=== PATIENT | female | born 1950 | race Caucasian/White ===

== ENCOUNTER 2020-07-27 07:59 | Outpatient (REF) | payer MEDICARE, SELFPAY ==
[2020-07-27 09:11] LABS: MANUAL DIFF FLAG NO
[2020-07-27 09:15] LABS: Basophils Absolute Auto 0.1 X10*3/uL (0.0-0.2); Basophils Percent Auto 0.9 % (0-2); Eosinophils Absolute Auto 0.6 X10*3/uL (0.0-0.4); Eosinophils Percent Auto 6.8 % (0-4); Hematocrit 38.4 % (37-47); Hemoglobin 12.1 g/dl (12.0-16.0); Imm Gran Abs Auto 0.04 X10*3/uL (0.00-0.03); Imm Gran Pct Auto 0.5 % (0.0-0.4); Lymphocytes Absolute Auto 1.8 X10*3/uL (1.2-4.9); Lymphocytes Percent Auto 21.2 % (20-40); Mean Corpuscular HGB Conc 31.5 g/dl (31.0-35.0); Mean Corpuscular Hemoglobin 28.6 pg (27.0-33.0); Mean Corpuscular Volume 90.8 fL (80-98); Mean Platelet Volume 11.5 fL (9.4-12.3); Monocytes Absolute Auto 0.9 X10*3/uL (0.1-1.2); Monocytes Percent Auto 10.5 % (2-11); Neutrophils Absolute Auto 5.1 X10*3/uL (2.0-8.3); Neutrophils Percent Auto 60.1 % (45-73); Platelet Count 264 X10*3/uL (160-400); Red Blood Count 4.23 X10*6/uL (4.20-5.50); White Blood Count 8.5 X10*3/uL (4.8-10.8)
[2020-07-27 09:52] LABS: Alanine Aminotransferase 78 U/L (0-31); Albumin Level 3.4 g/dL (3.5-5.0); Alkaline Phosphatase 128 U/L (39-117); Anion Gap 13 (12-20); Aspartate Amino Transferase 68 U/L (5-31); Bilirubin Total 0.5 mg/dL (0.0-1.0); Blood Urea Nitrogen 17 mg/dL (9-16); Calcium 8.4 mg/dL (8.4-10.2); Carbon Dioxide 23 mmol/L (22-29); Chloride 108 mmol/L (96-108); Cholesterol 89 mg/dL; Estimated Glomerular Filt Rate > 60; Glucose Fasting 87 mg/dL (60-99); HDL Cholesterol 35 mg/dL; LDL Cholesterol Calculated 40 mg/dl; Potassium 4.4 mmol/L (3.3-5.1); Sodium 140 mmol/L (135-145); Total Protein 6.4 g/dL (6.5-8.0); Triglycerides 74 mg/dL
== END 2020-07-27 08:00 | disposition home or self-care (01) ==
LOC: HO.LAB 07:59
PROVIDERS: PCP Internal Medicine; Visit Provider Internal Medicine
DX: Z00.00 Encounter for general adult medical examination without abnormal findings (principal); E03.9 Hypothyroidism, unspecified; E11.9 Type 2 diabetes mellitus without complications
CPT/HCPCS: 36415; 80053; 80061; 84443; 85025

== ENCOUNTER 2021-07-15 07:43 | Outpatient (REF) | payer MEDICARE, SELFPAY ==
[2021-07-15 08:53] LABS: Alanine Aminotransferase 22 U/L (0-31); Aspartate Amino Transferase 25 U/L (5-31); Cholesterol 96 mg/dL; HDL Cholesterol 34 mg/dL; LDL Cholesterol Calculated 45 mg/dl; Triglycerides 88 mg/dL
== END 2021-07-15 07:44 | disposition home or self-care (01) ==
LOC: HO.LAB 07:43
PROVIDERS: PCP Internal Medicine; Visit Provider Internal Medicine Cardiovascular Disease
DX: I21.3 ST elevation (STEMI) myocardial infarction of unspecified site (principal)
CPT/HCPCS: 36415; 80061; 84450; 84460

== ENCOUNTER 2021-11-30 09:39 | Emergency (ER) | payer OTHER, MEDICARE, SELFPAY ==
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
[2021-11-30 09:49] VITALS: BP 174/80; BP 183/95; PULSE 110; PULSE 82; RESP 16; TEMP 36.8; O2SAT 98; BMI 27.4
[2021-11-30 11:34] VITALS: BP 142/78; PULSE 94; RESP 20; O2SAT 100
[2021-11-30 11:38] LABS: MANUAL DIFF FLAG NO
[2021-11-30 11:39] LABS: Basophils Absolute Auto 0.1 X10*3/uL (0.0-0.2); Basophils Percent Auto 0.9 % (0-2); Eosinophils Absolute Auto 0.2 X10*3/uL (0.0-0.4); Eosinophils Percent Auto 2.1 % (0-4); Hematocrit 44.9 % (37.0-47.0); Hemoglobin 14.1 g/dl (12.0-16.0); Imm Gran Abs Auto 0.01 X10*3/uL (0.00-0.03); Imm Gran Pct Auto 0.1 % (0.0-0.4); Lymphocytes Absolute Auto 1.5 X10*3/uL (1.2-4.9); Mean Corpuscular HGB Conc 31.4 g/dl (31.0-35.0); Mean Corpuscular Hemoglobin 27.4 pg (27.0-33.0); Mean Corpuscular Volume 87.2 fL (80.0-98.0); Mean Platelet Volume 10.7 fL (9.4-12.3); Monocytes Absolute Auto 0.6 X10*3/uL (0.1-1.2); Monocytes Percent Auto 7.9 % (2-11); Neutrophils Absolute Auto 4.8 x10*3/uL (2.0-8.3); Platelet Count 202 X10*3/uL (160-400); Red Blood Count 5.15 X10*6/uL (4.20-5.50); Red Cell Distribution Width 15.4 % (11.0-16.0)
[2021-11-30 12:00] LABS: Troponin-I High Sensitivity 23.3 ng/L (<3.5-17.0)
[2021-11-30 12:31] LABS: Alanine Aminotransferase 17 U/L (0-31); Albumin Level 3.4 g/dL (3.5-5.0); Alkaline Phosphatase 73 U/L (39-117); Anion Gap 15 (12-20); Aspartate Amino Transferase 27 U/L (5-31); Bilirubin Total 0.4 mg/dL (0.0-1.0); Blood Urea Nitrogen 12 mg/dL (9-16); C Reactive Protein 0.16 mg/dL (< or = 0.50); Calcium 8.6 mg/dL (8.4-10.2); Carbon Dioxide 23 mmol/L (22-29); Chloride 109 mmol/L (96-108); Creatinine Clr Calc Pharmacy 65.8; Estimated Glomerular Filt Rate > 60; Glucose Random 100 mg/dL (60-115); Sodium 142 mmol/L (135-145); Total Protein 6.7 g/dL (6.5-8.0)
[2021-11-30 12:35] LABS: Erythrocyte Sedimentation Rate 22 MM/HR (0-20)
[2021-11-30 12:36] LABS: Prothrombin Time 11.4 SEC (10.0-13.1)
[2021-11-30 12:39] LABS: Partial Thromboplastin Time 31.2 SEC (26.0-36.4)
[2021-11-30 12:59] LABS: Troponin-I High Sensitivity 40.5 ng/L (<3.5-17.0)
[2021-11-30 14:18] VITALS: BP 130/79; PULSE 85; RESP 14; O2SAT 98
[2021-11-30 14:20] LABS: Troponin-I High Sensitivity 55.8 ng/L (<3.5-17.0)
--- NOTE | 2021-11-30 15:15 | PC.NURSE ---
call out to [facility] transfer line @[phone] regarding transfer
--- NOTE | 2021-11-30 16:31 | PC.NURSE ---
report given to Alexandre bowen at [facility]
== END 2021-11-30 16:42 | disposition short-term general hospital (02) ==
PROVIDERS: Physician Assistant Medical; Emergency Provider Emergency Medicine; PCP Internal Medicine
DX: S26.91XA Contusion of heart, unspecified with or without hemopericardium, initial encounter (principal); V43.02XA Car driver injured in collision with other type car in nontraffic accident, initial encounter; I30.9 Acute pericarditis, unspecified; R77.8 Other specified abnormalities of plasma proteins; M54.2 Cervicalgia; M25.511 Pain in right shoulder; M54.9 Dorsalgia, unspecified; Z87.891 Personal history of nicotine dependence; Z95.0 Presence of cardiac pacemaker; Z79.82 Long term (current) use of aspirin; Z79.02 Long term (current) use of antithrombotics/antiplatelets; Y93.89 Activity, other specified; Y92.481 Parking lot as the place of occurrence of the external cause; Y99.9 Unspecified external cause status
CPT/HCPCS: 36415; 70450; 71250; 72125; 74176; 80053; 82550; 84484; 85025; 85610; 85652; 85730; 86140; 93005; 99285

== ENCOUNTER 2022-09-11 18:22 | Inpatient (IN) | payer MEDICARE, SELFPAY ==
--- NOTE | ~2022-09-11 | XR_ITS ---
EXAMINATION: XR CHEST CLINICAL INFORMATION: Chest pain. COMPARISON: CT chest 11/30/2021. TECHNIQUE: Frontal view of the chest was obtained. FINDINGS: Left-sided pacer with leads projecting over the right atrium and right ventricle. Stable prominence of the cardiomediastinal silhouette. Atherosclerotic disease of the aortic arch. Asymmetric focal haziness in the left lower lobe. No pleural effusion or pneumothorax. No acute osseous findings. The visualized upper abdomen is within normal limits. XR/XR chest 1V IMPRESSION: Asymmetric focal haziness in the left lower lung that could be related with pneumonia in the appropriate clinical context. Recommend a follow-up imaging after treatment.
--- NOTE | 2022-09-11 18:24 | ECG_ITS ---
Test Reason : CP Blood Pressure : / mmHG Vent. Rate : 085 BPM Atrial Rate : 085 BPM P-R Int : 184 ms QRS Dur : 124 ms QT Int : 398 ms P-R-T Axes : 050 -19 113 degrees QTc Int : 473 ms Atrial-sensed ventricular-paced rhythm with occasional Premature ventricular complexes Abnormal ECG When compared with ECG of 30-NOV-2021 11:54, Premature ventricular complexes are now Present Vent. rate has decreased BY 13 BPM Referred By: Apryl Leonard Electronically Signed By:Barry Gilliam
[2022-09-11 18:27] VITALS: BP 194/86; PULSE 90; RESP 16; TEMP 36.9; O2SAT 98; BMI 29.8
[2022-09-11] MEDS: Aspirin 81 MG TAB.CHEW 243 MG PO (19:03)
[2022-09-11] MEDS: Nitroglycerin 0.4 MG TAB.SUBL SUBLINGUAL (19:05)
--- NOTE | 2022-09-11 19:27 | PC.NURSE ---
Pt labs drawn and sent, medicated with SL nitro and asa, reports no pain but still some chest tightness. mild shortness of breath, O2 sat 96%, pt placed on 1L oxygen via nasal cannula. notified.
[2022-09-11 19:45] LABS: Alanine Aminotransferase 15 U/L (0-31); Albumin Level 3.3 g/dL (3.5-5.0); Alkaline Phosphatase 78 U/L (39-117); Anion Gap 10 (12-20); Aspartate Amino Transferase 27 U/L (5-31); Bilirubin Direct 0.1 mg/dL (0.0-0.5); Bilirubin Total 0.4 mg/dL (0.0-1.0); Blood Urea Nitrogen 12 mg/dL (9-16); Calcium 8.6 mg/dL (8.4-10.2); Carbon Dioxide 24 mmol/L (22-29); Chloride 110 mmol/L (96-108); Creatinine Clr Calc Pharmacy 60.4; Estimated Glomerular Filt Rate > 60; Glucose Random 121 mg/dL (60-115); Magnesium 2.2 mg/dL (1.6-2.6); Potassium 5.1 mmol/L (3.3-5.1); Sodium 139 mmol/L (135-145); Total Protein 6.7 g/dL (6.5-8.0)
[2022-09-11 19:56] LABS: Troponin-I High Sensitivity < 2.7 ng/L (<3.5-17.0)
[2022-09-11 20:09] LABS: Basophils Absolute Auto 0.1 X10*3/uL (0.0-0.2); Basophils Percent Auto 1.3 % (0-2); Eosinophils Absolute Auto 0.2 X10*3/uL (0.0-0.4); Eosinophils Percent Auto 2.7 % (0-4); Hematocrit 41.1 % (37.0-47.0); Hemoglobin 13.1 g/dl (12.0-16.0); Imm Gran Abs Auto 0.04 X10*3/uL (0.00-0.03); Imm Gran Pct Auto 0.6 % (0.0-0.4); Lymphocytes Absolute Auto 1.5 X10*3/uL (1.2-4.9); Lymphocytes Percent Auto 22.1 % (20-40); MANUAL DIFF FLAG SCAN; Mean Corpuscular HGB Conc 31.9 g/dl (31.0-35.0); Mean Corpuscular Hemoglobin 27.5 pg (27.0-33.0); Mean Corpuscular Volume 86.2 fL (80.0-98.0); Monocytes Absolute Auto 0.6 X10*3/uL (0.1-1.2); Monocytes Percent Auto 9.1 % (2-11); Neutrophils Absolute Auto 4.4 x10*3/uL (2.0-8.3); Neutrophils Percent Auto 64.2 % (45-73); PLT CLUMP 1; Red Blood Count 4.77 X10*6/uL (4.20-5.50); Red Cell Distribution Width 14.4 % (11.0-16.0); SCAN SMEAR FLAG 1
[2022-09-11 20:11] LABS: White Blood Count 6.9 X10*3/uL (4.8-10.8)
[2022-09-11 20:13] LABS: Platelet Count 184 X10*3/uL (160-400)
[2022-09-11 20:14] LABS: SLIDE REVIEW VERIFIED
--- NOTE | 2022-09-11 20:51 | ED.CHESTPAIN ---
HPI - Chest Pain General Chief Complaint: Chest Pain Stated Complaint: Possible Heart Attack/Tightness in chest Time Seen by Provider: 09/11/22 18:30 Source: patient Mode of arrival: ambulatory Limitations: no limitations History of Present Illness HPI narrative: 72-year-old female with history of coronary artery disease with a pacemaker, stent placed in 2020 presents with chest pain. The chest pain is substernal. Described as a heaviness and tightness. Symptoms occurred at rest. There is no radiation of pain. There is associated nausea but no vomiting and there is also some associated shortness of breath. Patient has never had symptoms like this before. When she started having the pain, the symptoms are severe and clutching her chest. At this time, the symptoms are quite mild. She does have some mild shortness of breath complaints. She has no cough, mucus production. She denies any swelling in her legs. She has no history of PE or DVT. She did take a low-dose aspirin earlier today. Related Data Home Medications Medication Instructions Recorded Confirmed aspirin 81 mg tablet,delayed 81 mg PO DAILY 05/30/20 12/27/21 release (Adult Low Dose Aspirin) atorvastatin 80 mg tablet 80 mg PO BEDTIME 05/30/20 12/27/21 carvedilol 3.125 mg tablet 3.125 mg PO BID 12/27/21 12/27/21 Allergies Allergy/AdvReac Type Severity Reaction Status Date / Time No Known Allergies Allergy Mild N/A Verified 09/11/22 18:26 Review of Systems Review of Systems: CONSTITUTIONAL: Denies weight loss, fever and chills. HEENT: Denies changes in vision and hearing. RESPIRATORY: + SOB - cough. CV: Denies palpitations + CP. GI: Denies abdominal pain, nausea, vomiting and diarrhea. : Denies dysuria and urinary frequency. MSK: Denies myalgia and joint pain. SKIN: Denies rash and pruritus. NEUROLOGICAL: Denies headache and syncope. PSYCHIATRIC: Denies recent changes in mood. Denies anxiety and depression. All other ROS are negative unless in HPI PMFSH Past Medical History Medical History Coronary artery disease History of pacemaker Surgical History History of coronary artery stent placement Family History Family History Mother No problems noted. Father No problems noted. Social History Social History Alcohol intake: never Patient Tobacco Use Status: Former Tobacco user Quit Date: 05/17/20 Tobacco use type: Cigarette Cigarette Packs Per Day: 0.25 Advance Directives: No Advance Directives Information Provided: Yes Physical Exam Vital Signs: Vital Signs: Last Vital Signs Temp 98.5 F 09/11/22 18:27 Pulse 90 09/11/22 18:27 Resp 16 09/11/22 18:27 BP 194/86 H 09/11/22 18:27 Pulse Ox 98 09/11/22 18:27 O2 Del Method Room Air 09/11/22 18:27 BMI result Body Mass Index 29.8 GEN: Well developed, no acute distress, alert, oriented HEENT: Normocephalic, atraumatic, normal external ears, nose appears normal, no oropharyngeal edema or exudates Eyes: Normal to appearance Neck: Supple, no lymphadenopathy Respiratory: Talks in complete sentences, no respiratory distress, clear to auscultation bilaterally Cardiovascular: Regular rate and rhythm, no murmurs rubs or gallops Abdomen: Soft, nontender, nondistended, no guarding, no rebound Back: No CVA tenderness Extremities: No clubbing cyanosis or edema Neurologic: No focal neurologic deficits, cranial nerves 2-12 intact, strength is 5/5 bilaterally Skin: No rash Course Course Course Narrative: 72-year-old female with history of coronary artery disease with a very good story for acute cardiac pain. She was having significant substernal chest pain that was described as tightening heavy. Did not radiate to her back or to her extremities or jaw. Symptoms did occur at rest which is somewhat atypical however she does have a coronary stent in place and a pacemaker. She is currently chest pain-free denies any shortness of breath. She has received a total of 324 mg of aspirin. I am starting her on heparin drip for unstable angina. Chest x-ray did not reveal any acute cardiopulmonary disease, wide mediastinum, apical cap. She has equal pulses bilaterally. Doubt aortic dissection. I discussed all results with the patient. She understands the reasoning for admission at this time. There is no definite indication to transfer to a higher level of care at this time. There is no definite indication for emergent cardiac catheterization. Reevaluation(s) Reevaluation #1: HEART Pathway for Early Discharge in Acute Chest Pain from [employer] on 09/11/2022 All calculations should be rechecked by clinician prior to use RESULT SUMMARY: 7 points HEART Pathway Score High risk 12-65% 30-day MACE Admit to hospital or observation. Further testing indicated. INPUTS: History ?> 2 = Highly suspicious EKG ?> 1 = Non-specific repolarization disturbance Age ?> 2 = >=5 Risk factors ?> 2 = >= risk factors or history of atherosclerotic disease Initial troponin ?> 0 = <=ormal limit Time: 20:51 Medications Administered Discontinued Medications Generic Name Dose Route Start Last Admin Trade Name Freq PRN Reason Stop Dose Admin Aspirin 243 mg 09/11/22 18:57 09/11/22 19:03 Aspirin 81 Mg Tab.Chew PO 09/11/22 18:58 243 mg ONCE ONE Administration Nitroglycerin 0.4 mg 09/11/22 18:57 09/11/22 19:05 Nitroglycerin 0.4 Mg Tab.Subl SUBLINGUAL 09/11/22 18:58 0.4 mg ONCE ONE Administration Medical Decision Making Medical Decision Making [facility] Narrative: 72-year-old female with history of coronary artery disease presents with chest pain. Story is good for cardiac pain. Initial EKG shows a paced rhythm. Will obtain a chest x-ray, placed on a construction carpenters helper, obtain at least 1 set of cardiac enzymes. Patient will get aspirin. Will try sublingual nitroglycerin. Differential diagnosis includes acute coronary syndrome, NSTEMI, unstable angina, atypical chest pain, musculoskeletal chest pain, anxiety, panic, less likely PE, dissection. Regardless of our findings tonight, patient will warrant hospitalization given the suspected elevated heart score. Differential Diagnosis Differential Diagnoses: The differential diagnosis associated with the presentation includes (See above) Admission/Observation Consideration of admission/observation: Escalation of care including admission/observation considered Consult Healthcare Provider Management of the patient was discussed with: Hospitalist Lab Data [facility] Lab Attestation statement: I reviewed the patient's lab results. 09/11/22 19:23 09/11/22 19:23 Labs: Lab Results 09/11/22 09/11/22 09/11/22 Range/Units 19:23 19:23 19:23 WBC 6.9 (4.8-10.8) X10*3/uL RBC 4.77 (4.20-5.50) X10*6/uL Hgb 13.1 (12.0-16.0) g/dl Hct 41.1 (37.0-47.0) % MCV 86.2 (80.0-98.0) fL MCH 27.5 (27.0-33.0) pg MCHC 31.9 (31.0-35.0) g/dl RDW 14.4 (11.0-16.0) % Plt Count 184 (160-400) X10*3/uL MPV 11.0 (9.4-12.3) fL Immature Gran % (Auto) 0.6 H (0.0-0.4) % Neut % (Auto) 64.2 (45-73) % Lymph % (Auto) 22.1 (20-40) % [place] % (Auto) 9.1 (2-11) % Eos % (Auto) 2.7 (0-4) % Baso % (Auto) 1.3 (0-2) % Lymph # (Auto) 1.5 (1.2-4.9) X10*3/uL [place] # (Auto) 0.6 (0.1-1.2) X10*3/uL Eos # (Auto) 0.2 (0.0-0.4) X10*3/uL Baso # (Auto) 0.1 (0.0-0.2) X10*3/uL Abs Immat Gran (auto) 0.04 H (0.00-0.03) X10*3/uL Absolute Neuts (auto) 4.4 (2.0-8.3) x10*3/uL Absolute Nucleated RBC 0.000 (0.0-0.012) X10*3/uL Nucleated RBC % (auto) 0.0 (0.0-0.2) /100WBC Smear Tech's Comments VERIFIED Sodium 139 (135-145) mmol/L Potassium 5.1 (3.3-5.1) mmol/L Chloride 110 H (96-108) mmol/L Carbon Dioxide 24 (22-29) mmol/L Anion Gap 10 L (12-20) BUN 12 (9-16) mg/dL Creatinine 0.83 (0.5-1.4) mg/dL Estim Creat Clear Calc 60.4 Estimated GFR > 60 Random Glucose 121 H (60-115) mg/dL Calcium 8.6 (8.4-10.2) mg/dL Magnesium 2.2 (1.6-2.6) mg/dL Total Bilirubin 0.4 (0.0-1.0) mg/dL Direct Bilirubin 0.1 (0.0-0.5) mg/dL AST 27 (5-31) U/L ALT 15 (0-31) U/L Alkaline Phosphatase 78 (39-117) U/L Troponin I High Sens < 2.7 (<3.5-17.0) ng/L Total Protein 6.7 (6.5-8.0) g/dL Albumin 3.3 L (3.5-5.0) g/dL Independent Interpretation I performed an independent interpretation of an: EKG (Ventricularly paced rhythm, heart rate 85, PVC similarly findings on 11/30/2021) and Plain X-Ray (No acute cardiopulmonary disease) Radiology Impression Discussion of test interpretation with radiology: I have reviewed the radiologist's reading. Radiologist Impression: XR/XR chest 1V IMPRESSION: Asymmetric focal haziness in the left lower lung that could be related with pneumonia in the appropriate clinical context. Recommend a follow-up imaging after treatment. ? Dictated By: Jany De Luna Signed By: <Electronically signed by Deysi De Luna in OV> 09/11/22 1900 External Record Review External record reviewed: Other ([facility] cardiology records) Tests considered The following testing was considered but not selected: CT chest: No definite indication at this time Prescription Management I considered prescription management with: Pain Medication Chronic Conditions Patient?s care impacted by: Hypertension and Other (CAD) Discharge Plan Discharge Clinical Impression: Unstable angina Patient Disposition: Admitted As Inpatient Prescriptions: No Action atorvastatin 80 mg tablet 80 mg PO BEDTIME aspirin [Adult Low Dose Aspirin] 81 mg tablet,delayed release (DR/EC) 81 mg PO DAILY carvedilol 3.125 mg tablet 3.125 mg PO BID
[2022-09-11 21:18] VITALS: BMI 30.3
[2022-09-11 21:20] LABS: Hemoglobin 13.1 g/dl (12.0-16.0); Mean Corpuscular Hemoglobin 27.8 pg (27.0-33.0); Mean Platelet Volume 10.3 fL (9.4-12.3); Platelet Count 210 X10*3/uL (160-400); Red Blood Count 4.71 X10*6/uL (4.20-5.50); Red Cell Distribution Width 14.4 % (11.0-16.0); White Blood Count 9.3 X10*3/uL (4.8-10.8)
[2022-09-11 21:26] LABS: Prothrombin Time 11.9 SEC (10.0-13.1)
[2022-09-11 21:29] LABS: PTT Heparin Drip 30.9 SEC (53-77.9)
[2022-09-11 21:55] LABS: Troponin-I High Sensitivity 9.1 ng/L (<3.5-17.0)
--- NOTE | 2022-09-11 22:00 | P.CONHOSP_ITS ---
History of Present Illness Data of Consult Primary Care Provider: Nathan Orr MD [facility] Medical History Coronary artery disease History of pacemaker Family History Mother No problems noted. Father No problems noted. Surgical History History of coronary artery stent placement Social History Alcohol intake: never Patient Tobacco Use Status: Former Tobacco user Quit Date: 05/17/20 Tobacco use type: Cigarette Cigarette Packs Per Day: 0.25 Advance Directives: No Advance Directives Information Provided: Yes Meds Allergies Allergy/AdvReac Type Severity Reaction Status Date / Time No Known Allergies Allergy Mild N/A Verified 09/11/22 18:26 Active Medications: Current Medications Acetaminophen (Acetaminophen 325 Mg Tablet) 650 mg PO Q6H PRN PRN Reason: Pain, Mild (Pain Scale 1-3) Docusate Sodium (Docusate Sodium 100 Mg Capsule) 100 mg PO DAILY PRN PRN Reason: Constipation Heparin Sodium (Porcine) (Heparin Sodium,Porcine 5,000 Unit/Ml Vial) 3,200 unit 40 unit/kg (3200 unit) IVPUSH PROTOCOL BOLUS PRN; Protocol PRN Reason: 40 unit/kg - Heparin Protocol Heparin Sodium (Porcine) (Heparin Sodium,Porcine 5,000 Unit/Ml Vial) 6,400 unit 80 unit/kg (6400 unit) IVPUSH PROTOCOL BOLUS PRN; Protocol PRN Reason: 80 unit/kg - Heparin Protocol Heparin Sodium/Sodium Chloride (Heparin Sodium,Porcine/1/2ns) 25,000 unit in 250 mls @ 0 mls/hr IVCONT .Q0M JOSEPHINE; Protocol Ondansetron HCl (Ondansetron Hcl 4 Mg/2 Ml Vial) 4 mg IVPUSH Q8H PRN PRN Reason: Nausea and Vomiting Pharmacy Consult (Consult Rx Perform Med Rec) 1 each MISCELLANE ONCE PRN PRN Reason: Consult order Sodium Chloride (0.9 % Sodium Chloride Flush 3 Ml Syringe) [facility] Home Medications Medication Instructions Recorded Confirmed Last Taken Type aspirin 81 mg tablet,delayed 81 mg PO DAILY 05/30/20 12/27/21 Unknown History release (Adult Low Dose Aspirin) atorvastatin 80 mg tablet 80 mg PO BEDTIME 05/30/20 12/27/21 Unknown History carvedilol 3.125 mg tablet 3.125 mg PO BID 12/27/21 12/27/21 Unknown History Physical Exam Vital Signs and Narrative: Vital Signs: Last Vital Signs Temp 98.5 F 09/11/22 18:27 Pulse 90 09/11/22 18:27 Resp 16 09/11/22 18:27 BP 194/86 H 09/11/22 18:27 Pulse Ox 98 09/11/22 18:27 O2 Del Method Room Air 09/11/22 18:27 BMI result Body Mass Index 30.3 Results Labs 09/11/22 21:14 09/11/22 19:23 Labs: Laboratory Results - last 24 hr 09/11/22 09/11/22 09/11/22 19:23 19:23 19:23 MCV 86.2 MCH 27.5 MCHC 31.9 RDW 14.4 Plt Count 184 MPV 11.0 Immature Gran % (Auto) 0.6 H Neut % (Auto) 64.2 Lymph % (Auto) 22.1 [place] % (Auto) 9.1 Eos % (Auto) 2.7 Baso % (Auto) 1.3 Lymph # (Auto) 1.5 [place] # (Auto) 0.6 Eos # (Auto) 0.2 Baso # (Auto) 0.1 Abs Immat Gran (auto) 0.04 H Absolute Neuts (auto) 4.4 Absolute Nucleated RBC 0.000 Nucleated RBC % (auto) 0.0 Smear Tech's Comments VERIFIED PT INR aPTT Heparin Protocol Anion Gap 10 L Estim Creat Clear Calc 60.4 Estimated GFR > 60 Random Glucose 121 H Calcium 8.6 Magnesium 2.2 Total Bilirubin 0.4 Direct Bilirubin 0.1 AST 27 ALT 15 Alkaline Phosphatase 78 Troponin I High Sens < 2.7 Total Protein 6.7 Albumin 3.3 L 09/11/22 09/11/22 09/11/22 21:14 21:14 21:14 MCV 87.0 MCH 27.8 MCHC 32.0 RDW 14.4 Plt Count 210 MPV 10.3 Immature Gran % (Auto) Neut % (Auto) Lymph % (Auto) [place] % (Auto) Eos % (Auto) Baso % (Auto) Lymph # (Auto) [place] # (Auto) Eos # (Auto) Baso # (Auto) Abs Immat Gran (auto) Absolute Neuts (auto) Absolute Nucleated RBC 0.000 Nucleated RBC % (auto) 0.0 Smear Tech's Comments PT 11.9 INR 1.0 aPTT Heparin Protocol 30.9 L Anion Gap Estim Creat Clear Calc Estimated GFR Random Glucose Calcium Magnesium Total Bilirubin Direct Bilirubin AST ALT Alkaline Phosphatase Troponin I High Sens 9.1 D Total Protein Albumin Imaging Radiologist's Impressions: Impressions Chest X-Ray 09/11/22 18:48 IMPRESSION: Asymmetric focal haziness in the left lower lung that could be related with pneumonia in the appropriate clinical context. Recommend a follow-up imaging after treatment. Assessment and Plan Time Spent With Patient Time: Total time managing care of this patient today ____ minutes.
--- NOTE | 2022-09-11 22:06 | P.HPHOSP_ITS ---
History of Present Illness Date of Service: 09/11/22 Attending physician on admission: German Maza Chief Complaint: chest pain 72-year-old female with history of coronary artery disease with h/o posterior STEMI s/p POBA and IDALIA to LCx, h/o complete heart block s/p pacemaker, ischemic cardiomyopathy, htn, and former smoker with 40+ pack year history who quit 2 years ago presents to the ED earlier to day for evaluation of chest pain which started about 1 hour prior to arrival. Pain was retrosternal in nature rated 9/10 described as burning and squeezing without any radiation. Pain at rest and with exertion. Associated symptoms included some nausea and lightheadedness. No diaphoresis, sob, syncope, vomiting, cough, fever, chills. On arrival, pt hypertensive to 194/86, vitals otherwise stable. No leukocytosis or anemia. Renal function normal, electrolytes normal. Initial troponin undetectable, repeat 9.1. CXR shows asymmetric focal haziness in the left lower lung, otherwi se negative for any acute abnormality. EKG shows atrial sensed ventricular paced rhythm with occasional PVCs, rate 85. In the ED, given the 243 mg aspirin and nitro tab with full resolution of chest pain and improvement in blood pressure to 146/83. Patient started on heparin drip per protocol for management unstable angina to be admitted for further management. Review of Systems Review of Systems: General: No fevers, malaise, unintentional weight loss HEENT: No blurred vision, diplopia. No sore throat, nasal congestion, rhinorrhea, sinus pain, ear pain Cardiovascular: +chest pain. No palpitations, or leg edema Respiratory: No shortness of breath, wheezing, cough GI: +nausea. No abdominal pain, vomiting, diarrhea, constipation, melena, hematochezia : No dysuria, hematuria, increased urinary frequency, decreased urinary output MSK: No myalgia, back pain Neuro: No headaches, weakness, paresthesias Skin: No rashes or lesions [facility] Medical History Adrenal nodule Coronary artery disease History of complete heart block History of pacemaker History of ST elevation myocardial infarction (STEMI) Hypertension Ischemic cardiomyopathy Family History Mother No problems noted. Father No problems noted. Surgical History History of coronary artery stent placement Social History Alcohol intake: never Patient Tobacco Use Status: Former Tobacco user Quit Date: 05/17/20 Tobacco use type: Cigarette Cigarette Packs Per Day: 0.25 Advance Directives: No Advance Directives Information Provided: Yes Meds Allergies Allergy/AdvReac Type Severity Reaction Status Date / Time No Known Allergies Allergy Mild N/A Verified 09/11/22 18:26 Active Medications: Current Medications Acetaminophen (Acetaminophen 325 Mg Tablet) 650 mg PO Q6H PRN PRN Reason: Pain, Mild (Pain Scale 1-3) Docusate Sodium (Docusate Sodium 100 Mg Capsule) 100 mg PO DAILY PRN PRN Reason: Constipation Heparin Sodium (Porcine) (Heparin Sodium,Porcine 5,000 Unit/Ml Vial) 3,200 unit 40 unit/kg (3200 unit) IVPUSH PROTOCOL BOLUS PRN; Protocol PRN Reason: 40 unit/kg - Heparin Protocol Heparin Sodium (Porcine) (Heparin Sodium,Porcine 5,000 Unit/Ml Vial) 6,400 unit 80 unit/kg (6400 unit) IVPUSH PROTOCOL BOLUS PRN; Protocol PRN Reason: 80 unit/kg - Heparin Protocol Heparin Sodium/Sodium Chloride (Heparin Sodium,Porcine/1/2ns) 25,000 unit in 250 mls @ 0 mls/hr IVCONT .Q0M JOSEPHINE; Protocol Ondansetron HCl (Ondansetron Hcl 4 Mg/2 Ml Vial) 4 mg IVPUSH Q8H PRN PRN Reason: Nausea and Vomiting Pharmacy Consult (Consult Rx Perform Med Rec) 1 each MISCELLANE ONCE PRN PRN Reason: Consult order Sodium Chloride (0.9 % Sodium Chloride Flush 3 Ml Syringe) 3 ml [facility] Home Medications Medication Instructions Recorded Confirmed Last Taken Type aspirin 81 mg tablet,delayed 81 mg PO DAILY 05/30/20 12/27/21 Unknown History release (Adult Low Dose Aspirin) atorvastatin 80 mg tablet 80 mg PO BEDTIME 05/30/20 12/27/21 Unknown History carvedilol 3.125 mg tablet 3.125 mg PO BID 12/27/21 12/27/21 Unknown History Physical Exam Vital Signs and Narrative: Vital Signs: Last Vital Signs Temp 98.5 F 09/11/22 18:27 Pulse 90 09/11/22 18:27 Resp 16 09/11/22 18:27 BP 194/86 H 09/11/22 18:27 Pulse Ox 98 09/11/22 18:27 O2 Del Method Room Air 09/11/22 18:27 BMI result Body Mass Index 30.3 Constitutional - Awake and Alert, No apparent distress Eyes - PERRLA, EOMI Cardiovascular - S1S2, RRR, No edema Respiratory - Normal lung expansion, Normal respiratory effort, No respiratory distress, CTA bilaterally Gastrointestinal - NT / ND; +BS; No rebound or guarding Extremities - no calf tenderness bilaterally, no swelling Skin - Warm/Dry Neurological - Alert & oriented x3 Psychological - Appropriate affect Results Labs 09/11/22 21:14 09/11/22 19:23 Labs: Laboratory Results - last 24 hr 09/11/22 09/11/22 09/11/22 19:23 19:23 19:23 MCV 86.2 MCH 27.5 MCHC 31.9 RDW 14.4 Plt Count 184 MPV 11.0 Immature Gran % (Auto) 0.6 H Neut % (Auto) 64.2 Lymph % (Auto) 22.1 [place] % (Auto) 9.1 Eos % (Auto) 2.7 Baso % (Auto) 1.3 Lymph # (Auto) 1.5 [place] # (Auto) 0.6 Eos # (Auto) 0.2 Baso # (Auto) 0.1 Abs Immat Gran (auto) 0.04 H Absolute Neuts (auto) 4.4 Absolute Nucleated RBC 0.000 Nucleated RBC % (auto) 0.0 Smear Tech's Comments VERIFIED PT INR aPTT Heparin Protocol Anion Gap 10 L Estim Creat Clear Calc 60.4 Estimated GFR > 60 Random Glucose 121 H Calcium 8.6 Magnesium 2.2 Total Bilirubin 0.4 Direct Bilirubin 0.1 AST 27 ALT 15 Alkaline Phosphatase 78 Troponin I High Sens < 2.7 Total Protein 6.7 Albumin 3.3 L 09/11/22 09/11/22 09/11/22 21:14 21:14 21:14 MCV 87.0 MCH 27.8 MCHC 32.0 RDW 14.4 Plt Count 210 MPV 10.3 Immature Gran % (Auto) Neut % (Auto) Lymph % (Auto) [place] % (Auto) Eos % (Auto) Baso % (Auto) Lymph # (Auto) [place] # (Auto) Eos # (Auto) Baso # (Auto) Abs Immat Gran (auto) Absolute Neuts (auto) Absolute Nucleated RBC 0.000 Nucleated RBC % (auto) 0.0 Smear Tech's Comments PT 11.9 INR 1.0 aPTT Heparin Protocol 30.9 L Anion Gap Estim Creat Clear Calc Estimated GFR Random Glucose Calcium Magnesium Total Bilirubin Direct Bilirubin AST ALT Alkaline Phosphatase Troponin I High Sens 9.1 D Total Protein Albumin Imaging Radiologist's Impressions: Impressions Chest X-Ray 09/11/22 18:48 IMPRESSION: Asymmetric focal haziness in the left lower lung that could be related with pneumonia in the appropriate clinical context. Recommend a follow-up imaging after treatment. Assessment and Plan (1) Unstable angina: Status: Acute Plan 72-year-old female with history of coronary artery disease with h/o posterior STEMI s/p POBA and IDALIA to LCx 04/2020, h/o complete heart block s/p pacemaker, ischemic cardiomyopathy, htn, and former smoker with 40+ pack year history who quit 2 years ago admitted for further management of unstable angina. #Unstable angina -Initial trop <2.7, repeat 9.0 -Repeat trop am -EKG without any acute ischemic changes -IV heparin per protocol -Echocardiogram am -Cardiology consult -Cardiac diet -continue carvedilol, asa, statin -Monitor on telemetry #CAD/Ischemic cardiomyopathy -as above -follows outpatient with Dr. Mayes in cardiology DVt prophylaxis- heparin drip full code Pt requires inpt stay at least 2 midnights for management of unstable angina on heparin drip per protocol Time Spent With Patient Time: Total time managing care of this patient today ____ minutes. Quality Stroke Does the patient have a stroke diagnosis?: No VTE Prior VTE?: No VTE Risk Level:: Medical - moderate - high VTE Device Contraindication: Treatment Not Indicated VTE Drug Contraindication: N/A - Med Ordered
[2022-09-11] MEDS: Heparin Sodium,Porcine 5,000 UNIT/ML VIAL 6300 UNIT IVPUSH (22:09)
[2022-09-11] MEDS: Heparin Sodium,Porcine/1/2NS 25,000 UNIT/250 ML IV.SOLN 11.23 UNIT IVCONT (22:13)
[2022-09-11] MEDS: carvediloL 3.125 MG TABLET PO (22:20)
[2022-09-11 23:01] VITALS: BP 113/73; PULSE 84; RESP 22; O2SAT 97
--- NOTE | 2022-09-12 03:38 | PC.NURSE ---
Pt given room 483-1, report given to SHANTEL Palma
[2022-09-12 03:58] VITALS: BP 141/77; PULSE 78; RESP 18; TEMP 36.5; O2SAT 96
[2022-09-12 06:36] LABS: MANUAL DIFF FLAG NO
[2022-09-12 06:44] LABS: Basophils Absolute Auto 0.1 X10*3/uL (0.0-0.2); Basophils Percent Auto 0.6 % (0-2); Eosinophils Absolute Auto 0.2 X10*3/uL (0.0-0.4); Eosinophils Percent Auto 1.7 % (0-4); Hemoglobin 12.6 g/dl (12.0-16.0); Imm Gran Abs Auto 0.04 X10*3/uL (0.00-0.03); Imm Gran Pct Auto 0.4 % (0.0-0.4); Lymphocytes Absolute Auto 1.6 X10*3/uL (1.2-4.9); Lymphocytes Percent Auto 17.7 % (20-40); Mean Corpuscular HGB Conc 31.5 g/dl (31.0-35.0); Mean Corpuscular Hemoglobin 27.4 pg (27.0-33.0); Mean Platelet Volume 11.5 fL (9.4-12.3); Monocytes Absolute Auto 0.8 X10*3/uL (0.1-1.2); Monocytes Percent Auto 8.3 % (2-11); Neutrophils Absolute Auto 6.5 x10*3/uL (2.0-8.3); Neutrophils Percent Auto 71.3 % (45-73); Platelet Count 210 X10*3/uL (160-400); Red Cell Distribution Width 14.6 % (11.0-16.0); White Blood Count 9.1 X10*3/uL (4.8-10.8)
[2022-09-12 06:55] LABS: Anion Gap 9 (12-20); Blood Urea Nitrogen 12 mg/dL (9-16); Calcium 8.7 mg/dL (8.4-10.2); Carbon Dioxide 25 mmol/L (22-29); Chloride 108 mmol/L (96-108); Estimated Glomerular Filt Rate > 60; Glucose Random 101 mg/dL (60-115); Potassium 4.4 mmol/L (3.3-5.1); Sodium 138 mmol/L (135-145)
[2022-09-12 06:58] LABS: INTERNATIONAL NORM RATIO 1.1 (0.9-1.1); Prothrombin Time 12.6 SEC (10.0-13.1)
--- NOTE | 2022-09-12 07:00 | CA_ITS ---
Transthoracic Echocardiogram Patient (Last, First, Middle): Lisa Trinidad, Gender: Female Date of : 1950 Age: 72 Procedure Date: 09/12/2022 Procedure Type: Transthoracic Echocardiogram Location: [facility] [place] Height: 162.56 cm Weight: 79.83 kg BSA: 1.85 m2 Heart Rate: 72 bpm BP: 116 / 66 mmHg Coil Winding Supervisor: CORY Referring MD: Chelsea GLYNN Symptoms: unstable angina Study Quality: Adequate ECG Rhythm: Arrhythmia Conclusions: - Normal left ventricular size and systolic function. There is mildly increased left ventricular wall thickness. The visually estimated ejection fraction is between 60-65%. There is evidence of regional wall motion abnormalities. Diastolic function is indeterminate on the basis of available data. - The basal inferior and basal inferoseptal segments are akinetic. - Normal right ventricular cavity size and systolic function. There is a pacemaker wire seen in the right ventricle. Findings Left Ventricle Normal left ventricular size and systolic function. There is mildly increased left ventricular wall thickness. The visually estimated ejection fraction is between 60-65%. There is evidence of regional wall motion abnormalities. Diastolic function is indeterminate on the basis of available data. Wall Motion Rest Echo Findings The basal inferior and basal inferoseptal segments are akinetic. Right Ventricle Normal right ventricular cavity size and systolic function. There is a pacemaker wire seen in the right ventricle. Atria The left atrium is normal in size. The right atrium is normal in size. Aortic Valve Normal aortic valve structure and function. There is no aortic valve stenosis. There is trace (trivial) aortic valve regurgitation. Mitral Valve The mitral valve appears normal. There is no mitral valve regurgitation. There is no mitral valve stenosis. Pulmonic Valve The pulmonic valve is likely normal. Tricuspid Valve Normal tricuspid valve structure and function. Normal right atrial pressure. Mild pulmonary hypertension is present. Great Vessels There is mild dilatation of the ascending aorta measuring 4.00 cm. Venous The inferior vena cava is normal in size and collapses greater than 50% with inspiration. Pericardium/Pleural There is no evidence of pericardial effusion. Prior Study Comparison No prior study available for comparison. Measurements 2D Linear Measurements IVSd: 1.23 0.6-0.9/0.6-1.0 cm LVIDd: 4.43 3.9-5.3/4.2-5.9 cm LVIDd Index: 2.39 2.4-3.2/2.2-3.1 cm/m2 LVIDs: 3.53 2.0-3.6 cm LVPWd: 1.18 0.7-1.1 cm LA Diam: 3.00 2.7-3.8/3.0-4.0 cm LAIDs Index: 1.62 1.5-2.3 cm/m2 LV Mass: 242.40 67-162/88-224 g LV Mass Index: 131.03 43-95/49-115 g/m2 LVOT Diam: 2.20 3.0+(-)1.3 cm 2D Systolic Function EF 4C: 46.90 >55% EF 2C: 58.80 >55% EF BiP: 50.20 >55% Mitral Valve MV Pk E: 0.70 MV PK A: 0.88 MV Decel Time: 182.00 E/A: 0.80 E'Lateral: 4.46 E'Medial: 3.48 E/E' Med: 20.10 E/E' Lat: 15.70 PHT: 53.00 MVA PHT: 4.15 Decel Bartholomew: 3.84 Aortic Valve AoV Pk Terrance: 1.21 AoV Mn Terrance: 0.90 AoV VTI: 0.23 AoV Pk Grad: 6.00 Aov Mn Grad: 4.00 RUBEN Cont.VTI: 3.41 AI Pk Terrance: 3.60 AI Bartholomew: 1.06 LVOT LVOT Pk Terrance: 1.13 LVOT Mn Terrance: 0.83 LVOT VTI: 0.21 LVOT Pk Grad: 5.00 LVOT Mn Grad: 3.00 LVOT Diam: 2.20 LVOT Area: 3.80 Diastolic Function MV Pk E: 0.70 MV Pk A: 0.88 E/A: 0.80 E'Medial: 3.48 E/E' Med: 20.10 E' Laterial: 4.46 E/E' Lat: 15.70 Right Ventricle TAPSE (mm): 23.50 TVS' Terrance: 12.10 Tricuspid Valve TR Pk Terrance: 1.75 TR Pk Grad: 12.00 RA Press: 3.00 RVSP: 15.00 Great Vessels Aorta Sinus of Valsalva: 3.70 2.0-3.5 cm Ao Asc: 4.00 2.1-3.4 cm Pulmonary Valve PV Pk Terrance: 0.92 Peak PV Grad: 3.00 Updated in Other Vendor System with Status of Final Barry Gilliam MD electronically signed on 09/12/2022 4:00:55 PM with status of Final
[2022-09-12 07:05] LABS: Troponin-I High Sensitivity 5.6 ng/L (<3.5-17.0)
[2022-09-12 07:08] VITALS: BP 116/66; PULSE 63; RESP 20; TEMP 36.8; O2SAT 96
--- NOTE | 2022-09-12 07:11 | PHA.MEDREC ---
Pharmacy Consult ? Medication Reconciliation Pharmacy has completed the medication reconciliation. Reviewed med rec done by nursing (Sara).
[2022-09-12 07:28] LABS: PTT Heparin Drip 194.7 SEC (53-77.9)
--- NOTE | 2022-09-12 09:14 | MHC.CM.PN ---
CM ATTEMPTED TO MEET W/PT HOWEVER PT HAVING ECCHO, CM WILL REVISIT.
[2022-09-12 09:18] LABS: PTT Heparin Drip 80.6 SEC (53-77.9)
[2022-09-12 11:09] VITALS: BP 124/70; PULSE 74; RESP 20; TEMP 36.2; O2SAT 96
--- NOTE | 2022-09-12 12:23 | P.CONCA_ITS ---
History of Present Illness History of Present Illness Date of Service: 09/12/22 Requesting physician: Cari Phillips Chief complaint: unstable angina Narrative: 72 female with known CAD and history of ST-elevation SC when she had occluded circumflex which was treated with drug-eluting stent. She had complete heart block at that time and had permanent pacemaker placement later on. She had [id number] LV dysfunction after that with EF 30-40%. She is saying that her heart function recovered after that. She also had 65% LAD stenosis at that time and plan was to treat her in case she develops any symptoms. She is presenting to [facility] with sudden onset chest tightness. This happened yesterday while she was sitting down watching television. She is saying she has not had any symptoms in the preceding days. With these symptoms she presented to [facility] and was felt to have unstable angina and was started on heparin drip. She is saying since then she has not had any further symptoms. Her troponins are negative. EKG is paced. Clinically not in heart failure. [facility] Past Medical History Medical History Adrenal nodule Coronary artery disease History of complete heart block History of pacemaker History of ST elevation myocardial infarction (STEMI) Hypertension Ischemic cardiomyopathy Family History Family History Mother No problems noted. Father No problems noted. Surgical History Surgical History History of coronary artery stent placement Social History Social History Household Members: Spouse Housing: House Do you presently have visiting nurse or other home services: No Alcohol intake: former Patient Tobacco Use Status: Former Tobacco user Quit Date: 05/17/20 Tobacco use type: Cigarette Cigarette Packs Per Day: 0.25 Second Hand Smoke Exposure: No Meds Allergies Allergy/AdvReac Type Severity Reaction Status Date / Time No Known Allergies Allergy Mild N/A Verified 09/11/22 18:26 Active Medications: Current Medications Acetaminophen (Acetaminophen 325 Mg Tablet) 650 mg PO Q6H PRN PRN Reason: Pain, Mild (Pain Scale 1-3) Aspirin (Aspirin Enteric Coated 81 Mg Tablet.Dr) 81 mg PO DAILY [facility] Atorvastatin Calcium (Atorvastatin Calcium 80 Mg Tablet) 80 mg PO BEDTIME [facility] Carvedilol (Carvedilol 3.125 Mg Tablet) 3.125 mg PO BID [facility]; Protocol Docusate Sodium (Docusate Sodium 100 Mg Capsule) 100 mg PO DAILY PRN PRN Reason: Constipation Heparin Sodium (Porcine) (Heparin Sodium,Porcine 5,000 Unit/Ml Vial) 3,200 unit 40 unit/kg (3200 unit) IVPUSH PROTOCOL BOLUS PRN; Protocol PRN Reason: 40 unit/kg - Heparin Protocol Heparin Sodium (Porcine) (Heparin Sodium,Porcine 5,000 Unit/Ml Vial) 6,400 unit 80 unit/kg (6400 unit) IVPUSH PROTOCOL BOLUS PRN; Protocol PRN Reason: 80 unit/kg - Heparin Protocol Heparin Sodium/Sodium Chloride (Heparin Sodium,Porcine/1/2ns) 25,000 unit in 250 mls @ 0 mls/hr IVCONT .Q0M [facility]; Protocol Last Titration: 09/12/22 09:34 Dose: 10 units/kg/hr, 8.02 mls/hr Ondansetron HCl (Ondansetron Hcl 4 Mg/2 Ml Vial) 4 mg IVPUSH Q8H PRN PRN Reason: Nausea and Vomiting Pharmacy Consult (Consult Rx Perform Med Rec) 1 each MISCELLANE ONCE PRN PRN Reason: Consult order Sodium Chloride (0.9 % Sodium Chloride Flush 3 Ml Syringe) [facility] Last Admin: 09/12/22 09:13 Dose: Not Given Home Medications Medication Instructions Recorded Confirmed Last Taken Type aspirin 81 mg tablet,delayed 81 mg PO DAILY 05/30/20 09/11/22 09/11/22 08:00 History release (Adult Low Dose Aspirin) atorvastatin 80 mg tablet 80 mg PO BEDTIME 05/30/20 09/11/22 09/10/22 20:00 History carvedilol 3.125 mg tablet 3.125 mg PO BID 12/27/21 09/11/22 09/11/22 08:00 History Physical Exam Vital Signs: Vital Signs: Last Vital Signs Temp 97.1 F 09/12/22 11:09 Pulse 74 09/12/22 11:09 Resp 20 09/12/22 11:09 BP 124/70 09/12/22 11:09 Pulse Ox 96 09/12/22 11:09 O2 Del Method Room Air 09/12/22 11:09 BMI result Body Mass Index 30.3 GENERAL APPEARANCE: in no acute distress, pleasant. NECK: no carotid bruit, no jugular venous distention. SKIN: no suspicious lesions, warm and dry. HEART: no murmurs, regular rate and rhythm. LUNGS: clear to auscultation bilaterally. ABDOMEN: soft, nontender. EXTREMITIES: no edema. PERIPHERAL PULSES: equal. NEUROLOGIC: No gross deficits, AAO X 3 Objective Labs and Meds 09/12/22 05:57 09/12/22 05:57 Lab results: Laboratory Results - last 24 hr 09/11/22 09/11/22 09/11/22 19:23 19:23 19:23 WBC 6.9 RBC 4.77 Hgb 13.1 Hct 41.1 MCV 86.2 MCH 27.5 MCHC 31.9 RDW 14.4 Plt Count 184 MPV 11.0 Immature Gran % (Auto) 0.6 H Neut % (Auto) 64.2 Lymph % (Auto) 22.1 [place] % (Auto) 9.1 Eos % (Auto) 2.7 Baso % (Auto) 1.3 Lymph # (Auto) 1.5 [place] # (Auto) 0.6 Eos # (Auto) 0.2 Baso # (Auto) 0.1 Abs Immat Gran (auto) 0.04 H Absolute Neuts (auto) 4.4 Absolute Nucleated RBC 0.000 Nucleated RBC % (auto) 0.0 Smear Tech's Comments VERIFIED PT INR APTT aPTT Heparin Protocol Sodium 139 Potassium 5.1 Chloride 110 H Carbon Dioxide 24 Anion Gap 10 L BUN 12 Creatinine 0.83 Estim Creat Clear Calc 60.4 Estimated GFR > 60 Random Glucose 121 H Calcium 8.6 Magnesium 2.2 Total Bilirubin 0.4 Direct Bilirubin 0.1 AST 27 ALT 15 Alkaline Phosphatase 78 Troponin I High Sens < 2.7 Total Protein 6.7 Albumin 3.3 L 09/11/22 09/11/22 09/11/22 21:14 21:14 21:14 WBC 9.3 RBC 4.71 Hgb 13.1 Hct 41.0 MCV 87.0 MCH 27.8 MCHC 32.0 RDW 14.4 Plt Count 210 MPV 10.3 Immature Gran % (Auto) Neut % (Auto) Lymph % (Auto) [place] % (Auto) Eos % (Auto) Baso % (Auto) Lymph # (Auto) [place] # (Auto) Eos # (Auto) Baso # (Auto) Abs Immat Gran (auto) Absolute Neuts (auto) Absolute Nucleated RBC 0.000 Nucleated RBC % (auto) 0.0 Smear Tech's Comments PT 11.9 INR 1.0 APTT aPTT Heparin Protocol 30.9 L Sodium Potassium Chloride Carbon Dioxide Anion Gap BUN Creatinine Estim Creat Clear Calc Estimated GFR Random Glucose Calcium Magnesium Total Bilirubin Direct Bilirubin AST ALT Alkaline Phosphatase Troponin I High Sens 9.1 D Total Protein Albumin 09/11/22 09/12/22 09/12/22 Unknown 05:57 05:57 WBC 9.1 RBC 4.60 Hgb 12.6 Hct 40.0 MCV 87.0 MCH 27.4 MCHC 31.5 RDW 14.6 Plt Count 210 MPV 11.5 Immature Gran % (Auto) 0.4 Neut % (Auto) 71.3 Lymph % (Auto) 17.7 L [place] % (Auto) 8.3 Eos % (Auto) 1.7 Baso % (Auto) 0.6 Lymph # (Auto) 1.6 [place] # (Auto) 0.8 Eos # (Auto) 0.2 Baso # (Auto) 0.1 Abs Immat Gran (auto) 0.04 H Absolute Neuts (auto) 6.5 Absolute Nucleated RBC 0.000 Nucleated RBC % (auto) 0.0 Smear Tech's Comments PT Cancelled INR Cancelled APTT Cancelled aPTT Heparin Protocol Sodium 138 Potassium 4.4 Chloride 108 Carbon Dioxide 25 Anion Gap 9 L BUN 12 Creatinine 0.79 Estim Creat Clear Calc 64.0 Estimated GFR > 60 Random Glucose 101 Calcium 8.7 Magnesium Total Bilirubin Direct Bilirubin AST ALT Alkaline Phosphatase Troponin I High Sens Total Protein Albumin 09/12/22 09/12/22 09/12/22 05:57 05:57 05:57 WBC RBC Hgb Hct MCV MCH MCHC RDW Plt Count MPV Immature Gran % (Auto) Neut % (Auto) Lymph % (Auto) [place] % (Auto) Eos % (Auto) Baso % (Auto) Lymph # (Auto) [place] # (Auto) Eos # (Auto) Baso # (Auto) Abs Immat Gran (auto) Absolute Neuts (auto) Absolute Nucleated RBC Nucleated RBC % (auto) Smear Tech's Comments PT 12.6 INR 1.1 APTT aPTT Heparin Protocol 194.7 H* D Sodium Potassium Chloride Carbon Dioxide Anion Gap BUN Creatinine Estim Creat Clear Calc Estimated GFR Random Glucose Calcium Magnesium Total Bilirubin Direct Bilirubin AST ALT Alkaline Phosphatase Troponin I High Sens 5.6 Total Protein Albumin 09/12/22 09:01 WBC RBC Hgb Hct MCV MCH MCHC RDW Plt Count MPV Immature Gran % (Auto) Neut % (Auto) Lymph % (Auto) [place] % (Auto) Eos % (Auto) Baso % (Auto) Lymph # (Auto) [place] # (Auto) Eos # (Auto) Baso # (Auto) Abs Immat Gran (auto) Absolute Neuts (auto) Absolute Nucleated RBC Nucleated RBC % (auto) Smear Tech's Comments PT INR APTT aPTT Heparin Protocol 80.6 H D Sodium Potassium Chloride Carbon Dioxide Anion Gap BUN Creatinine Estim Creat Clear Calc Estimated GFR Random Glucose Calcium Magnesium Total Bilirubin Direct Bilirubin AST ALT Alkaline Phosphatase Troponin I High Sens Total Protein Albumin Imaging Radiologist's impression: Impressions Chest X-Ray 09/11/22 18:48 IMPRESSION: Asymmetric focal haziness in the left lower lung that could be related with pneumonia in the appropriate clinical context. Recommend a follow-up imaging after treatment. Assessment and Plan (1) Unstable angina: Status: Acute Plan Pleasant 72-year-old female with known history of coronary disease with previous circumflex PCI for ST elevation SC and complete heart block requiring permanent pacemaker placement presenting for chest discomfort and unstable angina. She had residual disease in the LAD and it is possible that has progressed. Blood pressure control is good. Continue aspirin and heparin drip. Will not load her with Plavix or ticagrelor currently in case there is surgical intervention required. I have discussed the case at [facility] and she has accepted by Hospital [facility] and will be transferred today. Potential catheterization on Thursday. Thank you for allowing me to participate in the care of your patient. Please feel free to contact me if you have any questions. Time Spent With Patient Time: Total time managing care of this patient today ____ minutes. Procedures Date of Service Date of Service: 09/12/22
--- NOTE | 2022-09-12 12:43 | PM.DS ---
DS: Providers Provider Date of Service: 09/12/22 Date of admission: 09/11/22 21:56 Primary care physician: Nathan Orr MD Consults: 09/11/22 21:56 Consult to Cardiology Routine Consulting Provider: [facility] Cardiovascular Services Reason for consultation: unstable angina DS: Diagnosis Discharge Diagnosis (1) Unstable angina: Status: Acute DS: Summary Hospital Course Hospital Course: History of presenting illness Date of Service: 09/11/22 Attending physician on admission: German Maza Chief Complaint: chest pain 72-year-old female with history of coronary artery disease with h/o posterior STEMI s/p POBA and IDALIA to LCx, h/o complete heart block s/p pacemaker, ischemic cardiomyopathy, htn, and former smoker with 40+ pack year history who quit 2 years ago presents to the ED earlier to day for evaluation of chest pain which started about 1 hour prior to arrival. Pain was retrosternal in nature rated 9/10 described as burning and squeezing without any radiation. Pain at rest and with exertion. Associated symptoms included some nausea and lightheadedness. No diaphoresis, sob, syncope, vomiting, cough, fever, chills. On arrival, pt hypertensive to 194/86, vitals otherwise stable. No leukocytosis or anemia. Renal function normal, electrolytes normal. Initial troponin undetectable, repeat 9.1.? CXR shows asymmetric focal haziness in the left lower lung, otherwise negative for any acute abnormality.? EKG shows atrial sensed ventricular paced rhythm with occasional PVCs, rate 85.? In the ED, given the 243 mg aspirin and nitro tab with full resolution of chest pain and improvement in blood pressure to 146/83.? Patient started on heparin drip per protocol for management unstable angina to be admitted for further management. Hospital course: 72-year-old female with known history of coronary artery disease with previous circumflex PCI for ST-elevation [place] and complete heart block requiring permanent pacemaker, presented to [facility] for symptoms of chest discomfort, nausea,LH, while watching TV, relieved with sublingual nitro and aspirin, EKG showed paced rhythm and no acute ischemic changes, normal troponin, due to prior residual disease in the LAD with concern of progression, therefore cigarette filter inspector recommend transfer to [facility] for cardiac catheterization, will continue aspirin, statin, beta-blockers, and heparin drip, currently has stable blood pressure, no evidence of CHF, no arrhythmia, patient did not receive Plavix or ticagrelor for concern for surgical intervention. Time Spent with Patient Time attestation: Total time managing care of this patient today ____ minutes. Discharge coordination time: Greater than 30 minutes Quality: Safe Use of Opioids Does Pt have an Active Cancer Diagnosis on the Problem List?: No Quality: Stroke Does the patient have a stroke diagnosis?: No Physical Exam Vital Signs: Vital Signs: Last Vital Signs Temp 97.1 F 09/12/22 11:09 Pulse 74 09/12/22 11:09 Resp 20 09/12/22 11:09 BP 124/70 09/12/22 11:09 Pulse Ox 96 09/12/22 11:09 O2 Del Method Room Air 09/12/22 11:09 BMI result Body Mass Index 30.3 Const: Other: GENERAL APPEARANCE: in no acute distress, pleasant. NECK: no carotid bruit, no jugular venous distention. SKIN: no suspicious lesions, warm and dry. HEART: no murmurs, regular rate and rhythm. LUNGS: clear to auscultation bilaterally. ABDOMEN: soft, nontender. EXTREMITIES: no edema. PERIPHERAL PULSES: equal. NEUROLOGIC: No gross deficits, AAO X 3 DS: Data Data Completed and Pending Labs on day of discharge: Laboratory Results - last 24 hr 09/11/22 09/11/22 09/11/22 19:23 19:23 19:23 WBC 6.9 RBC 4.77 Hgb 13.1 Hct 41.1 MCV 86.2 MCH 27.5 MCHC 31.9 RDW 14.4 Plt Count 184 MPV 11.0 Immature Gran % (Auto) 0.6 H Neut % (Auto) 64.2 Lymph % (Auto) 22.1 [place] % (Auto) 9.1 Eos % (Auto) 2.7 Baso % (Auto) 1.3 Lymph # (Auto) 1.5 [place] # (Auto) 0.6 Eos # (Auto) 0.2 Baso # (Auto) 0.1 Abs Immat Gran (auto) 0.04 H Absolute Neuts (auto) 4.4 Absolute Nucleated RBC 0.000 Nucleated RBC % (auto) 0.0 Smear Tech's Comments VERIFIED PT INR APTT aPTT Heparin Protocol Sodium 139 Potassium 5.1 Chloride 110 H Carbon Dioxide 24 Anion Gap 10 L BUN 12 Creatinine 0.83 Estim Creat Clear Calc 60.4 Estimated GFR > 60 Random Glucose 121 H Calcium 8.6 Magnesium 2.2 Total Bilirubin 0.4 Direct Bilirubin 0.1 AST 27 ALT 15 Alkaline Phosphatase 78 Troponin I High Sens < 2.7 Total Protein 6.7 Albumin 3.3 L 09/11/22 09/11/22 09/11/22 21:14 21:14 21:14 WBC 9.3 RBC 4.71 Hgb 13.1 Hct 41.0 MCV 87.0 MCH 27.8 MCHC 32.0 RDW 14.4 Plt Count 210 MPV 10.3 Immature Gran % (Auto) Neut % (Auto) Lymph % (Auto) [place] % (Auto) Eos % (Auto) Baso % (Auto) Lymph # (Auto) [place] # (Auto) Eos # (Auto) Baso # (Auto) Abs Immat Gran (auto) Absolute Neuts (auto) Absolute Nucleated RBC 0.000 Nucleated RBC % (auto) 0.0 Smear Tech's Comments PT 11.9 INR 1.0 APTT aPTT Heparin Protocol 30.9 L Sodium Potassium Chloride Carbon Dioxide Anion Gap BUN Creatinine Estim Creat Clear Calc Estimated GFR Random Glucose Calcium Magnesium Total Bilirubin Direct Bilirubin AST ALT Alkaline Phosphatase Troponin I High Sens 9.1 D Total Protein Albumin 09/11/22 09/12/22 09/12/22 Unknown 05:57 05:57 WBC 9.1 RBC 4.60 Hgb 12.6 Hct 40.0 MCV 87.0 MCH 27.4 MCHC 31.5 RDW 14.6 Plt Count 210 MPV 11.5 Immature Gran % (Auto) 0.4 Neut % (Auto) 71.3 Lymph % (Auto) 17.7 L [place] % (Auto) 8.3 Eos % (Auto) 1.7 Baso % (Auto) 0.6 Lymph # (Auto) 1.6 [place] # (Auto) 0.8 Eos # (Auto) 0.2 Baso # (Auto) 0.1 Abs Immat Gran (auto) 0.04 H Absolute Neuts (auto) 6.5 Absolute Nucleated RBC 0.000 Nucleated RBC % (auto) 0.0 Smear Tech's Comments PT Cancelled INR Cancelled APTT Cancelled aPTT Heparin Protocol Sodium 138 Potassium 4.4 Chloride 108 Carbon Dioxide 25 Anion Gap 9 L BUN 12 Creatinine 0.79 Estim Creat Clear Calc 64.0 Estimated GFR > 60 Random Glucose 101 Calcium 8.7 Magnesium Total Bilirubin Direct Bilirubin AST ALT Alkaline Phosphatase Troponin I High Sens Total Protein Albumin 09/12/22 09/12/22 09/12/22 05:57 05:57 05:57 WBC RBC Hgb Hct MCV MCH MCHC RDW Plt Count MPV Immature Gran % (Auto) Neut % (Auto) Lymph % (Auto) [place] % (Auto) Eos % (Auto) Baso % (Auto) Lymph # (Auto) [place] # (Auto) Eos # (Auto) Baso # (Auto) Abs Immat Gran (auto) Absolute Neuts (auto) Absolute Nucleated RBC Nucleated RBC % (auto) Smear Tech's Comments PT 12.6 INR 1.1 APTT aPTT Heparin Protocol 194.7 H* D Sodium Potassium Chloride Carbon Dioxide Anion Gap BUN Creatinine Estim Creat Clear Calc Estimated GFR Random Glucose Calcium Magnesium Total Bilirubin Direct Bilirubin AST ALT Alkaline Phosphatase Troponin I High Sens 5.6 Total Protein Albumin 09/12/22 09:01 WBC RBC Hgb Hct MCV MCH MCHC RDW Plt Count MPV Immature Gran % (Auto) Neut % (Auto) Lymph % (Auto) [place] % (Auto) Eos % (Auto) Baso % (Auto) Lymph # (Auto) [place] # (Auto) Eos # (Auto) Baso # (Auto) Abs Immat Gran (auto) Absolute Neuts (auto) Absolute Nucleated RBC Nucleated RBC % (auto) Smear Tech's Comments PT INR APTT aPTT Heparin Protocol 80.6 H D Sodium Potassium Chloride Carbon Dioxide Anion Gap BUN Creatinine Estim Creat Clear Calc Estimated GFR Random Glucose Calcium Magnesium Total Bilirubin Direct Bilirubin AST ALT Alkaline Phosphatase Troponin I High Sens Total Protein Albumin Discharge Plan Discharge Anticipated Discharge Date/Time: 09/12/22 12:38 Patient Disposition: Xfer Acute Care Hospital Discharge Diagnosis: Unstable angina Referrals: Nathan Orr MD [Primary Care Provider] - 1 Week Discharge Medications: New heparin(porcine) in 0.45% NaCl 25,000 unit/250 mL Parenteral Solution 25,000 unit continuous IV infusion .Q0M Qty: 1 0RF Continued atorvastatin 80 mg tablet 80 mg PO BEDTIME aspirin [Adult Low Dose Aspirin] 81 mg tablet,delayed release (DR/EC) 81 mg PO DAILY carvedilol 3.125 mg tablet 3.125 mg PO BID Discharge Orders: Discharge Order (Routine); Ordered 09/12/22 Ordered By: Cari Phillips Diet: Low fat, low cholesterol Activity on Discharge: As tolerated Stand Alone Forms: Patient Portal Discharge page Care Plan Goals: Unstable angina continue IV heparin aspirin statins and beta blockers possible cardiac catheterization on Thursday Monitor PTT Health Concerns: Coronary artery disease Plan of Treatment: Follow-up with primary care physician and cigarette filter inspector Assessment: As above
[2022-09-12 14:20] LABS: COVID-19 Test Negative (Negative); IDNOW Serial# 55D5AD1C
--- NOTE | 2022-09-12 14:49 | MHC.CM.PN ---
IMM 09/12/22, CM MET W/PT WHO REPORTS SHE LIVES W/HER [place] AND SON HAS BEEN STAYING W/PT, PT REPORTS SHE IS INDEP W/ALL CARE, DENIES USE OF DME /SERVICES AND DECLINES NEED FOR HOME SERVICES. PT VERIFIES LORENE LEMUS IS HER PCP, NILE ADDISON AND PT EDUCATED ON AND DECLINES TO COMPLETE A HCP. DCP: ACUTE CARE TXFR TO [facility]
[2022-09-12 15:50] LABS: PTT Heparin Drip 60.7 SEC (53-77.9)
--- NOTE | 2022-09-12 16:22 | PC.NURSE ---
results ptt-hd 60.7 called to RN at [facility]
== END 2022-09-12 15:35 | disposition short-term general hospital (02) | DRG 303 ==
LOC: HO.ED 21:13 → HO.EDOVER 22:03 → HO.IMC 09-12 03:14
PROVIDERS: Physician Assistant Medical; Admitting Provider Physician Assistant; Emergency Provider Emergency Medicine; PCP Internal Medicine; Visit Provider Hospitalist
DX: I25.110 Atherosclerotic heart disease of native coronary artery with unstable angina pectoris (principal); I44.2 Atrioventricular block, complete; I25.5 Ischemic cardiomyopathy; I10 Essential (primary) hypertension; Z20.822 Contact with and (suspected) exposure to COVID-19; Z95.0 Presence of cardiac pacemaker; Z95.5 Presence of coronary angioplasty implant and graft; I25.2 Old myocardial infarction; Z87.891 Personal history of nicotine dependence
CPT/HCPCS: 36415; 71045; 80048; 80076; 83735; 84484; 85025; 85027; 85610; 85730; 87635; 93005; 93306; 99285; J1643

== ENCOUNTER 2022-09-11 21:56 | Outpatient (BNV) | payer MEDICARE, SELFPAY ==
[2020-08-03 13:18] VITALS: BP 102/64; BP 110/62
[2020-11-01 09:03] VITALS: BP 108/50
== END 2022-09-12 07:00 ==
PROVIDERS: Admitting Provider Physician Assistant; Emergency Provider Emergency Medicine; PCP Internal Medicine; Visit Provider Internal Medicine Cardiovascular Disease
DX: I20.0 Unstable angina (principal)
CPT/HCPCS: 93306

== ENCOUNTER → 2022-09-11 21:56 | Outpatient (BNV) | payer MEDICARE, SELFPAY ==
[2020-08-03 13:18] VITALS: BP 102/64; BP 110/62
[2020-11-01 09:03] VITALS: BP 108/50
== END ==
PROVIDERS: Admitting Provider Physician Assistant; Emergency Provider Emergency Medicine; PCP Internal Medicine; Visit Provider Physician Assistant
DX: I20.0 Unstable angina (principal)
CPT/HCPCS: 99223; 99239

== ENCOUNTER → 2022-09-11 21:56 | Outpatient (BNV) | payer MEDICARE, SELFPAY | PROVIDERS: Admitting Provider Physician Assistant; Emergency Provider Emergency Medicine; PCP Internal Medicine; Visit Provider Internal Medicine Cardiovascular Disease | DX: I49.3 Ventricular premature depolarization (principal); R94.31 Abnormal electrocardiogram [ECG] [EKG] | CPT/HCPCS: 93010; 99223 ==

== ENCOUNTER 2022-12-15 07:39 | Outpatient (REF) | payer MEDICARE, SELFPAY ==
[2022-12-15 09:00] LABS: Alanine Aminotransferase 15 U/L (0-31); Aspartate Amino Transferase 20 U/L (5-31); Cholesterol 97 mg/dL (<200); HDL Cholesterol 44 mg/dL (>40); LDL Cholesterol Calculated 40 mg/dL (<100); Triglycerides 69 mg/dL (<150)
== END 2022-12-15 07:40 | disposition home or self-care (01) ==
LOC: HO.LAB 07:39
PROVIDERS: PCP Internal Medicine; Visit Provider Internal Medicine Cardiovascular Disease
DX: I21.9 Acute myocardial infarction, unspecified (principal)
CPT/HCPCS: 36415; 80061; 84450; 84460

== ENCOUNTER → 2023-03-10 10:20 | Outpatient (REF) | payer MEDICARE, SELFPAY ==
--- NOTE | 2023-03-10 10:24 | CA_ITS ---
Transthoracic Echocardiogram Patient (Last, First, Middle): Lisa Trinidad, Gender: Female Date of : 1950 Age: 72 Procedure Date: 03/10/2023 Procedure Type: Transthoracic Echocardiogram Location: OP Height: 162.56 cm Weight: 75.75 kg BSA: 1.81 m2 Heart Rate: bpm BP: 110 / 74 mmHg Drawing In Machine Tender: CHERYLE Referring MD: Edson Mayes MD Symptoms: I21.9 ACUTE MYOCARDIAL INFARCTION Study Quality: Adequate Conclusions: - The left ventricular systolic function is mildly decreased. The calculated ejection fraction is 46% by biplane method. - The basal inferior and basal inferoseptal segments are akinetic. - The inferolateral wall is hypokinetic. - No obvious valvular pathology seen on this study. - There is mild dilatation of the ascending aorta measuring 3.90 cm. Findings Left Ventricle Normal left ventricular cavity size. There is mildly increased left ventricular wall thickness. The left ventricular systolic function is mildly decreased. The calculated ejection fraction is 46% by biplane method. Evidence suggests grade I (mild) diastolic dysfunction. LV peak GLS -13.5%. Wall Motion Rest Echo Findings The inferolateral wall is hypokinetic. The basal inferior and basal inferoseptal segments are akinetic. Right Ventricle Normal right ventricular cavity size and systolic function. There is a pacemaker wire seen in the right ventricle. Atria Both atria are normal in size. Aortic Valve There is a normal trileaflet aortic valve. There is no aortic valve stenosis. There is trace (trivial) aortic valve regurgitation. Mitral Valve The mitral valve appears normal. There is mild mitral valve regurgitation. There is no mitral valve stenosis. Pulmonic Valve The pulmonic valve is likely normal. Tricuspid Valve Normal tricuspid valve structure. There is mild tricuspid valve regurgitation. There is no evidence of pulmonary hypertension. Great Vessels There is mild dilatation of the ascending aorta measuring 3.90 cm. Small plaque is seen in the sino tubular ridge. Venous The inferior vena cava is normal in size and collapses greater than 50% with inspiration. Pericardium/Pleural There is no evidence of pericardial effusion. Prior Study Comparison No significant change compared to prior study dated: 09/12/2022. (images reviewed). Recommendations, Care & Conclusions No obvious valvular pathology seen on this study. Measurements 2D Linear Measurements IVSd: 1.37 0.6-0.9/0.6-1.0 cm LVIDd: 4.40 3.9-5.3/4.2-5.9 cm LVIDd Index: 2.43 2.4-3.2/2.2-3.1 cm/m2 LVIDs: 3.62 2.0-3.6 cm LVPWd: 1.17 0.7-1.1 cm LA Diam: 3.70 2.7-3.8/3.0-4.0 cm LAIDs Index: 2.04 1.5-2.3 cm/m2 LV Mass: 259.03 67-162/88-224 g LV Mass Index: 143.11 43-95/49-115 g/m2 LVOT Diam: 2.20 3.0+(-)1.3 cm 2D Systolic Function EF 4C: 41.00 >55% EF 2C: 55.50 >55% EF BiP: 46.40 >55% Mitral Valve MV Pk E: 0.45 MV PK A: 0.99 MV Decel Time: 362.00 E/A: 0.50 E'Lateral: 3.48 E'Medial: 2.83 E/E' Med: 15.90 E/E' Lat: 12.90 PHT: 106.00 MVA PHT: 2.08 Decel [place]: 1.24 Aortic Valve AoV Pk Terrance: 1.26 AoV Mn Terrance: 0.84 AoV VTI: 0.24 AoV Pk Grad: 6.00 Aov Mn Grad: 3.00 RUBEN Cont.VTI: 3.08 LVOT LVOT Pk Terrance: 1.02 LVOT Mn Terrance: 0.58 LVOT VTI: 0.20 LVOT Pk Grad: 4.00 LVOT Mn Grad: 2.00 LVOT Diam: 2.20 LVOT Area: 3.80 Diastolic Function MV Pk E: 0.45 MV Pk A: 0.99 E/A: 0.50 E'Medial: 2.83 E/E' Med: 15.90 E' Laterial: 3.48 E/E' Lat: 12.90 Right Ventricle TAPSE (mm): 21.20 TVS' Terrance: 13.30 Tricuspid Valve TR Pk Terrance: 2.34 TR Pk Grad: 22.00 RA Press: 3.00 RVSP: 25.00 Great Vessels Aorta Sinus of Valsalva: 3.34 2.0-3.[address] [place]: 2.71 1.7-3.4 cm Ao Asc: 3.90 2.1-3.4 cm Updated in Other Vendor System with Status of Final Isaac Regan MD electronically signed on 03/12/2023 12:58:06 PM with status of Final
== END ==
LOC: HO.CARD 10:20
PROVIDERS: PCP Internal Medicine; Visit Provider Internal Medicine Cardiovascular Disease
DX: I21.9 Acute myocardial infarction, unspecified (principal)
CPT/HCPCS: 93306; 93356

== ENCOUNTER → 2023-03-10 10:24 | Outpatient (BNV) | payer MEDICARE, SELFPAY | PROVIDERS: PCP Internal Medicine; Visit Provider Internal Medicine | DX: I21.9 Acute myocardial infarction, unspecified (principal); I34.0 Nonrheumatic mitral (valve) insufficiency; I36.1 Nonrheumatic tricuspid (valve) insufficiency | CPT/HCPCS: 93306 ==

== ENCOUNTER 2023-12-04 10:12 | Outpatient (REF) | payer MEDICARE, SELFPAY ==
[2023-12-04 11:43] LABS: Cholesterol 133 mg/dL (<200); HDL Cholesterol 46 mg/dL (>40); LDL Cholesterol Calculated 66 mg/dL (<100); Triglycerides 109 mg/dL (<150)
== END 2023-12-04 10:13 | disposition home or self-care (01) ==
LOC: HO.LAB 10:12
PROVIDERS: PCP Internal Medicine; Visit Provider Internal Medicine Cardiovascular Disease
DX: I21.3 ST elevation (STEMI) myocardial infarction of unspecified site (principal)
CPT/HCPCS: 36415; 80061

== ENCOUNTER 2024-03-17 10:14 | Emergency (ER) | payer MEDICARE, SELFPAY ==
--- NOTE | ~2024-03-17 | CT_ITS ---
EXAMINATION: CT LUMBAR SPINE WITHOUT CONTRAST CLINICAL INFORMATION: Fall, 10 days prior, lumbar pain. COMPARISON: None. Correlation made with CT abdomen and pelvis 11/30/2021. TECHNIQUE: Spiral CT examination of the lumbar spine was performed in axial plane without contrast. Sagittal, coronal, and thin section axial reformatted images were constructed from the axial data set. This CT examination was performed using dose optimization techniques as appropriate, variously including the following: *Automated exposure control *Adjustment of mA and/or kV according to patient size (this includes techniques or standardized protocols for targeted exams where dose is matched to indication/reason for exam; i.e. extremities or head) *Use of iterative reconstruction technique FINDINGS: There is osteopenia diffusely. No significant scoliosis. Normal lordosis. There is an acute superior endplate compression fracture of L1, with approximately 20% loss of height superiorly, and no retropulsion of bone. There is no extension into the pedicles or posterior elements. This is a stable fracture. There are no additional acute fractures identified. There are no old compression deformities. There is a grade 2, 1.4 cm spondylolisthesis L5-S1. Mild disc degeneration present T11-12 and T12-L1. Severe disc degeneration L5-S1. Facets are normally aligned. Mild degenerative facet arthrosis present L4-5 with more significant arthrosis L5-S1 with full-thickness pars defects. 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 There is no evidence of central canal stenosis or large disc herniation. No evidence of epidural hematoma. Severe bilateral neural foraminal encroachment L5-S1. Sacrum appears intact. SI joints appear intact with mild degenerative changes. Soft tissue evaluation is somewhat limited from respiratory motion degradation. Severe atheromatous calcification of the abdominal aorta and iliac vessels, and its branches, with associated aortic ectasia measuring up to 2.7 cm diameter infrarenally. No definite aneurysm seen. Calcifications in both renal collecting systems are felt to be vascular in origin. No hydronephrosis. There is a moderate-sized type I hiatus hernia. There are coronary calcifications. Lung bases demonstrate mild dependent changes but are otherwise clear. There is underlying emphysema suspected. There is bilateral adrenal hyperplasia. CT/CT lumbar spine wo IV con IMPRESSION: 1. Acute superior endplate L1 compression fracture with approximate 20% loss of height. No retropulsion of bone. No extension into the posterior elements. This is a stable fracture. No hematoma. 2. No additional acute fractures or compression deformities. 3. Grade 2 spondylolisthesis L5-S1. 4. Osteopenia diffusely. Degenerative spondylosis as described. 5. Severe atheromatous disease of the aorta, and its branches. 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 Electronically signed by: Horace Elise MD 03/17/2024 11:57 AM [facility]
--- NOTE | ~2024-03-17 | CT_ITS ---
EXAMINATION: CT HEAD WITHOUT CONTRAST CLINICAL INFORMATION: Fall 2009 days ago. Pain. COMPARISON: CT brain 11/30/2021 TECHNIQUE: Contiguous axial imaging was performed from the skull base to vertex without intravenous administration of contrast. This CT examination was performed using dose optimization techniques as appropriate, variously including the following: *Automated exposure control *Adjustment of mA and/or kV according to patient size (this includes techniques or standardized protocols for targeted exams where dose is matched to indication/reason for exam; i.e. extremities or head) *Use of iterative reconstruction technique DLP: 1619 mGy/cm. FINDINGS: There is no acute intra-axial, extra-axial bleed, masses or midline shift. There is no acute infarction evolution. There is no edema. The centeno to white matter differentiation is maintained normal. The lateral ventricles are symmetrical in size and configuration without enlargement. Bone windows reveal no calvarial abnormality. No scalp soft tissue abnormality. Bilateral paranasal sinuses and mastoid air cells are well-aerated. CT/CT head/brain wo IV con IMPRESSION: No acute intracranial process seen. No major change since 11/30/2021 Electronically signed by: Barrington Sorensen MD 03/17/2024 11:37 AM EST
--- NOTE | ~2024-03-17 | CT_ITS ---
EXAMINATION: CT CERVICAL SPINE WITHOUT CONTRAST CLINICAL INFORMATION: Fall 10 days ago, pain COMPARISON: None available. TECHNIQUE: 3 minutes thin axial and reformatted 2 mm thin sagittal and coronal images of cervical spine were obtained without contrast. This CT examination was performed using dose optimization techniques as appropriate, variously including the following: *Automated exposure control *Adjustment of mA and/or kV according to patient size (this includes techniques or standardized protocols for targeted exams where dose is matched to indication/reason for exam; i.e. extremities or head) *Use of iterative reconstruction technique DLP: 1619 mGy/cm. FINDINGS: There is normal cervical lordosis. The vertebral heights and alignment are normal. There is mild posterior spondylosis C3-4 and C6-C7 levels. Mild loss of C6-C7 disc height is noted. Rest of the disc heights are normal. The craniovertebral junction and the C1-C2 alignment is normal. There is mild loss of C3-4 C4-5 bilateral C5-6 and left 6-7 neural foraminal narrowing from uncovertebral hypertrophic changes. No visible acute fracture, dislocation or lytic process seen. The the prevertebral and paravertebral soft tissues are normal. The tracheal airway appears widely patent. Visualized bilateral mastoid sinuses are clear. No abnormal sized neck mass or lymphadenopathy. There is mild asymmetry of thyroid lobes but not enlarged. The lung apices are clear Normal CT/CT cervical spine wo IV con IMPRESSION: Mild degenerative disc changes C6-C7 disc levels with posterior spondylosis C3-4 and C6-C7 disc levels Fleischner guidelines were followed. Electronically signed by: Barrington Sorensen MD 03/17/2024 11:54 AM [facility]
[2024-03-17 10:21] VITALS: BP 160/90; PULSE 88; O2SAT 97
[2024-03-17 10:25] VITALS: BP 137/81; PULSE 98; RESP 14; TEMP 36.7; O2SAT 97; BMI 27.6
--- NOTE | 2024-03-17 10:28 | ECG_ITS ---
Test Reason : FALL Blood Pressure : */* mmHG Vent. Rate : 89 BPM Atrial Rate : 89 BPM P-R Int : 188 ms QRS Dur : 126 ms QT Int : 400 ms P-R-T Axes : 19 -20 129 degrees QTcB Int : 486 ms Atrial-sensed ventricular-paced rhythm with occasional sinus complexes and with occasional Premature ventricular complexes Abnormal ECG When compared with ECG of 11-Sep-2022 18:23, Vent. rate has increased by 4 bpm Referred By: Generic ED Physician Electronically Signed By: KORY NELSON MD
--- NOTE | 2024-03-17 10:37 | ED_ITS ---
HPI - General Adult General Chief complaint: Fall Stated complaint: FALL T-10,?LOC,+HS,-THIN,CANNOT AMBULATE Time Seen by Provider: 03/17/24 10:31 Source: patient and EMS Mode of arrival: EMS Limitations: no limitations History of Present Illness ED Provider: Damari Ocampo PA-C HPI narrative: Patient is a 73 year old assigned female at with a history of CAD presenting to the emergency department today with low back pain after a fall. Patient states that 10 days ago, she fell backwards, landing on her back and buttock. Patient states that she is not sure why she fell backwards but she did. Patient denies any loss of consciousness but states that she did hit her head. Patient denies any anti coagulation use. Patient denies any dizziness, lightheadedness, abdominal pain, nausea, vomiting, fever, chills, blurry vision, double vision, loss of vision, chest pain, difficulty breathing, shortness of breath, night sweats, pain with urination, increased urinary frequency, increased urinary urgency, blood in her urine or stool, syncope or a near syncopal episode, bowel incontinence, bladder incontinence, or any other complaints at this time. Onset (ago): day(s) () Location: head, back and buttocks Relieving factors: none Exacerbating factors: movement Associated symptoms: denies other symptoms Treatments prior to arrival: none Related Data Home Medications ?Medication ?Instructions ?Recorded ?Confirmed aspirin 81 mg tablet,delayed 81 mg PO DAILY 05/30/20 09/11/22 release (Adult Low Dose Aspirin) atorvastatin 80 mg tablet 80 mg PO BEDTIME 05/30/20 09/11/22 carvedilol 3.125 mg tablet 3.125 mg PO BID 12/27/21 09/11/22 Previous Rx's ?Medication ?Instructions ?Recorded heparin (porcine) 25,000 unit/250 25,000 unit (250 mL) continuous IV 09/12/22 mL in 0.45 % sodium chloride IV infusion .Q0M #1 mL soln Allergies Allergy/AdvReac Type Severity Reaction Status Date / Time No Known Allergies Allergy Mild N/A Verified 03/17/24 10:27 Review of Systems 2 Constitutional: Constitutional: Reports no additional constitutional complaints, Denies chills, Denies fever(s) and Denies night sweats Eyes: Eyes: Reports no additional eye complaints, Denies blurry vision, Denies change in vision, Denies diplopia, Denies eye discharge, Denies loss of vision and Denies eye pain ENT: Denies dizziness Cardiovascular: Cardiovascular: Reports no additional cardiovascular complaints, Denies chest pain, Denies lightheadedness, Denies Loss of Consciousness and Denies dyspnea Respiratory: Respiratory: Reports no additional respiratory complaints and Denies dyspnea Gastrointestinal: Gastrointestinal: Reports no additional gastrointestinal complaints, Denies abdominal pain, Denies melena, Denies hematochezia, Denies change in bowel habits and Denies change in stool character Genitourinary: Genitourinary: Denies hematuria, Denies urinary frequency, Denies dysuria, Denies urinary incontinence, Denies urinary hesitancy and Denies urinary urgency Musculoskeletal: Musculoskeletal: Reports no additional musculoskeletal complaints, Reports back pain, Denies numbness and Denies tingling Comments: buttock pain Neurologic: Denies dizziness, Denies loss of vision, Denies numbness and Denies tingling Psychiatric: Psychiatric: Reports no additional psychiatric complaints Endocrine: Endocrine: Reports no additional endocrine complaints Hematologic/Lymphatic: Hematologic/Lymphatic: Reports no additional hematologic/lymphatic complaints Allergic/Immunologic: Allergic/Immunologic: Reports no additional allergic/immunologic complaints [facility] Past Medical History Attestation statement: The following information was validated with the patient. Source: old records reviewed and nursing notes reviewed Medical History Adrenal nodule History of ST elevation myocardial infarction (STEMI) Ischemic cardiomyopathy History of complete heart block Hypertension Coronary artery disease History of pacemaker Surgical History History of coronary artery stent placement Family History Family History Mother No problems noted. Father No problems noted. Social History Social History Household Members: Spouse Housing: House Do you presently have visiting nurse or other home services: No Alcohol intake: former Patient Tobacco Use Status: Former Tobacco user Tobacco use type: Cigarette Cigarette Packs Per Day: 0.25 Second Hand Smoke Exposure: No Advance Directives: No Advance Directives Information Provided: Yes service: No Physical Exam ED Vital Signs: Vital Signs - 24 hr 03/17/24 10:25 Temperature 98.1 F Pulse Rate 98 Respiratory Rate 14 Blood Pressure 137/81 Pulse Oximetry 97 Oxygen Delivery Method Room Air BMI result Body Mass Index 27.6 Const General: cooperative, no acute distress, alert and awake Nutritional Appearance: well nourished Orientation/consciousness: patient oriented x3 Limitations: no limitations HENMT Head: Yes normal to inspection and Yes atraumatic Ears: hearing grossly normal bilaterally and external ears normal General nose exam: Normal external nose present, no nasal discharge noted and no epistaxis Face and sinus: Yes normal facial exam, No abrasion and No laceration Mouth: Normal oral and palatal mucosa present, no drooling and no muffled voice Eyes General: appearance normal, both eyes and all related structures Periorbital: periorbital findings normal Eyelids: Yes eyelids normal Conjunctivae: conjunctivae normal Pupils: Equal, round and reactive pupils present EOM: EOMs intact bilaterally Neck Neck: Yes normal visual inspection, Yes full ROM and Yes no lymphadenopathy Chest Chest palpation & inspection: normal inspection of the chest Resp Effort & Inspection: normal respiratory effort and able to speak in complete sentences GI Inspection: Yes normal to inspection Neuro General: patient oriented x3 and moves all extremities Cranial nerves: Yes Equal, round and reactive pupils present Cognition (Neuro): normal cognition Extrem General: Yes normal to inspection, Yes full ROM and Yes capillary refill normal Psych Appearance: grossly normal Mental Status: mental status grossly normal Affect: normal affect Attitude: cooperative Thought process: Normal thought process present Thought content: Normal thought content present Insight: Good insight present (Psych) Medications Administered Discontinued Medications Generic Name Dose Route Start Last Admin Trade Name Megaq PRN Reason Stop Dose Admin Oxycodone HCl 5 mg 03/17/24 12:22 03/17/24 12:53 Oxycodone Hcl Immed Release 5 Mg Tablet PO 03/17/24 12:23 5 mg ONCE ONE Administration Medical Decision Making Medical Decision Making [facility] Narrative: Patient is a 73 year old assigned female at with a history of CAD presenting to the emergency department today with low back pain after a fall. Patient's physical exam was unremarkable. Patient's blood work was unremarkable. Patient's EKG was unremarkable. Patient's chest x-ray, head CT, and c-spine CT showed no acute process. Patient's CT lumbar spine showed acute superior endplate L1 compression fracture. I explained my physical exam findings as well as all test results to the patient. I answered all questions asked by the patient. I stressed the importance of the patient taking her medication as directed (either prescribed or as the over the counter packaging recommends). I stressed the importance of the patient following up with her primary care provider. I stressed the importance of the patient returning to the emergency department immediately if her symptoms were to worsen or if she were to develop any dizziness, shortness of breath, difficulty breathing, chest pain, blurry vision, loss of vision, nausea, vomiting, abdominal pain, fever, chills, back pain, or any other complaints. Patient verbalized agreement and understanding with this treatment plan and discharge. Differential Diagnosis Differential Diagnoses: The differential diagnosis associated with the presentation includes Lumbar compression fracture Fall Lumbar spasm Lumbar strain Lumbar sprain Admission/Observation Consideration of admission/observation: Escalation of care including admission/observation considered Patient would have been admitted to the hospital had her work up had any findings where hospital admission was appropriate and her clinical presentation warranted hospital admission. Lab Data [facility] Lab Attestation statement: I reviewed the patient's lab results. My interpretation of these results are in the MDM Rationale portion of this note. 03/17/24 11:19 03/17/24 11:19 Labs: Lab Results 03/17/24 Range/Units 11:19 WBC 7.3 (4.8-10.8) X10*3/uL RBC 5.86 H D (4.20-5.50) X10*6/uL Hgb 15.9 D (12.0-16.0) g/dl Hct 49.1 H D (37.0-47.0) % MCV 83.8 (80.0-98.0) fL MCH 27.1 (27.0-33.0) pg MCHC 32.4 (31.0-35.0) g/dl RDW 14.7 (11.0-16.0) % Plt Count 222 (160-400) X10*3/uL MPV 10.3 (9.4-12.3) fL Immature Gran % (Auto) 0.7 H (0.0-0.4) % Neut % (Auto) 74.8 H (45-73) % Lymph % (Auto) 13.2 L (20-40) % Sandoval % (Auto) 8.7 (2-11) % Eos % (Auto) 1.6 (0-4) % Baso % (Auto) 1.0 (0-2) % Lymph # (Auto) 1.0 L (1.2-4.9) X10*3/uL [place]oval # (Auto) 0.6 (0.1-1.2) X10*3/uL Eos # (Auto) 0.1 (0.0-0.4) X10*3/uL Baso # (Auto) 0.1 (0.0-0.2) X10*3/uL Abs Immat Gran (auto) 0.05 H (0.00-0.03) X10*3/uL Absolute Neuts (auto) 5.5 (2.0-8.3) x10*3/uL Absolute Nucleated RBC 0.000 (0.0-0.012) X10*3/uL Nucleated RBC % (auto) 0.0 (0.0-0.2) /100WBC Sodium 140 (135-145) mmol/L Potassium 5.2 H (3.3-5.1) mmol/L Chloride 109 H (96-108) mmol/L Carbon Dioxide 23 (22-29) mmol/L Anion Gap 13 (12-20) BUN 24 H (9-16) mg/dL Creatinine 0.86 (0.5-1.4) mg/dL Estim Creat Clear Calc 55.3 Estimated GFR > 60 Random Glucose 104 (60-115) mg/dL Calcium 9.4 D (8.4-10.2) mg/dL Total Bilirubin 0.6 (0.0-1.0) mg/dL AST 22 (5-31) U/L ALT < 6 (0-31) U/L Alkaline Phosphatase 65 (39-117) U/L Total Protein 7.6 (6.5-8.0) g/dL Albumin 3.7 (3.5-5.0) g/dL Independent Interpretation I performed an independent interpretation of an: EKG, Plain X-Ray and CT Scan Interpretation: My interpretation is in agreement with the radiologist's impression of these imaging studies. L Report Number: [id number]: Total DLP = 545.00 mGy-cm EXAMINATION: CT LUMBAR SPINE WITHOUT CONTRAST CLINICAL INFORMATION: Fall, 10 days prior, lumbar pain. COMPARISON: None. Correlation made with CT abdomen and pelvis 11/30/2021. TECHNIQUE: Spiral CT examination of the lumbar spine was performed in axial plane without contrast. Sagittal, coronal, and thin section axial reformatted images were constructed from the axial data set. This CT examination was performed using dose optimization techniques as appropriate, variously including the following: *Automated exposure control *Adjustment of mA and/or kV according to patient size (this includes techniques or standardized protocols for targeted exams where dose is matched to indication/reason for exam; i.e. extremities or head) *Use of iterative reconstruction technique FINDINGS: There is osteopenia diffusely. No significant scoliosis. Normal lordosis. There is an acute superior endplate compression fracture of L1, with approximately 20% loss of height superiorly, and no retropulsion of bone. There is no extension into the pedicles or posterior elements. This is a stable fracture. There are no additional acute fractures identified. There are no old compression deformities. There is a grade 2, 1.4 cm spondylolisthesis L5-S1. Mild disc degeneration present T11-12 and T12-L1. Severe disc degeneration L5- S1. Facets are normally aligned. Mild degenerative facet arthrosis present L4-5 with more significant arthrosis L5-S1 with full-thickness pars defects. 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 There is no evidence of central canal stenosis or large disc herniation. No evidence of epidural hematoma. Severe bilateral neural foraminal encroachment L5-S1. Sacrum appears intact. SI joints appear intact with mild degenerative changes. Soft tissue evaluation is somewhat limited from respiratory motion degradation. Severe atheromatous calcification of the abdominal aorta and iliac vessels, and its branches, with associated aortic ectasia measuring up to 2.7 cm diameter infrarenally. No definite aneurysm seen. Calcifications in both renal collecting systems are felt to be vascular in origin. No hydronephrosis. There is a moderate-sized type I hiatus hernia. There are coronary calcifications. Lung bases demonstrate mild dependent changes but are otherwise clear. There is underlying emphysema suspected. There is bilateral adrenal hyperplasia. CT/CT lumbar spine wo IV con IMPRESSION: 1. Acute superior endplate L1 compression fracture with approximate 20% loss of height. No retropulsion of bone. No extension into the posterior elements. This is a stable fracture. No hematoma. 2. No additional acute fractures or compression deformities. 3. Grade 2 spondylolisthesis L5-S1. 4. Osteopenia diffusely. Degenerative spondylosis as described. 5. Severe atheromatous disease of the aorta, and its branches. 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 Electronically signed by: Horace Elise MD 03/17/2024 11:57 AM EST RP Dictated By: Horace Elise MD Signed By: Electronically signed by Horace Elise MD 03/17/24 1157 Report Number: [id number]: Total DLP = 706.00 mGy-cm EXAMINATION: CT HEAD WITHOUT CONTRAST CLINICAL INFORMATION: Fall 2010 days ago. Pain. COMPARISON: CT brain 11/30/2021 TECHNIQUE: Contiguous axial imaging was performed from the skull base to vertex without intravenous administration of contrast. This CT examination was performed using dose optimization techniques as appropriate, variously including the following: *Automated exposure control *Adjustment of mA and/or kV according to patient size (this includes techniques or standardized protocols for targeted exams where dose is matched to indication/reason for exam; i.e. extremities or head) *Use of iterative reconstruction technique DLP: 1619 mGy/cm. FINDINGS: There is no acute intra-axial, extra-axial bleed, masses or midline shift. There is no acute infarction evolution. There is no edema. The centeno to white matter differentiation is maintained normal. The lateral ventricles are symmetrical in size and configuration without enlargement. Bone windows reveal no calvarial abnormality. No scalp soft tissue abnormality. Bilateral paranasal sinuses and mastoid air cells are well-aerated. CT/CT head/brain wo IV con IMPRESSION: No acute intracranial process seen. No major change since 11/30/2021 Electronically signed by: Barrington Sorensen MD 03/17/2024 11:37 AM EST RP Dictated By: Barrington Sorensen MD Signed By: Electronically signed by Barrington Sorensen MD 03/17/24 1137 Report Number: [id number]: Total DLP = 370.00 mGy-cm EXAMINATION: CT CERVICAL SPINE WITHOUT CONTRAST CLINICAL INFORMATION: Fall 10 days ago, pain COMPARISON: None available. TECHNIQUE: 3 minutes thin axial and reformatted 2 mm thin sagittal and coronal images of cervical spine were obtained without contrast. This CT examination was performed using dose optimization techniques as appropriate, variously including the following: *Automated exposure control *Adjustment of mA and/or kV according to patient size (this includes techniques or standardized protocols for targeted exams where dose is matched to indication/reason for exam; i.e. extremities or head) *Use of iterative reconstruction technique DLP: 1619 mGy/cm. FINDINGS: There is normal cervical lordosis. The vertebral heights and alignment are normal. There is mild posterior spondylosis C3-4 and C6-C7 levels. Mild loss of C6-C7 disc height is noted. Rest of the disc heights are normal. The craniovertebral junction and the C1-C2 alignment is normal. There is mild loss of C3-4 C4-5 bilateral C5-6 and left 6-7 neural foraminal narrowing from uncovertebral hypertrophic changes. No visible acute fracture, dislocation or lytic process seen. The the prevertebral and paravertebral soft tissues are normal. The tracheal airway appears widely patent. Visualized bilateral mastoid sinuses are clear. No abnormal sized neck mass or lymphadenopathy. There is mild asymmetry of thyroid lobes but not enlarged. The lung apices are clear Normal CT/CT cervical spine wo IV con IMPRESSION: Mild degenerative disc changes C6-C7 disc levels with posterior spondylosis C3-4 and C6-C7 disc levels Fleischner guidelines were followed. Electronically signed by: Barrington Sorensen MD 03/17/2024 11:54 AM EST RP Dictated By: Barrington Sorensen MD Signed By: Electronically signed by Barrington Sorensen MD 03/17/24 1154 Vent. Rate: 89 BPM Atrial Rate: 89 BPM P-R Int: 188 ms QRS Dur: 126 ms QT Int: 400 ms P-R-T Axes: 19 -20 129 degrees QTcB Int: 486 ms Atrial-sensed ventricular-paced rhythm with occasional sinus complexes andwith occasional Premature ventricular complexes When compared with ECG of 11-Sep-2022 18:23, Vent. rate has increased by 4 bpm Referred By: Generic ED Physician Electronically Signed By: BEN NELSON MD Dictated By: Ben Nelson MD Signed By: Electronically signed by Ben Nelson MD 03/17/24 1059 Radiology Impression Discussion of test interpretation with radiology: I have reviewed the radiologist's reading. Independent Historian Clinical information obtained from an independent historian. History obtained from or confirmed by: EMS (EMS provided additional history and confirmed the history provided by the patient.) Discharge Plan Discharge Clinical Impression: Compression fx, lumbar spine Patient Disposition: Home, Self-Care Instructions: Vertebral Compression Fracture (ED) Additional Instructions: Follow up with your primary care provider. Return to the emergency department immediately if your symptoms worsen or if you develop any dizziness, shortness of breath, difficulty breathing, chest pain, blurry vision, loss of vision, nausea, vomiting, abdominal pain, fever, chills, back pain, or any other complaints. Prescriptions: No Action atorvastatin 80 mg tablet 80 mg PO BEDTIME aspirin [Adult Low Dose Aspirin] 81 mg tablet,delayed release (DR/EC) 81 mg PO DAILY heparin(porcine) in 0.45% NaCl 25,000 unit/250 mL Parenteral Solution 25,000 unit continuous IV infusion .Q0M Qty: 1 0RF carvedilol 3.125 mg tablet 3.125 mg PO BID Referrals: Nathan Orr MD [Primary Care Provider] - Discharge Date/Time: 03/17/24 13:17 Print Language: Hebrew
[2024-03-17 11:22] LABS: MANUAL DIFF FLAG NO
[2024-03-17 11:27] LABS: Basophils Absolute Auto 0.1 X10*3/uL (0.0-0.2); Eosinophils Absolute Auto 0.1 X10*3/uL (0.0-0.4); Eosinophils Percent Auto 1.6 % (0-4); Hematocrit 49.1 % (37.0-47.0); Hemoglobin 15.9 g/dl (12.0-16.0); Imm Gran Abs Auto 0.05 X10*3/uL (0.00-0.03); Imm Gran Pct Auto 0.7 % (0.0-0.4); Lymphocytes Percent Auto 13.2 % (20-40); Mean Corpuscular HGB Conc 32.4 g/dl (31.0-35.0); Mean Corpuscular Hemoglobin 27.1 pg (27.0-33.0); Mean Corpuscular Volume 83.8 fL (80.0-98.0); Mean Platelet Volume 10.3 fL (9.4-12.3); Monocytes Absolute Auto 0.6 X10*3/uL (0.1-1.2); Monocytes Percent Auto 8.7 % (2-11); Neutrophils Absolute Auto 5.5 x10*3/uL (2.0-8.3); Neutrophils Percent Auto 74.8 % (45-73); Platelet Count 222 X10*3/uL (160-400); Red Blood Count 5.86 X10*6/uL (4.20-5.50); Red Cell Distribution Width 14.7 % (11.0-16.0); White Blood Count 7.3 X10*3/uL (4.8-10.8)
[2024-03-17 11:39] LABS: Alanine Aminotransferase < 6 U/L (0-31); Albumin Level 3.7 g/dL (3.5-5.0); Alkaline Phosphatase 65 U/L (39-117); Anion Gap 13 (12-20); Aspartate Amino Transferase 22 U/L (5-31); Bilirubin Total 0.6 mg/dL (0.0-1.0); Blood Urea Nitrogen 24 mg/dL (9-16); Calcium 9.4 mg/dL (8.4-10.2); Carbon Dioxide 23 mmol/L (22-29); Chloride 109 mmol/L (96-108); Creatinine Clr Calc Pharmacy 55.3; Estimated Glomerular Filt Rate > 60; Glucose Random 104 mg/dL (60-115); Potassium 5.2 mmol/L (3.3-5.1); Sodium 140 mmol/L (135-145); Total Protein 7.6 g/dL (6.5-8.0)
[2024-03-17] MEDS: oxyCODONE HCl Immed Release 5 MG TABLET PO (12:53)
== END 2024-03-17 13:17 | disposition home or self-care (01) ==
PROVIDERS: Emergency Provider Emergency Medicine; PCP Internal Medicine
DX: S32.019A Unspecified fracture of first lumbar vertebra, initial encounter for closed fracture (principal); W19.XXXA Unspecified fall, initial encounter; Y93.9 Activity, unspecified; Y92.9 Unspecified place or not applicable; Y99.9 Unspecified external cause status; M54.2 Cervicalgia; M54.50 Low back pain, unspecified; R51.9 Headache, unspecified
CPT/HCPCS: 36415; 70450; 72125; 72131; 80053; 85025; 93005; 99283; 99284

== ENCOUNTER → 2024-03-17 10:28 | Outpatient (BNV) | payer MEDICARE, SELFPAY | PROVIDERS: Emergency Provider Emergency Medicine; Visit Provider Internal Medicine Cardiovascular Disease | DX: R94.31 Abnormal electrocardiogram [ECG] [EKG] (principal) | CPT/HCPCS: 93010 ==

== ENCOUNTER → 2024-03-17 10:41 | Outpatient (BNV) | payer MEDICARE, SELFPAY | PROVIDERS: Emergency Provider Emergency Medicine; PCP Internal Medicine; Visit Provider Radiology Diagnostic Radiology | DX: M54.50 Low back pain, unspecified (principal); M54.2 Cervicalgia; R51.9 Headache, unspecified | CPT/HCPCS: 70450; 72125; 72131 ==

== ENCOUNTER 2024-05-20 10:33 | Inpatient (IN) | payer MEDICARE, SELFPAY ==
[2024-05-20] VITALS (10 sets, daily range): BP systolic 92–166; BP diastolic 51–77; PULSE 60–79; RESP 14–20; TEMP 36.2–36.7; O2SAT 94–98
--- NOTE | ~2024-05-20 | NM_ITS ---
EXAMINATION: NM LUNG PERFUSION HISTORY: elevated d-dimer, intermittent hypoxia, near syncope. TECHNIQUE: A pulmonary perfusion scan was performed following the intravenous administration of 3.0 mCi technetium 99m-MAA. Images were obtained in multiple projections. COMPARISON: Correlation is made with an AP portable view of the chest performed earlier in the day. FINDINGS: There are small nonsegmental perfusion defects on the left, corresponding to a pacemaker battery pack and in the left upper lung zone. No segmental or subsegmental perfusion defects are identified. Findings are consistent with a very low probability for pulmonary emboli. NM/NM pul perfusion IMPRESSION: Very low probability for pulmonary embolic. Electronically signed by: Edy Telles MD 05/20/2024 03:34 PM EDT
--- NOTE | ~2024-05-20 | CT_ITS ---
EXAMINATION: CT ABDOMEN AND PELVIS WITH CONTRAST CLINICAL INFORMATION: Lower abdominal pain, diarrhea, near syncope. COMPARISON: 11/30/2021. TECHNIQUE: Multidetector volumetric images were obtained from the superior aspect of the liver through the pubic symphysis following administration 85 mL of Omnipaque 350 intravenous contrast. Sagittal and coronal reformatted images were obtained on the technologist's workstation. Oral contrast: No This CT examination was performed using dose optimization techniques as appropriate, variously including the following: *Automated exposure control *Adjustment of mA and/or kV according to patient size (this includes techniques or standardized protocols for targeted exams where dose is matched to indication/reason for exam; i.e. extremities or head) *Use of iterative reconstruction technique FINDINGS: LUNG BASES: Mild cardiomegaly with atrioventricular pacer leads. No effusions. Mild emphysema in the lung bases. There is a small to moderate-sized paraesophageal hiatus hernia. The distal esophagus appears patulous. LIVER, GALLBLADDER, AND BILIARY TREE: The liver is normal in size, shape, and attenuation. No focal hepatic lesion or biliary ductal dilatation is present. The gallbladder demonstrates mild wall thickening diffusely, without definite pericholecystic inflammatory changes. There is a cystic dilatation in the cystic duct (series 3, image 20). This was not definitely present previously. No radiopaque gallstones. Correlation with ultrasound recommended. There is no intra or extrahepatic biliary dilatation. The common duct is normal in caliber. PANCREAS: Unremarkable. SPLEEN: Normal in size. There are splenic granulomata. ADRENAL GLANDS: Unremarkable. KIDNEYS AND URETERS: The kidneys are normal in size, shape, and attenuation. No hydronephrosis, hydroureter, or calculi seen. No perinephric stranding. Calcifications in the right renal ewa are felt to be vascular in nature. BLADDER: Unremarkable. GASTROINTESTINAL TRACT: Small to moderate-sized type III hiatus hernia. Stomach is decompressed. Normal duodenum. Small bowel normal in caliber and course. No dilatation, wall thickening, or inflammation. Mobile cecum, and mild wall thickening of the ascending, and transverse colon, with submucosal fat deposition. There is moderate stool seen throughout the splenic flexure and descending/sigmoid colon. There is an anastomotic suture line at the colorectal junction. There is mild sigmoid diverticulosis. No inflammation. Mild rectal prolapse suspected. ABDOMINAL WALL: Prior hernia repair ventrally with mesh. No recurrent hernia seen. LYMPH NODES: None enlarged by size criteria. VASCULAR: Severe atheromatous calcification of the aorta and iliac vessels with associated ectasia. No aneurysm seen. PELVIC VISCERA: There has been a hysterectomy. There are no adnexal masses. OSSEOUS STRUCTURES: There is osteopenia. There is a compression fracture of the superior L1 vertebral body, possibly acute given appearance. No retropulsion of bone. Approximately 30% loss of height ventrally. No additional compression fractures or acute bony abnormalities. Grade 1 spondylolisthesis L5-S1 measuring [address]/CT abdomen pelvis w IV con IMPRESSION: 1. Gallbladder wall thickening and distention, with a cystic dilatation of either the proximal gallbladder or the distal cystic duct. Acute cholecystitis is a consideration. Recommend correlating with ultrasound. 2. Mild wall thickening of the ascending and proximal transverse colon, with associated submucosal fat deposition. Acute segmental colitis is a possibility. Fat deposition suggests sequela of possible inflammatory bowel disease. 3. Acute/subacute appearing compression fracture of L1 with approximately 30% loss of height. No retropulsion of bone. Correlate with back pain. 4. Grade 1 spondylolisthesis L5-S1. 5. Severe atheromatous calcification of the arterial vasculature with ectasia. No aneurysm. 6. Ancillary findings as discussed in the body of the report. Electronically signed by: Horace Elise MD 05/20/2024 02:06 PM EDT
--- NOTE | ~2024-05-20 | XR_ITS ---
EXAMINATION: XR CHEST CLINICAL INFORMATION: dyspnea COMPARISON: 08/12/2022. TECHNIQUE: AP view of the chest was obtained. FINDINGS: Dual lead pacer device noted left thorax, leads extending into the right atrium and right ventricle. Borderline cardiac enlargement, stable. Mediastinal and hilar contours normal. Aortic pleural calcifications. Lungs are hyperaerated bilaterally. There are scattered calcified granulomata noted. Lungs otherwise clear. No pneumothorax or effusion. No focal osseous or soft tissue abnormality. There are spinal degenerative changes. XR/XR chest 1V IMPRESSION: Hyperaerated lungs, likely COPD. Dual-lead pacemaker device. No active superimposed pulmonary disease. Electronically signed by: Horace Elise MD 05/20/2024 11:31 AM EDT RP
--- NOTE | ~2024-05-20 | US_ITS ---
EXAMINATION: US ABDOMEN LIMITED HISTORY: abnormal GB on CT scan here with nausea, diarrhea TECHNIQUE: Real-time grayscale ultrasound imaging of the right upper quadrant was performed and images were reviewed. COMPARISON: Correlation is made with a CT of the abdomen with contrast performed earlier in the day. FINDINGS: Sonographic examination of the gallbladder was performed. There are numerous shadowing calculi in the gallbladder with likely impaction in the gallbladder neck. There is mild diffuse wall thickening of the gallbladder. Minimal fluid is seen in the wall. No focal tenderness is reported over the gallbladder by the technologist. The common bile duct is normal in caliber measuring 4 mm in diameter. US/US abdomen limited IMPRESSION: Cholelithiasis with gallbladder wall thickening and fluid. There is no sonographic Musa sign, as reported by the technologist. If there remains clinical concern for acute cholecystitis, HIDA scan is recommended. Electronically signed by: Edy Telles MD 05/20/2024 03:02 PM EDT
--- NOTE | 2024-05-20 11:00 | ECG_ITS ---
Test Reason : HYPOTENSION Blood Pressure : */* mmHG Vent. Rate : 66 BPM Atrial Rate : 60 BPM P-R Int : 178 ms QRS Dur : 126 ms QT Int : 424 ms P-R-T Axes : 41 -6 174 degrees QTcB Int : 444 ms AV dual-paced rhythm with occasional Premature ventricular complexes Abnormal ECG When compared with ECG of 17-Mar-2024 10:36, Vent. rate has decreased by 23 bpm Referred By: Sheyla Johnston Electronically Signed By: KORY NELSON MD
--- NOTE | 2024-05-20 11:06 | ED_ITS ---
HPI - Syncope General Chief Complaint: Dizziness Stated Complaint: Feeling dizzy and tired. Non ambulatory per ems Time Seen by Provider: 05/20/24 10:59 Source: patient, EMS and old records reviewed Mode of arrival: EMS Limitations: no limitations History of Present Illness ED Provider: IRIS ALANIS narrative: 74 yo female with PMH of unstable angina, CAD with IDALIA, heart block with PPM, ischemic cardiomyopathy EF 46%, HTN who notes no recent change in medications but was at [employer] today and became weak and dizzy that she might pass out. No falls, no CP/SOB but felt nauseated. She was incontinent of stool during episode but no LOC. She ate oatmeal for breakfast. She denies recent illness/infectious symptoms. No GIB symptoms. She has not had any recent travel or procedures. On arrival to the ED she then notes abdominal cramps and brown non bloody diarrhea - no recent exposures or abx use. MD complaint: almost passed out Onset (ago): minute(s) ([employer]) Duration of episode: 30 -: minutes(s) Prodromal symptoms: lightheaded Witnessed: Yes - by Bystander Context: standing up Injuries sustained associated with event: none Current symptoms: lightheaded History: other (states one other episode a few weeks ago) Treatments prior to arrival: none Related Data Home Medications ?Medication ?Instructions ?Recorded ?Confirmed aspirin 81 mg tablet,delayed 81 mg PO DAILY 05/30/20 09/11/22 release (Adult Low Dose Aspirin) atorvastatin 80 mg tablet 80 mg PO BEDTIME 05/30/20 09/11/22 carvedilol 3.125 mg tablet 3.125 mg PO BID 12/27/21 09/11/22 Previous Rx's ?Medication ?Instructions ?Recorded heparin (porcine) 25,000 unit/250 25,000 unit (250 mL) continuous IV 09/12/22 mL in 0.45 % sodium chloride IV infusion .Q0M #1 mL soln Allergies Allergy/AdvReac Type Severity Reaction Status Date / Time No Known Allergies Allergy Mild N/A Verified 05/20/24 10:52 Review of Systems 2 Review of Systems: Constitutional : No Fever, No Chills, No Fatigue ENT/Mouth : No sore throat, No Rhinorrhea Eyes: No Eye Pain, No Swelling, No Redness Cardiovascular : No Chest Pain, No SOB, No Dyspnea on Exertion Respiratory : No Cough, No Sputum Gastrointestinal : No Nausea, No Vomiting, pos Diarrhea, No abdominal Pain Genitourinary : No Dysuria, No Urinary Frequency, No Hematuria, Musculoskeletal : No joint pain, No Myalgias, No Joint Swelling Skin : No Skin Lesions, No rash Neuro : pos Weakness, No Numbness, pos Dizziness, no Headache Psych : No Anxiety/Panic, No Depression All other systems reviewed and are negative [facility] Past Medical History Attestation statement: The following information was validated with the patient. Source: old records reviewed Medical History Adrenal nodule History of ST elevation myocardial infarction (STEMI) Ischemic cardiomyopathy History of complete heart block Hypertension Coronary artery disease History of pacemaker Surgical History History of coronary artery stent placement Family History Family History Mother No problems noted. Father No problems noted. Social History Social History Household Members: Spouse Housing: House Do you presently have visiting nurse or other home services: No Alcohol intake: former Patient Tobacco Use Status: Former Tobacco user Tobacco use type: Cigarette Cigarette Packs Per Day: 0.25 Smoked in Last 30 Days: No Second Hand Smoke Exposure: No Use of substances other than those prescribed or required for medical reasons: No Advance Directives: Yes Advance Directives Information Provided: Yes Advance Directives on File: No Do you have a plan to hurt others: No Plan service: No Physical Exam 2 Vital Signs: Vital Signs: Last Vital Signs Temp 97.5 F 05/20/24 14:08 Pulse 70 05/20/24 14:08 Resp 16 05/20/24 14:08 BP 125/69 05/20/24 14:08 Pulse Ox 94 05/20/24 14:08 O2 Del Method Room Air 05/20/24 14:08 BMI result Body Mass Index 30.0 Appearance: Alert. Oriented X3. No acute distress. Eyes: Pupils equal, round and reactive to light. ENT: Pharynx normal. Neck: Normal inspection. Neck supple. CVS: Normal heart rate and rhythm. Pulses normal. Respiratory: No respiratory distress. Breath sounds normal. Abdomen: Soft and non-tender. Brown stool noted Skin: Skin warm and dry. Normal skin color. Normal skin turgor. Extremities: No lower extremity edema. Neuro: Oriented X 3. No motor deficit. No sensory deficit. CN2-12 intact Course Course Course Narrative: trop negative x 2 ddimer up will obtain VQ scan US ordered given abnormal CT scan of GB still weak and dizzy when standing no wbc count afebrile even if colitis suspect more viral than bacterial would hold antibiotics 222pm Reevaluation(s) Reevaluation #1: given abnormal CT scan of GB and abd cramps will order US given intermittent hypoxia, near syncope and elevated ddimer VQ scan ordered I do not want to give her more contrast given her age Medications Administered Discontinued Medications Generic Name Dose Route Start Last Admin Trade Name Frejudith PRN Reason Stop Dose Admin Lactated Ringer's 1,000 mls @ 999 mls/hr 05/20/24 10:59 05/20/24 11:49 Lr IV 05/20/24 11:59 Infused .Q1H1M ONE Infusion Sodium Chloride 500 mls @ 500 mls/hr 05/20/24 11:46 05/20/24 14:34 Ns IV 05/20/24 12:45 Infused .Q1H ONE Infusion Iohexol 100 ml 05/20/24 13:41 05/20/24 13:42 Iohexol 350 Mg/Ml 100 Ml Infus..Btl IV 05/20/24 13:42 85 ml ONCE ONE Administration Medical Decision Making Medical Decision Making MDM Narrative: 74 yo female with PMH of unstable angina, CAD with IDALIA, heart block with PPM, ischemic cardiomyopathy EF 46%, HTN who had near syncope at grocery store no CP/SOB she notes she felt very weak had similar episode 3 weeks ago no recent infections or GIB symptoms she now on arrival has diarrhea - her orthos are positive will start gentle fluids, obtain labs, CT scan for colitis. Possible orthostatics, diarrhea, dehydration, atypical ACS, no CP/SOB to suggest VTE Differential Diagnosis Differential Diagnoses: The differential diagnosis associated with the presentation includes dehydration, orthostatics, atypical ACS Admission/Observation Consideration of admission/observation: Escalation of care including admission/observation considered admit for IV abx possible near syncope Dr. Oh will follow infectioun suspected at 343pm lactic acid, cultures, IV zosyn ordered Consult Healthcare Provider Management of the patient was discussed with: Hospitalist Lab Data MDM Lab Attestation statement: I reviewed the patient's lab results. 05/20/24 11:15 05/20/24 11:15 Labs: Lab Results 05/20/24 05/20/24 05/20/24 Range/Units 11:14 11:15 11:32 WBC 6.6 (4.8-10.8) X10*3/uL RBC 5.04 (4.20-5.50) X10*6/uL Hgb 13.9 (12.0-16.0) g/dl Hct 43.7 (37.0-47.0) % MCV 86.7 (80.0-98.0) fL MCH 27.6 (27.0-33.0) pg MCHC 31.8 (31.0-35.0) g/dl RDW 15.6 (11.0-16.0) % Plt Count 215 (160-400) X10*3/uL MPV 10.0 (9.4-12.3) fL Immature Gran % (Auto) 0.6 H (0.0-0.4) % Neut % (Auto) 74.0 H (45-73) % Lymph % (Auto) 12.7 L (20-40) % Grundy % (Auto) 9.5 (2-11) % Eos % (Auto) 2.1 (0-4) % Baso % (Auto) 1.1 (0-2) % Lymph # (Auto) 0.8 L (1.2-4.9) X10*3/uL Grundy # (Auto) 0.6 (0.1-1.2) X10*3/uL Eos # (Auto) 0.1 (0.0-0.4) X10*3/uL Baso # (Auto) 0.1 (0.0-0.2) X10*3/uL Abs Immat Gran (auto) 0.04 H (0.00-0.03) X10*3/uL Absolute Neuts (auto) 4.9 (2.0-8.3) x10*3/uL Absolute Nucleated RBC 0.000 (0.0-0.012) X10*3/uL Nucleated RBC % (auto) 0.0 (0.0-0.2) /100WBC D-Dimer High Sensitivty NG/ML Sodium 139 (135-145) mmol/L Potassium 5.2 H (3.3-5.1) mmol/L Chloride 108 (96-108) mmol/L Carbon Dioxide 25 (22-29) mmol/L Anion Gap 11 L (12-20) BUN 17 H (9-16) mg/dL Creatinine 0.92 (0.5-1.4) mg/dL Estim Creat Clear Calc 53.0 Estimated GFR 59 POC Glucose 96 (60-115) mg/dL Random Glucose 110 (60-115) mg/dL Calcium 9.4 (8.4-10.2) mg/dL Magnesium 2.0 (1.6-2.6) mg/dL Total Bilirubin 0.4 (0.0-1.0) mg/dL Direct Bilirubin 0.2 (0.0-0.5) mg/dL AST 21 (5-31) U/L ALT 9 (0-31) U/L Alkaline Phosphatase 51 (39-117) U/L Troponin I High Sens 2.7 D (<3.5-17.0) ng/L B-Natriuretic Peptide 314 H (<100) pg/mL Total Protein 7.0 (6.5-8.0) g/dL Albumin 3.6 (3.5-5.0) g/dL Lipase 14 (8-78) U/L Stool Occult Blood NEGATIVE (NEGATIVE) Stl C. cayetanensis PCR (Not Detect.) Stool Rotavirus A PCR (Not Detect.) Stl Adenov F 40/41 PCR (Not Detect.) Stool Astrovirus (PCR) (Not Detect.) Stool Campylobacter PCR (Not Detect.) Stool Cryptosporidium PCR (Not Detect.) Stl Sh Tox Pr E STEC PCR (Not Detect.) Stool E coli O157 PCR (Not Detect.) Stl Enterotoxigenic E PCR (Not Detect.) Stool EPEC (PCR) (Not Detect.) Stool EAEC (PCR) (Not Detect.) Stl E. histolytica PCR (Not Detect.) Stool Giardia Lamblia PCR (Not Detect.) Stl P. shigelloides PCR (Not Detect.) Stool Salmonella PCR (Not Detect.) Stool Sapovirus (PCR) (Not Detect.) Stl Shigella/EIEC PCR (Not Detect.) St Y.enterocolitica PCR (Not Detect.) Stool Vibrio (PCR) (Not Detect.) Stl Vibrio cholerae PCR (Not Detect.) Stl Norovirus GI/GII PCR (Not Detect.) C. difficile Tox B Gene (Negative) Influenza Type A (PCR) NEGATIVE (Negative) Influenza Type B (PCR) NEGATIVE (Negative) RSV RNA Qual (PCR) NEGATIVE (Negative) SARS-CoV-2 RNA (RT-PCR) NEGATIVE (Negative) Blood Type O Negative Antibody Screen NEGATIVE 05/20/24 05/20/24 Range/Units 11:34 13:54 WBC (4.8-10.8) X10*3/uL RBC (4.20-5.50) X10*6/uL Hgb (12.0-16.0) g/dl Hct (37.0-47.0) % MCV (80.0-98.0) fL MCH (27.0-33.0) pg MCHC (31.0-35.0) g/dl RDW (11.0-16.0) % Plt Count (160-400) X10*3/uL MPV (9.4-12.3) fL Immature Gran % (Auto) (0.0-0.4) % Neut % (Auto) (45-73) % Lymph % (Auto) (20-40) % Grundy % (Auto) (2-11) % Eos % (Auto) (0-4) % Baso % (Auto) (0-2) % Lymph # (Auto) (1.2-4.9) X10*3/uL Grundy # (Auto) (0.1-1.2) X10*3/uL Eos # (Auto) (0.0-0.4) X10*3/uL Baso # (Auto) (0.0-0.2) X10*3/uL Abs Immat Gran (auto) (0.00-0.03) X10*3/uL Absolute Neuts (auto) (2.0-8.3) x10*3/uL Absolute Nucleated RBC (0.0-0.012) X10*3/uL Nucleated RBC % (auto) (0.0-0.2) /100WBC D-Dimer High Sensitivty 495 NG/ML Sodium (135-145) mmol/L Potassium (3.3-5.1) mmol/L Chloride (96-108) mmol/L Carbon Dioxide (22-29) mmol/L Anion Gap (12-20) BUN (9-16) mg/dL Creatinine (0.5-1.4) mg/dL Estim Creat Clear Calc Estimated GFR POC Glucose (60-115) mg/dL Random Glucose (60-115) mg/dL Calcium (8.4-10.2) mg/dL Magnesium (1.6-2.6) mg/dL Total Bilirubin (0.0-1.0) mg/dL Direct Bilirubin (0.0-0.5) mg/dL AST (5-31) U/L ALT (0-31) U/L Alkaline Phosphatase (39-117) U/L Troponin I High Sens 3.1 (<3.5-17.0) ng/L B-Natriuretic Peptide (<100) pg/mL Total Protein (6.5-8.0) g/dL Albumin (3.5-5.0) g/dL Lipase (8-78) U/L Stool Occult Blood (NEGATIVE) Stl C. cayetanensis PCR Not Detected (Not Detect.) Stool Rotavirus A PCR Not Detected (Not Detect.) Stl Adenov F 40/41 PCR Not Detected (Not Detect.) Stool Astrovirus (PCR) Not Detected (Not Detect.) Stool Campylobacter PCR Not Detected (Not Detect.) Stool Cryptosporidium PCR Not Detected (Not Detect.) Stl Sh Tox Pr E STEC PCR Not Detected (Not Detect.) Stool E coli O157 PCR Not applicable (Not Detect.) Stl Enterotoxigenic E PCR Not Detected (Not Detect.) Stool EPEC (PCR) Not Detected (Not Detect.) Stool EAEC (PCR) Not Detected (Not Detect.) Stl E. histolytica PCR Not Detected (Not Detect.) Stool Giardia Lamblia PCR Not Detected (Not Detect.) Stl P. shigelloides PCR Not Detected (Not Detect.) Stool Salmonella PCR Not Detected (Not Detect.) Stool Sapovirus (PCR) Not Detected (Not Detect.) Stl Shigella/EIEC PCR Not Detected (Not Detect.) St Y.enterocolitica PCR Not Detected (Not Detect.) Stool Vibrio (PCR) Not Detected (Not Detect.) Stl Vibrio cholerae PCR Not Detected (Not Detect.) Stl Norovirus GI/GII PCR Not Detected (Not Detect.) C. difficile Tox B Gene NEGATIVE (Negative) Influenza Type A (PCR) (Negative) Influenza Type B (PCR) (Negative) RSV RNA Qual (PCR) (Negative) SARS-CoV-2 RNA (RT-PCR) (Negative) Blood Type Antibody Screen Independent Interpretation I performed an independent interpretation of an: EKG, Plain X-Ray (normal ), Ultrasound (abnormal GB study) and CT Scan (abnormal CT scan of abdomen) Interpretation: Rate: 66 Rhythm: dual paced with occ PVCs Holstein: normal wide QRS complex. ST T wave : inverted t wave I and aVL, no MEREDITH, artifact in lateral leads qTC: 444 prior studies: no sig change from prior including PVCs The study has been interpreted contemporaneously by me. . Radiology Impression Discussion of test interpretation with radiology: I have reviewed the radiologist's reading. Independent Historian Clinical information obtained from an independent historian. History obtained from or confirmed by: EMS External Record Review External record reviewed: Inpatient record and Outpatient record Discharge Plan Discharge Clinical Impression: Near syncope, Orthostatic hypotension, Acute cholecystitis Patient Disposition: Admitted As Inpatient Prescriptions: No Action atorvastatin 80 mg tablet 80 mg PO BEDTIME aspirin [Adult Low Dose Aspirin] 81 mg tablet,delayed release (DR/EC) 81 mg PO DAILY heparin(porcine) in 0.45% NaCl 25,000 unit/250 mL Parenteral Solution 25,000 unit continuous IV infusion .Q0M Qty: 1 0RF carvedilol 3.125 mg tablet 3.125 mg PO BID Print Language: Welsh
[2024-05-20 11:20] LABS: MANUAL DIFF FLAG NO
[2024-05-20] MEDS: Lactated Ringers 1,000 ML 999 ML IV (11:21)
[2024-05-20 11:24] LABS: OBS Int Ctl Valid YES; OBS1 NEGATIVE (NEGATIVE)
[2024-05-20 11:25] LABS: Basophils Absolute Auto 0.1 X10*3/uL (0.0-0.2); Basophils Percent Auto 1.1 % (0-2); Eosinophils Absolute Auto 0.1 X10*3/uL (0.0-0.4); Eosinophils Percent Auto 2.1 % (0-4); Hematocrit 43.7 % (37.0-47.0); Hemoglobin 13.9 g/dl (12.0-16.0); Imm Gran Abs Auto 0.04 X10*3/uL (0.00-0.03); Imm Gran Pct Auto 0.6 % (0.0-0.4); Lymphocytes Absolute Auto 0.8 X10*3/uL (1.2-4.9); Lymphocytes Percent Auto 12.7 % (20-40); Mean Corpuscular HGB Conc 31.8 g/dl (31.0-35.0); Mean Corpuscular Hemoglobin 27.6 pg (27.0-33.0); Mean Corpuscular Volume 86.7 fL (80.0-98.0); Monocytes Absolute Auto 0.6 X10*3/uL (0.1-1.2); Monocytes Percent Auto 9.5 % (2-11); Neutrophils Absolute Auto 4.9 x10*3/uL (2.0-8.3); Platelet Count 215 X10*3/uL (160-400); Red Blood Count 5.04 X10*6/uL (4.20-5.50); Red Cell Distribution Width 15.6 % (11.0-16.0); White Blood Count 6.6 X10*3/uL (4.8-10.8)
[2024-05-20 11:41] LABS: Alanine Aminotransferase 9 U/L (0-31); Albumin Level 3.6 g/dL (3.5-5.0); Alkaline Phosphatase 51 U/L (39-117); Anion Gap 11 (12-20); Aspartate Amino Transferase 21 U/L (5-31); Bilirubin Direct 0.2 mg/dL (0.0-0.5); Bilirubin Total 0.4 mg/dL (0.0-1.0); Blood Urea Nitrogen 17 mg/dL (9-16); Calcium 9.4 mg/dL (8.4-10.2); Carbon Dioxide 25 mmol/L (22-29); Chloride 108 mmol/L (96-108); Estimated Glomerular Filt Rate 59; Glucose Random 110 mg/dL (60-115); Lipase 14 U/L (8-78); Potassium 5.2 mmol/L (3.3-5.1); Sodium 139 mmol/L (135-145)
[2024-05-20 11:46] LABS: B Type Natriuretic Peptide 314 pg/mL (<100)
[2024-05-20 11:48] LABS: Troponin-I High Sensitivity 2.7 ng/L (<3.5-17.0)
[2024-05-20] MEDS: 0.9 % Sodium Chloride 500 ML IV (11:49)
[2024-05-20 11:59] LABS: Influenza A PCR NEGATIVE (Negative); Influenza B PCR NEGATIVE (Negative); Resp Syncy Virus RNA Qual PCR NEGATIVE (Negative); SARS COV2 PCR INHOUSE NEGATIVE (Negative)
[2024-05-20 12:21] LABS: Glucose, Whole Blood 96 mg/dL (60-115)
[2024-05-20 13:16] LABS: Adenovirus F 40/41 Not Detected (Not Detect.); Astrovirus Not Detected (Not Detect.); Campylobacter Not Detected (Not Detect.); Cryptosporidium Not Detected (Not Detect.); Cyclospora cayetanensis Not Detected (Not Detect.); E. coli EAEC Not Detected (Not Detect.); E. coli EPEC Not Detected (Not Detect.); E. coli ETEC Not Detected (Not Detect.); E. coli STEC Not Detected (Not Detect.); Entamoeba histolytica Not Detected (Not Detect.); Giardia lamblia Not Detected (Not Detect.); Norovirus GI/GII Not Detected (Not Detect.); Plesiomonas shigelloides Not Detected (Not Detect.); Rotavirus A Not Detected (Not Detect.); Salmonella Not Detected (Not Detect.); Sapovirus Not Detected (Not Detect.); Shigella sp./EIEC Not Detected (Not Detect.); Vibrio Not Detected (Not Detect.); Vibrio Cholerae Not Detected (Not Detect.); Yersinia enterocolitica Not Detected (Not Detect.)
--- NOTE | 2024-05-20 13:16 | MHC.EDTECH ---
Pt was on the bed main for a bowel movement. felipe care was given, rn aware
[2024-05-20 13:17] LABS: CDiff Gene PCR NEGATIVE (Negative)
[2024-05-20] MEDS: iohexoL 350 MG/ML 100 ML INFUS..BTL IV (13:42)
[2024-05-20 14:11] LABS: D Dimer High Sensitivity 495 NG/ML
[2024-05-20 14:19] LABS: Troponin-I High Sensitivity 3.1 ng/L (<3.5-17.0)
--- NOTE | 2024-05-20 15:51 | P.CONGS_ITS ---
History of Present Illness Consult details Consult date: 05/20/24 Narrative: The patient is a 74-year-old female with multiple medical problems including coronary disease, history of a STEMI, complete heart block, pacemaker placement, ischemic cardiomyopathy, hypertension, and heavy smoking, who is here in the ER because of near-syncope. She says that this morning lightheaded and queasy all of a sudden. She says at that time because of this lightheadedness she thought that might have been nauseous She denied any abdominal pain at all. She denied any actual vomiting. She does state that she has had this similar problems multiple times in the past because of her coronary artery disease. She describes an episode of abdominal cramping diarrhea around that time as well. This has since resolved Current she denies any abdominal pain at all. She denies any GI complaints. She had a CAT scan and ultrasound done because of her episode of nausea and cramping. This was suggestive of cholecystitis with gallbladder wall thickening so was referred to surgery. Again she says that she never had any episode of right upper quadrant pain any abdominal pain. She was reported to have episodes of hypoxia when she came to the ED. Review of Systems 2 Constitutional: Constitutional: Denies chills and Denies fever(s) Cardiovascular: Cardiovascular: Denies chest pain, Denies dyspnea and Denies dyspnea on exertion Respiratory: Respiratory: Denies cough, Denies dyspnea and Denies dyspnea on exertion Gastrointestinal: Gastrointestinal: Denies hematochezia, Denies change in bowel habits and Reports diarrhea Genitourinary: Genitourinary: Denies hematuria Musculoskeletal: Musculoskeletal: Denies back pain and Denies limited range of motion Neurologic: Denies focal weakness and Denies convulsions Psychiatric: Psychiatric: Denies depression and Denies mood swings [facility] Past Medical History Medical History Adrenal nodule History of ST elevation myocardial infarction (STEMI) Ischemic cardiomyopathy History of complete heart block Hypertension Coronary artery disease History of pacemaker Family History Family History Mother No problems noted. Father No problems noted. Surgical History Surgical History History of low anterior resection of rectum History of coronary artery stent placement Social History Social History Household Members: Spouse Housing: House Do you presently have visiting nurse or other home services: No Alcohol intake: former Patient Tobacco Use Status: Former Tobacco user Tobacco use type: Cigarette Cigarette Packs Per Day: 0.25 Second Hand Smoke Exposure: No service: No Meds Allergies Allergy/AdvReac Type Severity Reaction Status Date / Time No Known Allergies Allergy Mild N/A Verified 05/20/24 10:52 Active Medications: Current Medications Piperacillin Sod/Tazobactam (Sod 3.375 gm/ Sodium Chloride) 50 mls @ 100 mls/hr IV ONCE ONE Stop: 05/20/24 16:11 Home Medications ?Medication ?Instructions ?Recorded ?Confirmed ?Last Taken ?Type aspirin 81 mg tablet,delayed 81 mg PO DAILY 05/30/20 05/20/24 05/20/24 History release (Adult Low Dose Aspirin) atorvastatin 80 mg tablet 80 mg PO BEDTIME 05/30/20 05/20/24 05/19/24 History clopidogrel 75 mg tablet 75 mg PO DAILY 05/20/24 05/20/24 05/20/24 History metoprolol succinate 25 mg 25 mg PO DAILY 05/20/24 05/20/24 05/20/24 History tablet,extended release 24 hr Physical Exam 2 Vital Signs: Vital Signs: Last Vital Signs Temp 97.5 F 05/20/24 14:08 Pulse 70 05/20/24 14:08 Resp 16 05/20/24 14:08 BP 125/69 05/20/24 14:08 Pulse Ox 94 05/20/24 14:08 O2 Del Method Room Air 05/20/24 14:08 BMI result Body Mass Index 30.0 Const: Other: Looks well General: comfortable and no acute distress Resp: Effort & Inspection: normal respiratory effort Cardio: Rate: regular rate GI: Other: No Musa's sign, no tenderness anywhere abdomen Palpation (GI): Soft to palpation, not firm, nontender and no guarding Results Labs 05/20/24 11:15 05/20/24 11:15 Labs: Abnormal lab results 05/20/24 Range/Units 11:15 Immature Gran % (Auto) 0.6 H (0.0-0.4) % Neut % (Auto) 74.0 H (45-73) % Lymph % (Auto) 12.7 L (20-40) % Lymph # (Auto) 0.8 L (1.2-4.9) X10*3/uL Abs Immat Gran (auto) 0.04 H (0.00-0.03) X10*3/uL Potassium 5.2 H (3.3-5.1) mmol/L Anion Gap 11 L (12-20) BUN 17 H (9-16) mg/dL B-Natriuretic Peptide 314 H (<100) pg/mL Short CBC 05/20/24 Range/Units 11:15 WBC 6.6 (4.8-10.8) X10*3/uL Hgb 13.9 (12.0-16.0) g/dl Hct 43.7 (37.0-47.0) % Plt Count 215 (160-400) X10*3/uL BMP 05/20/24 11:15 Sodium 139 Potassium 5.2 H Chloride 108 Carbon Dioxide 25 BUN 17 H Creatinine 0.92 Calcium 9.4 Liver Function 05/20/24 Range/Units 11:15 Total Bilirubin 0.4 (0.0-1.0) mg/dL Direct Bilirubin 0.2 (0.0-0.5) mg/dL AST 21 (5-31) U/L ALT 9 (0-31) U/L Alkaline Phosphatase 51 (39-117) U/L Albumin 3.6 (3.5-5.0) g/dL All other labs normal. Imaging Abdomen CT scan report/results: report reviewed and image reviewed CT scan - pelvis: report reviewed and image reviewed Assessment and Plan (1) Near syncope: Status: Acute She was referred to surgery because of imaging studies of the abdomen history of of acute cholecystitis. This shows thickening of the gallbladder wall. However, she does not have any tenderness at all. She denies any right upper quadrant pain. She does not have any leukocytosis. Her LFTs are normal. Her alk-phos is within normal She does have multiple other medical problems. Her CAT scan was actually done because of an episode of loose stools earlier today. Overall clinical picture does not really suggest acute cholecystitis. Furthermore, she was other multiple medical issues including coronary disease and cardiomyopathy. It may be best to hold off on any surgical intervention at this time. I would her with antibiotics for the question of acute cholecystitis. She has a very benign exam. She should continue to be worked up for other ongoing medical issues. I will follow along while she is in the hospital. I reviewed the plan with the patient Procedures Date of Service Date of Service: 05/22/24
--- NOTE | 2024-05-20 16:47 | PM.IMHP ---
History of Present Illness Date of Service: 05/20/24 Chief Complaint: Syncope, abdominal pain 74-year-old female with history of coronary artery disease with h/o posterior STEMI s/p POBA and IDALIA to LCx 04/2020, h/o complete heart block s/p pacemaker, ischemic cardiomyopathy, htn, and former smoker with 40+ pack year history who quit 4 years ago here with syncope and acuet cholecystitis. She was at [place] when she passed out and had abdominal discomfort and cramps and found to have orthostatic hypotenison. Negat cardiac work up, VQ scan negative for PE, CT of abdomen and pelvis and US cholecystitis , surgery recommends IV Abx. WBC is normal and has and no fever Review of Systems Review of Systems: qa Gen: no fever Resp: no sob, no cough CV: no chest, no BUTLER, no leg edema GI: No n/v, no abd pain Neuro: No confusion Yes all other systems are reviewed and are negative [facility] Medical History Adrenal nodule History of ST elevation myocardial infarction (STEMI) Ischemic cardiomyopathy History of complete heart block Hypertension Coronary artery disease History of pacemaker Family History Mother No problems noted. Father No problems noted. Surgical History History of low anterior resection of rectum History of coronary artery stent placement Social History Household Members: Spouse Housing: House Do you presently have visiting nurse or other home services: No Alcohol intake: former Patient Tobacco Use Status: Former Tobacco user Tobacco use type: Cigarette Cigarette Packs Per Day: 0.25 Smoked in Last 30 Days: No Patient Interested in Nicotine Replacement: No Patient Given Instructions on How to Stop Smoking: No Second Hand Smoke Exposure: No Use of substances other than those prescribed or required for medical reasons: No Currently Displaying Signs/Symptoms of Drug Intoxication Withdrawal: No Any prior treatment program specific to substance use: No Have you been hit, kicked, punched, or otherwise hurt by someone within the past year? If so, by whom?: No Do you feel safe in your current relationship?: Yes Is there a partner from a previous relationship who is making you feel unsafe now?: No Are you made to feel afraid or neglected: No Spiritual Healthcare Practices: No specific spiritual practices Advance Directives: No Advance Directives Information Provided: Yes Advance Directives on File: No Do you have a plan to hurt others: No Plan Recently lost weight without trying: No How much weight loss: Not applicable Eating poorly because of decreased appetite: No Nutrition screen score: 0 Nutrition Risks: No Nutritional Risk Patient : No : No Poor oral hygiene: No service: No Meds Allergies Allergy/AdvReac Type Severity Reaction Status Date / Time No Known Allergies Allergy Mild N/A Verified 05/20/24 10:52 Home Medications ?Medication ?Instructions ?Recorded ?Confirmed ?Last Taken ?Type aspirin 81 mg tablet,delayed 81 mg PO DAILY 05/30/20 05/20/24 05/20/24 History release (Adult Low Dose Aspirin) atorvastatin 80 mg tablet 80 mg PO BEDTIME 05/30/20 05/20/24 05/19/24 History clopidogrel 75 mg tablet 75 mg PO DAILY 05/20/24 05/20/24 05/20/24 History metoprolol succinate 25 mg 25 mg PO DAILY 05/20/24 05/20/24 05/20/24 History tablet,extended release 24 hr Physical Exam Vital Signs and Narrative: Vital Signs: Last Vital Signs Temp 97.5 F 05/20/24 14:08 Pulse 70 05/20/24 14:08 Resp 16 05/20/24 14:08 BP 125/69 05/20/24 14:08 Pulse Ox 94 05/20/24 14:08 O2 Del Method Room Air 05/20/24 14:08 BMI result Body Mass Index 30.0 Const: Other: General: AO X 3, no acute distress Resp: CTA bilateral CVS: S1,S2,RRR GI: +BS, NT, no distention Skin: No rash Neuro: motor grossly intact Psych: appropriate affect Results Labs 05/20/24 11:15 05/20/24 11:15 Labs: Laboratory Results - last 24 hr 05/20/24 05/20/24 05/20/24 11:14 11:15 11:32 MCV 86.7 MCH 27.6 MCHC 31.8 RDW 15.6 Plt Count 215 MPV 10.0 Immature Gran % (Auto) 0.6 H Neut % (Auto) 74.0 H Lymph % (Auto) 12.7 L Petroleum % (Auto) 9.5 Eos % (Auto) 2.1 Baso % (Auto) 1.1 Lymph # (Auto) 0.8 L Petroleum # (Auto) 0.6 Eos # (Auto) 0.1 Baso # (Auto) 0.1 Abs Immat Gran (auto) 0.04 H Absolute Neuts (auto) 4.9 Absolute Nucleated RBC 0.000 Nucleated RBC % (auto) 0.0 D-Dimer High Sensitivty Anion Gap 11 L Estim Creat Clear Calc 53.0 Estimated GFR 59 POC Glucose 96 Random Glucose 110 Calcium 9.4 Magnesium 2.0 Total Bilirubin 0.4 Direct Bilirubin 0.2 AST 21 ALT 9 Alkaline Phosphatase 51 B-Natriuretic Peptide 314 H Total Protein 7.0 Albumin 3.6 Lipase 14 Stool Occult Blood NEGATIVE Stl C. cayetanensis PCR Stool Rotavirus A PCR Stl Adenov F 40/41 PCR Stool Astrovirus (PCR) Stool Campylobacter PCR Stool Cryptosporidium PCR Stl Sh Tox Pr E STEC PCR Stool E coli O157 PCR Stl Enterotoxigenic E PCR Stool EPEC (PCR) Stool EAEC (PCR) Stl E. histolytica PCR Stool Giardia Lamblia PCR Stl P. shigelloides PCR Stool Salmonella PCR Stool Sapovirus (PCR) Stl Shigella/EIEC PCR St Y.enterocolitica PCR Stool Vibrio (PCR) Stl Vibrio cholerae PCR Stl Norovirus GI/GII PCR C. difficile Tox B Gene Influenza Type A (PCR) NEGATIVE Influenza Type B (PCR) NEGATIVE RSV RNA Qual (PCR) NEGATIVE SARS-CoV-2 RNA (RT-PCR) NEGATIVE Blood Type O Negative Antibody Screen NEGATIVE 05/20/24 05/20/24 11:34 13:54 MCV MCH MCHC RDW Plt Count MPV Immature Gran % (Auto) Neut % (Auto) Lymph % (Auto) Petroleum % (Auto) Eos % (Auto) Baso % (Auto) Lymph # (Auto) Petroleum # (Auto) Eos # (Auto) Baso # (Auto) Abs Immat Gran (auto) Absolute Neuts (auto) Absolute Nucleated RBC Nucleated RBC % (auto) D-Dimer High Sensitivty 495 Anion Gap Estim Creat Clear Calc Estimated GFR POC Glucose Random Glucose Calcium Magnesium Total Bilirubin Direct Bilirubin AST ALT Alkaline Phosphatase B-Natriuretic Peptide Total Protein Albumin Lipase Stool Occult Blood Stl C. cayetanensis PCR Not Detected Stool Rotavirus A PCR Not Detected Stl Adenov F 40/41 PCR Not Detected Stool Astrovirus (PCR) Not Detected Stool Campylobacter PCR Not Detected Stool Cryptosporidium PCR Not Detected Stl Sh Tox Pr E STEC PCR Not Detected Stool E coli O157 PCR Not applicable Stl Enterotoxigenic E PCR Not Detected Stool EPEC (PCR) Not Detected Stool EAEC (PCR) Not Detected Stl E. histolytica PCR Not Detected Stool Giardia Lamblia PCR Not Detected Stl P. shigelloides PCR Not Detected Stool Salmonella PCR Not Detected Stool Sapovirus (PCR) Not Detected Stl Shigella/EIEC PCR Not Detected St Y.enterocolitica PCR Not Detected Stool Vibrio (PCR) Not Detected Stl Vibrio cholerae PCR Not Detected Stl Norovirus GI/GII PCR Not Detected C. difficile Tox B Gene NEGATIVE Influenza Type A (PCR) Influenza Type B (PCR) RSV RNA Qual (PCR) SARS-CoV-2 RNA (RT-PCR) Blood Type Antibody Screen Imaging Radiologist's Impressions: Impressions Chest X-Ray 05/20/24 11:00 IMPRESSION: Hyperaerated lungs, likely COPD. Dual-lead pacemaker device. No active superimposed pulmonary disease. Electronically signed by: Horace Elise MD 05/20/2024 11:31 AM EDT RP Abdomen/Pelvis CT 05/20/24 13:24 IMPRESSION: 1. Gallbladder wall thickening and distention, with a cystic dilatation of either the proximal gallbladder or the distal cystic duct. Acute cholecystitis is a consideration. Recommend correlating with ultrasound. 2. Mild wall thickening of the ascending and proximal transverse colon, with associated submucosal fat deposition. Acute segmental colitis is a possibility. Fat deposition suggests sequela of possible inflammatory bowel disease. 3. Acute/subacute appearing compression fracture of L1 with approximately 30% loss of height. No retropulsion of bone. Correlate with back pain. 4. Grade 1 spondylolisthesis L5-S1. 5. Severe atheromatous calcification of the arterial vasculature with ectasia. No aneurysm. 6. Ancillary findings as discussed in the body of the report. Electronically signed by: Horace Elise MD 05/20/2024 02:06 PM EDT RP Pulmonary Perfusion Imaging 05/20/24 14:30 IMPRESSION: Very low probability for pulmonary embolic. Electronically signed by: Edy Telles MD 05/20/2024 03:34 PM EDT RP Abdomen Ultrasound 05/20/24 14:41 IMPRESSION: Cholelithiasis with gallbladder wall thickening and fluid. There is no sonographic Musa sign, as reported by the technologist. If there remains clinical concern for acute cholecystitis, HIDA scan is recommended. Electronically signed by: Edy Telles MD 05/20/2024 03:02 PM EDT RP Assessment and Plan (1) Orthostatic hypotension: Status: Acute (2) Acute cholecystitis: Status: Acute Plan 72-year-old female with history of coronary artery disease with h/o posterior STEMI s/p POBA and IDALIA to LCx 04/2020, h/o complete heart block s/p pacemaker, ischemic cardiomyopathy, htn, and former smoker with 40+ pack year history who quit 4 years ago here with syncope and acuet cholecystitis Cholecystitis with CT and US finding of cholecystitis, but no pain, no fever, no inc wbc Abx for now surgery consult IVF liquid diet and advnce Syncope d/t orthostatic hypotension, IVF and repeat tomorrow -Monitor on elemetry CAD HTN HLD dvt prophylaxis: heparin Admission for cholecystitis, sycope Quality Stroke Does the patient have a stroke diagnosis?: No VTE Prior VTE?: No VTE Risk Level:: Medical - moderate - high VTE Device Contraindication: Treatment Not Indicated VTE Drug Contraindication: N/A - Med Ordered
[2024-05-20] MEDS: Piperacillin Sodium/Tazobactam 3.375 GM in 0.9 % Sodium Chloride 50 ML IV ×2 (16:51→22:52)
[2024-05-20 17:01] LABS: Lactic Acid 2.2 mmol/L (0.5-2.0)
--- NOTE | 2024-05-20 17:45 | PHA.MEDREC ---
Pharmacy Consult ? Medication Reconciliation Pharmacy has completed the medication reconciliation. Spoke to patient to confirm medications. She was able to tell me medications and I confirmed them against claim history.
[2024-05-20] MEDS: Heparin Sodium,Porcine 5,000 UNIT/ML VIAL 5000 UNIT SUBCUT (18:27)
[2024-05-20] MEDS: Lactated Ringers 1,000 ML 100 ML IVCONT (18:30)
[2024-05-20 18:41] LABS: Reflex Lactate? Lactic Acid Added
[2024-05-20 20:04] LABS: ~Lactic Acid-LAB USE ONLY 1.4 mmol/L (0.5-2.0)
[2024-05-20 20:42] LABS: Appearance Urine Clear; Color Urine Yellow; Glucose Urine UA Negative (Negative); Leukocyte Esterase Urine Negative (Negative); Nitrite Urine Negative (Negative); Specific Gravity - Urine >= 1.030 (1.005-1.025); Urine Blood Negative (Negative); Urine Ketones Negative (Negative); Urine Protein Negative (Neg-Trace)
[2024-05-20] MEDS: 0.9 % Sodium Chloride Flush 3 ML SYRINGE IVFLUSH (22:52)
[2024-05-21] MEDS: Heparin Sodium,Porcine 5,000 UNIT/ML VIAL 5000 UNIT SUBCUT ×2 (01:24→09:39)
[2024-05-21 02:33] VITALS: BMI 28.3
[2024-05-21 03:48] VITALS: BP 103/63; PULSE 64; RESP 19; TEMP 36.9; O2SAT 95
[2024-05-21] MEDS: Lactated Ringers 1,000 ML 100 ML IVCONT (05:07)
[2024-05-21] MEDS: Piperacillin Sodium/Tazobactam 3.375 GM in 0.9 % Sodium Chloride 50 ML IV ×2 (05:08→09:39)
[2024-05-21 07:34] VITALS: BP 152/68; PULSE 67; RESP 18; TEMP 36; O2SAT 98
--- NOTE | 2024-05-21 08:30 | MHC.CM.PN ---
CM met with Patient at bedside and addressed IMM with her, providing Patient with the original and a copy has been placed on the chart. Patient lives in a house with her /HCP/Alfonzo and she uses a cane @ times to assist with mobility. Home/self care is Patient's goal and CM has initiated and will follow for dc planning. PCP is Dr. Anton and will transport to home at time of dc.
--- NOTE | 2024-05-21 09:17 | PM.PNGS ---
Subjective Subjective Date of Service: 05/21/24 Interval history: Says she has been doing well overnight Denies any abdominal pain Tolerating clear liquids No fever Physical Exam Vital Signs: Vital Signs: Last Vital Signs Temp 96.8 F 05/21/24 07:34 Pulse 67 05/21/24 07:34 Resp 18 05/21/24 07:34 BP 152/68 H 05/21/24 07:34 Pulse Ox 98 05/21/24 07:34 O2 Del Method Room Air 05/21/24 07:34 BMI result Body Mass Index 28.3 Const: General: comfortable and no acute distress Resp: Effort & Inspection: normal respiratory effort Cardio: Rate: regular rate GI: Other: No Musa's sign Palpation (GI): Soft to palpation, not firm, nontender and no guarding Objective Data Active Medications Acetaminophen (Acetaminophen 325 Mg Tablet) 650 mg PO Q6H PRN PRN Reason: Pain, Mild 1-3,fever,headache Aspirin (Aspirin Enteric Coated 81 Mg Tablet.Dr) 81 mg PO DAILY [facility] Atorvastatin Calcium (Atorvastatin Calcium 80 Mg Tablet) 80 mg PO BEDTIME [facility] Calcium Carbonate (Calcium Carbonate 750 Mg Tab.Chew) 750 mg PO Q4H PRN PRN Reason: Heartburn Clopidogrel Bisulfate (Clopidogrel Bisulfate 75 Mg Tablet) 75 mg PO DAILY [facility] Heparin Sodium (Porcine) (Heparin Sodium,Porcine 5,000 Unit/Ml Vial) 5,000 unit SUBCUT Q8H [facility] Last Admin: 05/21/24 01:24 Dose: 5,000 unit Documented By: YURI Lactated Ringer's (Lr) 1,000 mls @ 100 mls/hr IVCONT .Q10H [facility] Last Admin: 05/21/24 05:07 Dose: 100 mls/hr Documented By: YURI Piperacillin Sod/Tazobactam (Sod 3.375 gm/ Sodium Chloride) 50 mls @ 100 mls/hr IV Q6H [facility] Last Infusion: 05/21/24 05:38 Dose: Infused Documented By: YURI Magnesium Hydroxide (Milk Of Magnesia 30 Ml Oral.Susp) 30 ml PO DAILY PRN PRN Reason: Constipation Melatonin (Melatonin 3 Mg Tablet) 6 mg PO BEDTIME PRN PRN Reason: Insomnia Metoprolol Succinate (Metoprolol Succinate Er 25 Mg Tab.Er.24h) 25 mg PO DAILY [facility]; Protocol Sodium Chloride (0.9 % Sodium Chloride Flush 3 Ml Syringe) 3 ml IVFLUSH QSHIFT JOSEPHINE Last Admin: 05/20/24 22:52 Dose: 3 ml Documented By: YURI Labs 05/20/24 11:15 05/20/24 11:15 Labs: Laboratory Results - last 24 hr 05/20/24 05/20/24 05/20/24 11:14 11:15 11:32 MCV 86.7 MCH 27.6 MCHC 31.8 RDW 15.6 Plt Count 215 MPV 10.0 Immature Gran % (Auto) 0.6 H Neut % (Auto) 74.0 H Lymph % (Auto) 12.7 L Jones % (Auto) 9.5 Eos % (Auto) 2.1 Baso % (Auto) 1.1 Lymph # (Auto) 0.8 L Jones # (Auto) 0.6 Eos # (Auto) 0.1 Baso # (Auto) 0.1 Abs Immat Gran (auto) 0.04 H Absolute Neuts (auto) 4.9 Absolute Nucleated RBC 0.000 Nucleated RBC % (auto) 0.0 D-Dimer High Sensitivty Anion Gap 11 L Estim Creat Clear Calc 53.0 Estimated GFR 59 POC Glucose 96 Random Glucose 110 Lactic Acid Lactic Acid F/U @ 2Hr Calcium 9.4 Magnesium 2.0 Total Bilirubin 0.4 Direct Bilirubin 0.2 AST 21 ALT 9 Alkaline Phosphatase 51 B-Natriuretic Peptide 314 H Total Protein 7.0 Albumin 3.6 Lipase 14 Urine Color Urine Appearance Urine pH Ur Specific [place] Urine Protein Urine Glucose (UA) Urine Ketones Urine Blood Urine Nitrite Ur Leukocyte Esterase Stool Occult Blood NEGATIVE Stl C. cayetanensis PCR Stool Rotavirus A PCR Stl Adenov F 40/41 PCR Stool Astrovirus (PCR) Stool Campylobacter PCR Stool Cryptosporidium PCR Stl Sh Tox Pr E STEC PCR Stool E coli O157 PCR Stl Enterotoxigenic E PCR Stool EPEC (PCR) Stool EAEC (PCR) Stl E. histolytica PCR Stool Giardia Lamblia PCR Stl P. shigelloides PCR Stool Salmonella PCR Stool Sapovirus (PCR) Stl Shigella/EIEC PCR St Y.enterocolitica PCR Stool Vibrio (PCR) Stl Vibrio cholerae PCR Stl Norovirus GI/GII PCR C. difficile Tox B Gene Influenza Type A (PCR) NEGATIVE Influenza Type B (PCR) NEGATIVE RSV RNA Qual (PCR) NEGATIVE SARS-CoV-2 RNA (RT-PCR) NEGATIVE Blood Type O Negative Antibody Screen NEGATIVE 05/20/24 05/20/24 05/20/24 11:34 13:54 16:39 MCV MCH MCHC RDW Plt Count MPV Immature Gran % (Auto) Neut % (Auto) Lymph % (Auto) Jones % (Auto) Eos % (Auto) Baso % (Auto) Lymph # (Auto) Jones # (Auto) Eos # (Auto) Baso # (Auto) Abs Immat Gran (auto) Absolute Neuts (auto) Absolute Nucleated RBC Nucleated RBC % (auto) D-Dimer High Sensitivty 495 Anion Gap Estim Creat Clear Calc Estimated GFR POC Glucose Random Glucose Lactic Acid 2.2 H* Lactic Acid F/U @ 2Hr Calcium Magnesium Total Bilirubin Direct Bilirubin AST ALT Alkaline Phosphatase B-Natriuretic Peptide Total Protein Albumin Lipase Urine Color Urine Appearance Urine pH Ur Specific [place] Urine Protein Urine Glucose (UA) Urine Ketones Urine Blood Urine Nitrite Ur Leukocyte Esterase Stool Occult Blood Stl C. cayetanensis PCR Not Detected Stool Rotavirus A PCR Not Detected Stl Adenov F 40/41 PCR Not Detected Stool Astrovirus (PCR) Not Detected Stool Campylobacter PCR Not Detected Stool Cryptosporidium PCR Not Detected Stl Sh Tox Pr E STEC PCR Not Detected Stool E coli O157 PCR Not applicable Stl Enterotoxigenic E PCR Not Detected Stool EPEC (PCR) Not Detected Stool EAEC (PCR) Not Detected Stl E. histolytica PCR Not Detected Stool Giardia Lamblia PCR Not Detected Stl P. shigelloides PCR Not Detected Stool Salmonella PCR Not Detected Stool Sapovirus (PCR) Not Detected Stl Shigella/EIEC PCR Not Detected St Y.enterocolitica PCR Not Detected Stool Vibrio (PCR) Not Detected Stl Vibrio cholerae PCR Not Detected Stl Norovirus GI/GII PCR Not Detected C. difficile Tox B Gene NEGATIVE Influenza Type A (PCR) Influenza Type B (PCR) RSV RNA Qual (PCR) SARS-CoV-2 RNA (RT-PCR) Blood Type Antibody Screen 05/20/24 05/20/24 19:45 20:30 MCV MCH MCHC RDW Plt Count MPV Immature Gran % (Auto) Neut % (Auto) Lymph % (Auto) Jones % (Auto) Eos % (Auto) Baso % (Auto) Lymph # (Auto) Jones # (Auto) Eos # (Auto) Baso # (Auto) Abs Immat Gran (auto) Absolute Neuts (auto) Absolute Nucleated RBC Nucleated RBC % (auto) D-Dimer High Sensitivty Anion Gap Estim Creat Clear Calc Estimated GFR POC Glucose Random Glucose Lactic Acid Lactic Acid F/U @ 2Hr 1.4 Calcium Magnesium Total Bilirubin Direct Bilirubin AST ALT Alkaline Phosphatase B-Natriuretic Peptide Total Protein Albumin Lipase Urine Color Yellow Urine Appearance Clear Urine pH 6.0 Ur Specific [place] >= 1.030 H Urine Protein Negative Urine Glucose (UA) Negative Urine Ketones Negative Urine Blood Negative Urine Nitrite Negative Ur Leukocyte Esterase Negative Stool Occult Blood Stl C. cayetanensis PCR Stool Rotavirus A PCR Stl Adenov F 40/41 PCR Stool Astrovirus (PCR) Stool Campylobacter PCR Stool Cryptosporidium PCR Stl Sh Tox Pr E STEC PCR Stool E coli O157 PCR Stl Enterotoxigenic E PCR Stool EPEC (PCR) Stool EAEC (PCR) Stl E. histolytica PCR Stool Giardia Lamblia PCR Stl P. shigelloides PCR Stool Salmonella PCR Stool Sapovirus (PCR) Stl Shigella/EIEC PCR St Y.enterocolitica PCR Stool Vibrio (PCR) Stl Vibrio cholerae PCR Stl Norovirus GI/GII PCR C. difficile Tox B Gene Influenza Type A (PCR) Influenza Type B (PCR) RSV RNA Qual (PCR) SARS-CoV-2 RNA (RT-PCR) Blood Type Antibody Screen Procedures Date of Service Date of Service: 05/21/24 Progress Note: A&P Assessment and plan (1) Acute cholecystitis: Status: Acute Assessment and Plan: She was brought to the ER because of near-syncope CAT scan done showed acute cholecystitis However, no abdominal pain, no tenderness, no Musa's sign No leukocytosis She looks well She has significant cardiac history Would treat with antibiotics Okay to advance diet as tolerated Time Spent With Patient Time: Total time managing care of this patient today ____ minutes. Quality Stroke Does the patient have a stroke diagnosis?: No VTE Prior VTE?: No VTE Risk Level:: Medical - moderate - high VTE Device Contraindication: Treatment Not Indicated VTE Drug Contraindication: N/A - Med Ordered
[2024-05-21] MEDS: Clopidogrel Bisulfate 75 MG TABLET PO (09:38)
[2024-05-21] MEDS: Metoprolol Succinate ER 25 MG TAB.ER.24H PO (09:38)
[2024-05-21] MEDS: Aspirin Enteric Coated 81 MG TABLET.DR PO (09:39)
[2024-05-21] MEDS: 0.9 % Sodium Chloride Flush 3 ML SYRINGE IVFLUSH (09:39)
[2024-05-21 11:55] VITALS: BP 122/65; PULSE 73; RESP 18; TEMP 36.1; O2SAT 95
--- NOTE | 2024-05-21 11:59 | PM.DS ---
DS: Providers Provider Date of Service: 05/21/24 Date of admission: 05/20/24 17:06 Date of discharge: 05/21/24 Primary care physician: Nathan Orr MD Consults: 05/21/24 07:59 Consult to General Surgery Routine Consulting Provider: [facility] [place] [facility] Reason for consultation: ? Cholecystitis DS: Diagnosis Discharge Diagnosis (1) Orthostatic hypotension: Status: Acute (2) Acute cholecystitis: Status: Acute DS: Summary Hospital Course Hospital Course: admission hpi 74-year-old female with history of coronary artery disease with h/o posterior STEMI s/p POBA and IDALIA to LCx 04/2020, h/o complete heart block s/p pacemaker, ischemic cardiomyopathy, htn, and former smoker with 40+ pack year history who quit 4 years ago here with syncope and acuet cholecystitis. She was at [employer] when she passed out and had abdominal discomfort and cramps and found to have orthostatic hypotenison. Negat cardiac work up, VQ scan negative for PE, CT of abdomen and pelvis and US cholecystitis , surgery recommends IV Abx. WBC is normal and has and no fever Hospital course: The patient presented with an episode of near syncope while at [employer], experiencing dizziness, fatigue, and the need to sit down. There was no loss of consciousness, but she had urinary incontinence. No seizure-like activity was described. She subsequently developed abdominal discomfort, which she described as a queasy feeling in the stomach. Upon presentation to the hospital, cardiac workup, including ECG and troponin I, was negative. A PE study with a VQ scan was also negative. CT and abdominal ultrasound findings were suggestive of cholecystitis, although LFTs were normal, WBC was normal, there was no fever, and no tenderness on exam. Despite this, she was started on IV antibiotics for possible cholecystitis. Surgery was consulted, and no immediate intervention was indicated; instead, she will be treated with oral antibiotics and follow up as an outpatient with surgery. The near syncope was likely due to orthostatic hypotension, for which she was hydrated. No further episodes occurred, and she was advised to drink plenty of fluids and stay well-hydrated. Time Attestation Discharge Coordination Time (in mins): 40 Quality: Safe Use of Opioids Does Pt have an Active Cancer Diagnosis on the Problem List?: No Quality: Stroke Does the patient have a stroke diagnosis?: No Physical Exam Vital Signs: Vital Signs: Last Vital Signs Temp 96.9 F 05/21/24 11:55 Pulse 73 05/21/24 11:55 Resp 18 05/21/24 11:55 BP 122/65 05/21/24 11:55 Pulse Ox 95 05/21/24 11:55 O2 Del Method Room Air 05/21/24 11:55 BMI result Body Mass Index 28.3 General: AO X 3, no acute distress Resp: CTA bilateral CVS: S1,S2,RRR GI: +BS, NT, no distention Skin: No rash Neuro: motor grossly intact Psych: appropriate affect DS: Data Data Completed and Pending Labs on day of discharge: Laboratory Results - last 24 hr 05/20/24 05/20/24 05/20/24 11:14 11:15 11:32 D-Dimer High Sensitivty POC Glucose 96 Lactic Acid Lactic Acid F/U @ 2Hr Troponin I High Sens Urine Color Urine Appearance Urine pH Ur Specific Shannon Urine Protein Urine Glucose (UA) Urine Ketones Urine Blood Urine Nitrite Ur Leukocyte Esterase Stl C. cayetanensis PCR Stool Rotavirus A PCR Stl Adenov F 40/41 PCR Stool Astrovirus (PCR) Stool Campylobacter PCR Stool Cryptosporidium PCR Stl Sh Tox Pr E STEC PCR Stool E coli O157 PCR Stl Enterotoxigenic E PCR Stool EPEC (PCR) Stool EAEC (PCR) Stl E. histolytica PCR Stool Giardia Lamblia PCR Stl P. shigelloides PCR Stool Salmonella PCR Stool Sapovirus (PCR) Stl Shigella/EIEC PCR St Y.enterocolitica PCR Stool Vibrio (PCR) Stl Vibrio cholerae PCR Stl Norovirus GI/GII PCR C. difficile Tox B Gene Influenza Type A (PCR) NEGATIVE Influenza Type B (PCR) NEGATIVE RSV RNA Qual (PCR) NEGATIVE SARS-CoV-2 RNA (RT-PCR) NEGATIVE Blood Type O Negative Antibody Screen NEGATIVE 05/20/24 05/20/24 05/20/24 11:34 13:54 16:39 D-Dimer High Sensitivty 495 POC Glucose Lactic Acid 2.2 H* Lactic Acid F/U @ 2Hr Troponin I High Sens 3.1 Urine Color Urine Appearance Urine pH Ur Specific Shannon Urine Protein Urine Glucose (UA) Urine Ketones Urine Blood Urine Nitrite Ur Leukocyte Esterase Stl C. cayetanensis PCR Not Detected Stool Rotavirus A PCR Not Detected Stl Adenov F 40/41 PCR Not Detected Stool Astrovirus (PCR) Not Detected Stool Campylobacter PCR Not Detected Stool Cryptosporidium PCR Not Detected Stl Sh Tox Pr E STEC PCR Not Detected Stool E coli O157 PCR Not applicable Stl Enterotoxigenic E PCR Not Detected Stool EPEC (PCR) Not Detected Stool EAEC (PCR) Not Detected Stl E. histolytica PCR Not Detected Stool Giardia Lamblia PCR Not Detected Stl P. shigelloides PCR Not Detected Stool Salmonella PCR Not Detected Stool Sapovirus (PCR) Not Detected Stl Shigella/EIEC PCR Not Detected St Y.enterocolitica PCR Not Detected Stool Vibrio (PCR) Not Detected Stl Vibrio cholerae PCR Not Detected Stl Norovirus GI/GII PCR Not Detected C. difficile Tox B Gene NEGATIVE Influenza Type A (PCR) Influenza Type B (PCR) RSV RNA Qual (PCR) SARS-CoV-2 RNA (RT-PCR) Blood Type Antibody Screen 05/20/24 05/20/24 19:45 20:30 D-Dimer High Sensitivty POC Glucose Lactic Acid Lactic Acid F/U @ 2Hr 1.4 Troponin I High Sens Urine Color Yellow Urine Appearance Clear Urine pH 6.0 Ur Specific Shannon >= 1.030 H Urine Protein Negative Urine Glucose (UA) Negative Urine Ketones Negative Urine Blood Negative Urine Nitrite Negative Ur Leukocyte Esterase Negative Stl C. cayetanensis PCR Stool Rotavirus A PCR Stl Adenov F 40/41 PCR Stool Astrovirus (PCR) Stool Campylobacter PCR Stool Cryptosporidium PCR Stl Sh Tox Pr E STEC PCR Stool E coli O157 PCR Stl Enterotoxigenic E PCR Stool EPEC (PCR) Stool EAEC (PCR) Stl E. histolytica PCR Stool Giardia Lamblia PCR Stl P. shigelloides PCR Stool Salmonella PCR Stool Sapovirus (PCR) Stl Shigella/EIEC PCR St Y.enterocolitica PCR Stool Vibrio (PCR) Stl Vibrio cholerae PCR Stl Norovirus GI/GII PCR C. difficile Tox B Gene Influenza Type A (PCR) Influenza Type B (PCR) RSV RNA Qual (PCR) SARS-CoV-2 RNA (RT-PCR) Blood Type Antibody Screen Discharge Plan Discharge Anticipated Discharge Date/Time: 05/21/24 15:20 Patient Disposition: Home, Self-Care Discharge Diagnosis: Near syncope, orthostatic Hypotension Referrals: Nathan Orr MD [Primary Care Provider] - 1 Week Fermín Oh MD [Physician] - 1 Week (cholecystitis) Discharge Medications: New amoxicillin-pot clavulanate 875-125 mg tablet 1 tab PO BID Qty: 12 0RF Continued atorvastatin 80 mg tablet 80 mg PO BEDTIME aspirin [Adult Low Dose Aspirin] 81 mg tablet,delayed release (DR/EC) 81 mg PO DAILY clopidogrel 75 mg tablet 75 mg PO DAILY metoprolol succinate 25 mg tablet extended release 24 hr 25 mg PO DAILY Discharge Orders: Discharge Order (Routine); Ordered 05/21/24 Ordered By: Garry Pastor Diet: Advance to usual diet Activity on Discharge: As tolerated Stand Alone Forms: Patient Portal Discharge page Print Language: Slovenian Care Plan Goals: recovery from syncope, cholceytitis Health Concerns: near syncope cholecystitis Plan of Treatment: take Augmentin as recommended for cholecytisitis drink plenty of fluid and follow up with your Doctor in a week, call for appointment follow up with Dr. Oh regarding your gallbladder inflamation Assessment: see above Discharge Date/Time: 05/21/24 16:11
[2024-05-21 14:38] VITALS: BP 123/61; PULSE 73
[2024-05-21 14:39] VITALS: BP 117/71; BP 131/77; PULSE 75; PULSE 95
[2024-05-21 15:23] VITALS: BP 130/77; PULSE 73; RESP 16; TEMP 36.6; O2SAT 96
--- NOTE | 2024-05-21 15:25 | MHC.CM.PN ---
Patient has been medically cleared for dc to home today, self care.
== END 2024-05-21 16:11 | disposition home or self-care (01) | DRG 312 ==
LOC: HO.ED 15:48 → HO.EDOVER 17:17 → HO.IMC 19:54
PROVIDERS: Admitting Provider Internal Medicine; Emergency Provider Emergency Medicine; PCP Internal Medicine; Visit Provider Internal Medicine
DX: I95.1 Orthostatic hypotension (principal); K81.0 Acute cholecystitis; I25.10 Atherosclerotic heart disease of native coronary artery without angina pectoris; E78.5 Hyperlipidemia, unspecified; I10 Essential (primary) hypertension; I25.5 Ischemic cardiomyopathy; Z20.822 Contact with and (suspected) exposure to COVID-19; Z95.5 Presence of coronary angioplasty implant and graft; Z87.891 Personal history of nicotine dependence; Z79.02 Long term (current) use of antithrombotics/antiplatelets; Z79.82 Long term (current) use of aspirin; Z79.899 Other long term (current) drug therapy
CPT/HCPCS: 0241U; 36415; 71045; 74177; 76705; 78580; 80048; 80076; 81003; 82272; 82947; 83605; 83690; 83735; 83880; 84484; 85025; 85379; 86850; 86900; 86901; 87040; 87493; 87507; 93005; 99285; A9540; J1644; J2543; J7120; Q9967

== ENCOUNTER → 2024-05-20 11:00 | Outpatient (BNV) | payer MEDICARE, SELFPAY | PROVIDERS: Emergency Provider Emergency Medicine; PCP Internal Medicine; Visit Provider Radiology Diagnostic Radiology | DX: R10.817 Generalized abdominal tenderness (principal); R19.7 Diarrhea, unspecified; R55 Syncope and collapse; R79.1 Abnormal coagulation profile; R93.2 Abnormal findings on diagnostic imaging of liver and biliary tract; R06.00 Dyspnea, unspecified | CPT/HCPCS: 71045; 74177; 76705; 78580 ==

== ENCOUNTER → 2024-05-20 11:00 | Outpatient (BNV) | payer MEDICARE, SELFPAY | PROVIDERS: Emergency Provider Emergency Medicine; PCP Internal Medicine; Visit Provider Internal Medicine Cardiovascular Disease | DX: I49.3 Ventricular premature depolarization (principal); Z95.0 Presence of cardiac pacemaker | CPT/HCPCS: 93010 ==

== ENCOUNTER → 2024-05-20 17:06 | Outpatient (BNV) | payer MEDICARE, SELFPAY | PROVIDERS: Admitting Provider Internal Medicine; Emergency Provider Emergency Medicine; PCP Internal Medicine; Visit Provider Internal Medicine | DX: I95.1 Orthostatic hypotension (principal); K81.0 Acute cholecystitis | CPT/HCPCS: 99223; 99239 ==

== ENCOUNTER → 2024-05-20 17:06 | Outpatient (BNV) | payer MEDICARE, SELFPAY | PROVIDERS: Admitting Provider Internal Medicine; Emergency Provider Emergency Medicine; PCP Internal Medicine; Visit Provider Surgery | DX: R55 Syncope and collapse (principal) | CPT/HCPCS: 99222; 99232 ==

== ENCOUNTER 2024-05-27 08:27 | Outpatient (AMB) | payer MEDICARE, SELFPAY ==
[2024-05-27 08:37] VITALS: BP 112/80; PULSE 76; O2SAT 99; BMI 27.9
--- NOTE | 2024-05-27 08:37 | MHC.PC.OV ---
Vital Signs 05/27/24 08:37 Height 5 ft 4 in Weight 162 lb 8 oz BMI 27.9 BP 112/80 Blood Pressure Location Lt brachial Position Sitting Pulse 76 Pulse Source Pulse Oximeter Pulse Oximetry (%) 99 Oxygen Delivery Method Room Air Intake Visit Reasons: [facility] [place] 05/20 Intake Note: Visit Reason: TCM Intake Note: Patient is here for hospital discharge follow up. Patient was discharged from [facility] [employer] Required: No Special Agent Fbi: Not Required per policy Accompanied by: Self / Same As Patient Allergies No Known Allergies Allergy (Mild, Verified 05/27/24 09:06) N/A Medication List - Last Reconciled 05/27/24 by Ashli Ward PA-C aspirin (Adult Low Dose Aspirin) 81 mg PO DAILY atorvastatin 80 mg PO BEDTIME clopidogrel 75 mg PO DAILY metoprolol succinate ER 25 mg PO DAILY Tobacco use date assessed: 05/27/24 Fall risk assessment: 1 Fall in past year Last assessed Fall Risk: 05/27/24 Dental Screening Dental Screen Date: 05/27/24 Did you have a dental visit in the last 12 months?: No Did you have a dental problem in the last 6 months where you did not have access to dental care?: No Was dental information given to patient?: No [facility] Medical History (Updated 05/27/24 @ 10:40 by Ashli Ward PA-C) Hospital discharge follow-up Hyperkalemia Adrenal nodule History of ST elevation myocardial infarction (STEMI) Ischemic cardiomyopathy History of complete heart block Hypertension Coronary artery disease History of pacemaker Surgical History History of low anterior resection of rectum History of coronary artery stent placement Family History Mother No problems noted. Father No problems noted. Social History Household Members: Spouse Housing: House Do you presently have visiting nurse or other home services: No Alcohol intake: former Patient Tobacco Use Status: Former Tobacco user Tobacco use type: Cigarette Cigarette Packs Per Day: 0.25 Second Hand Smoke Exposure: No service: No Cognitive needs: Yes Hearing needs: No Vision needs: No Questionnaire PHQ-9 Over the last 2 weeks, how often have you been bothered by any of the following problems? 1. Little interest or pleasure in doing things: not at all 2. Feeling down, depressed, or hopeless: not at all 3. Trouble falling or staying asleep, or sleeping too much: several days 4. Feeling tired or having little energy: not at all 5. Poor appetite or overeating: not at all 6. Feeling bad about yourself - or that you are a failure or have let yourself or your family down: not at all 7. Trouble concentrating on things, such as reading the newspaper or watching television: not at all 8. Moving or speaking so slowly that other people could have noticed. Or the opposite - being so fidgety or restless that you have been moving around a lot more than usual: not at all 9. Thoughts that you would be better off or of hurting yourself in some way: not at all Total score: 1 Depression Screening Interpretation: Negative Depression Screening Done: Yes 52880 - PHQ-9 Billing: Yes Source: Developed by Drs. Edy Beltran, Skylar Dykes, Jose Angel Partida and colleagues, with an educational rosalba from [employer]. Thrive Questionnaire Date Thrive assessed: 05/27/24 I am a: Patient What is your living situation today?: I have a steady place to live Within the past 12 months, did the food you bought not last and you didn't have the money to get more?: Never true Within the past 12 months, did you worry whether your food would run out before you got money to buy more?: Never true Do you have trouble paying for medicines?: No Do you have trouble getting transportation to medical appointments?: No Do you have trouble paying your heating and electricity bill?: No Do you have trouble taking care of your child, family member or friend?: No Do you have trouble with day-to-day activities such as bathing, preparing meals, shopping, managing finances, etc.?: No Are you currently unemployed and looking for a job?: No Are you interested in more education?: No Please select the resources that you would like help with: None Currently or been in a relationship where the following occur: No concerns reported THRIVE Score: 0 AUDIT C Alcohol Use Questionnaire (AUDIT-C) 1. How often do you have a drink containing alcohol?: Never 3. How often do you have six or more drinks on one occasion?: Never Total Score: 0 Score Reviewed/Action Taken: No DOUGLAS-7 AMB Questionnaire DOUGLAS-7 Date DOUGLAS - 7 assessed: 05/27/24 Feeling nervous, anxious, or on edge: 0 = Not at all Not being able to stop or control worryin = Not at all Worrying too much about different things: 0 = Not at all Trouble relaxin = Not at all Being so restless that it is hard to sit still: 0 = Not at all Becoming easily annoyed or irritable: 0 = Not at all Feeling afraid as if something awful might happen: 0 = Not at all Total DOUGLAS-7 score (0-4 normal; 5-9 mild; 10-14 moderate; 15-21 severe): 0 Source: Developed by Drs. Edy Beltran, Skylar Dykes, Jose Angel Partida and colleagues, with an educational rosalba from [employer]. DOUGLAS-7 Assessment Billing DOUGLAS-7 Assessment Tool: DOUGLAS-7 Assessment 28251 Physical exam (Primary Care) Vital Signs: Last Vital Signs Pulse 76 05/27/24 08:37 BP 112/80 05/27/24 08:37 Pulse Ox 99 05/27/24 08:37 Oxygen Delivery Method Room Air 05/27/24 08:37 Vitals signs have been reviewed. BMI result Body Mass Index 27.9 Tobacco/Smoking Status: Tobacco use Status Tobacco use date assessed 05/27/24 05/27/24 08:38 Patient Tobacco Use Status Former Tobacco user 05/27/24 08:38 Tobacco use type Cigarette 05/27/24 08:38 PHQ-9: PHQ-9 Score PHQ-9: Total score 1 05/27/24 09:13 Depression Screening Interpretation: Negative Thrive Assessment: Date of Thrive Assessment Date Thrive assessed 05/27/24 05/27/24 08:38 Currently or been in a relationship where the following occur: No concerns reported Coding Level of Care Code TCM High MDM <= 7 Days Complex EM visit Add On G2211 Diagnoses Hospital discharge follow-up Z09 Hyperkalemia E87.5 Acute cholecystitis K81.0 Orthostatic hypotension I95.1 Near syncope R55 Coronary artery disease I25.10 Additional Codes DOUGLAS-7 Assessment Billing - DOUGLAS-7 Assessment Tool: DOUGLAS-7 Assessment 24600 ([id number]) PHQ-9 - 44184 - PHQ-9 Billing: Yes ([id number]) Assessment & Plan Assessment & Plan (1) Hospital discharge follow-up: Code(s): Z09 - Encounter for follow-up examination after completed treatment for conditions other than malignant neoplasm Category: Medical (2) Hyperkalemia: Code(s): E87.5 - Hyperkalemia Category: Medical (3) Acute cholecystitis: Code(s): K81.0 - Acute cholecystitis Category: Medical Plan: Treated with antibiotics, surgical follow-up planned. Evaluate further surgical intervention based on progression. (4) Orthostatic hypotension: Code(s): I95.1 - Orthostatic hypotension Category: Medical Plan: Management focuses on hydration and monitoring orthostatic symptoms, with ongoing cardiology follow-up. (5) Near syncope: Code(s): R55 - Syncope and collapse Category: Medical Plan: Address linked to orthostatic hypotension. Status monitored in coordination with broader cardiovascular care. (6) Coronary artery disease: Code(s): I25.10 - Atherosclerotic heart disease of [place] coronary artery without angina pectoris Category: Medical Plan: Managed through medication regimen, with hand spring repairer oversight to ensure stability and prevent progression. Plan Plan Patient was informed and verbally consented to the use of an ambient scribe for clinic note documentation during this visit. 1. Syncope Address linked to orthostatic hypotension. Status monitored in coordination with broader cardiovascular care. 2. Orthostatic Hypotension Management focuses on hydration and monitoring orthostatic symptoms, with ongoing cardiology follow-up. 3. Acute Cholecystitis Treated with antibiotics, surgical follow-up planned. Evaluate further surgical intervention based on progression. 4. Coronary Artery Disease Managed through medication regimen, with hand spring repairer oversight to ensure stability and prevent progression. Discussion Notes Throughout the patient's visit, I facilitated detailed discussions concerning the likely diagnosis of her orthostatic hypotension and acute cholecystitis. I outlined the management plan involving continued hydration and close monitoring of her orthostatic symptoms. The patient completed her course of Augmentin for acute cholecystitis, and future surgical consultation was advised. Cardiovascular follow-ups are critical given her extensive cardiac history. I emphasized the importance of addressing symptoms promptly and maintaining hydration to manage her orthostatic blood pressure drops effectively. Potential changes in her health status were thoroughly discussed, such as increased dizziness or abdominal pain, which would necessitate earlier consultation. Orders: Orders Basic Metabolic Panel Today E87.5 - Hyperkalemia Patient Instructions: Patient Instructions - Continue to stay well-hydrated to manage orthostatic hypotension. - Follow up with hand spring repairer as scheduled to monitor heart condition and blood pressure. - Complete the antibiotic regimen for acute cholecystitis and attend follow-up surgical consultations as advised. - Monitor for any new or worsening symptoms such as dizziness, abdominal pain, or syncopal episodes, and seek medical attention if they occur. - Avoid consuming high-potassium foods, pending repeat potassium-level evaluation. - Maintain medication regimen as prescribed and consult with healthcare providers before making any changes. Scribe Plan - Not visible on output: Patient presents to the office for a Hospital discharge/TCM follow-up visit. Date of admission: 05/20/2024 Date of discharge: 05/21/2024 This is a Follow-up from admission at [facility] HPI: The patient is a 74-year-old female presenting for a TCM hospital discharge follow-up from [facility] from 05/20/2024 until 05/21/2024 she was diagnosed with with orthostatic hypotension and acute cholecystitis. She was hospitalized recently due to syncope, accompanied by dizziness and fatigue at a [employer]ilver springet, with noted hypotension (95/51 mmHg). Comprehensive cardiac and pulmonary embolism evaluations during her hospitalization were negative. Imaging studies confirmed acute cholecystitis without significant inflammatory markers; thus, IV antibiotics were administered, and surgery was postponed. She continued with oral antibiotics post-discharge and reports some persisting lightheadedness when standing. The patient's past medical history is critical with coronary artery disease, ischemic cardiomyopathy, and complete heart block necessitating a pacemaker. Discharged to/Current Location: Home Lives with: Diagnosis: Near-syncope; orthostatic hypotension; acute cholecystitis Procedures performed: She had labs which included a cardiac workup which was negative, V/Q scan negative for PE, CT scan abdomen pelvis and ultrasound revealed acute cholecystitis. She has surgical consult who recommended IV antibiotics and discharged with p.o. antibiotics with outpatient surgical follow-up. New medications: Patient was sent home with Augmentin b.i.d. for 6 more days which she has completed today Discontinued medications: No medications were discontinued Change medications/dosing: There were no changes in her medications or her dosing or per current medications Pending labs: There are no pending labs or diagnostic test Pending diagnostic test: There are no pending labs or diagnostic test Any Follow-up Labs required? There are no follow-up labs required at this time Any Follow-up Diagnostic test required? There are no follow-up diagnostic test at this time How are you feeling? Fine denies any complaints at this time Are you in any pain or discomfort? No pain or discomfort Do you have any questions about your condition or discharge instructions? Not at this time Were you able to get your medications filled? Yes taking as prescribed Do you have any questions about your medications? No at this time Any referrals required? Not at this time Were you able to schedule your follow-up appointment? Yes If home health was ordered, have they contact you? No Any outpatient services, if so, are you scheduled? No Are there any additional resources like transportation you might need during her recovery? Pt not interested - [facility]? Pt not interested - EDUCATIONAL PSYCHOLOGY PROFESSOR? Pt not interested - Meals on wheels? Pt not interested Educational need/resources: Pt not interested What support system do you have? , 2 Son's and 1 Daughter who live close to pt. 1 in [place] and 1 in [place]. Social History - Lives with . - Three children; two residing in [facility] and one nearby in [place]. - Former smoker, ceased four years ago after 40-year duration. - Independent in daily activities and does not require home health aids or meals services. Review of Systems - Cardiovascular: Denies chest pain. - Respiratory: Denies shortness of breath. - Gastrointestinal: Denies nausea or vomiting; denies diarrhea, black, or bloody stools. - Neurological: Denies dizziness, weakness, numbness, tingling, or changes in vision. - Musculoskeletal: Denies legs swelling. - General: Denies fever. Physical Exam Appearance: Alert. Oriented X3. No acute distress. Head: Normal external exam. Normocephalic. Atraumatic. Eyes: Pupils are equal, round, and reactive to light. Extraocular movements intact. Conjunctiva and sclera normal. Eyelids normal. Ears: External auditory canal normal. Tympanic membranes normal. Throat: Pharynx normal. Uvula midline. Moist mucous membranes. Neck: Normal inspection. Neck supple. Full range of motion. No adenopathy. Thyroid Normal. No meningeal signs. No neck mass noted. Cardiovascular: Normal heart rate and rhythm. Heart sound normal. No murmurs noted. Pulses normal throughout. Respiratory: No respiratory distress. Painless inspiration. Breath sounds normal. No wheezes/rales/rhonchi noted. Chest nontender. No accessory muscle usage noted or decreased air movement noted. Abdomen: Soft and nontender. Bowel sounds normal in all 4 quadrants. No distention noted. No organomegaly noted. No visible injury noted. Back: No costovertebral angle tenderness. Full range of motion noted. Skin: Skin warm and dry. Normal skin color. Normal skin turgor. No rashes/lesions/lacerations noted. Extremities: No lower extremity edema. Extremities exhibit normal range of motion. Extremities nontender. Neuro: Oriented X 3. No motor deficit. No sensory deficit. Reflexes normal. Results - Labs: Negative for COVID-19, influenza, and C. difficile. Normal white blood cell count. - Imaging: CT scan and ultrasound confirmed acute cholecystitis; no evidence of pulmonary embolism in VQ scan.
== END 2024-05-27 09:28 | disposition home or self-care (01) ==
LOC: HO.HMCH 08:28
PROVIDERS: PCP Internal Medicine; Visit Provider Physician Assistant Medical
DX: E87.5 Hyperkalemia (principal); Z09 Encounter for follow-up examination after completed treatment for conditions other than malignant neoplasm; K81.0 Acute cholecystitis; I95.1 Orthostatic hypotension; R55 Syncope and collapse; I25.10 Atherosclerotic heart disease of native coronary artery without angina pectoris

== ENCOUNTER → 2024-05-27 08:27 | Outpatient (BNVA) | payer MEDICARE, SELFPAY | PROVIDERS: PCP Internal Medicine; Visit Provider Physician Assistant Medical | DX: E87.5 Hyperkalemia (principal); K81.0 Acute cholecystitis; I95.1 Orthostatic hypotension; I25.10 Atherosclerotic heart disease of native coronary artery without angina pectoris; Z09 Encounter for follow-up examination after completed treatment for conditions other than malignant neoplasm | CPT/HCPCS: 96127; 99496 ==

== ENCOUNTER 2024-06-15 10:29 | Outpatient (AMB) | payer MEDICARE, SELFPAY ==
--- NOTE | 2024-06-15 10:43 | A.OFFVIS_ITS ---
Vital Signs 06/15/24 10:54 Height 5 ft 4 in Weight 164 lb 8 oz BMI 28.2 BP 151/88 H Blood Pressure Location Lt brachial Position Sitting Pulse 86 Intake Visit Reasons: Gallbladder problems Intake Note: Patient is seen in office for ER follow up visit, following for the gallbladder. Pt c/o:RUQ pain radiates to the back, nausea, feels like food doesn't digest, heartburn and acid reflux, onset couple of months, symptoms are worse after meals ED/us:05/21/24 Dry Food Products Mixer Required: No Accompanied by: Self / Same As Patient Allergies No Known Allergies Allergy (Mild, Verified 06/15/24 10:51) N/A HPI HPI Gallbladder problems: Details: The patient is a 74-year-old female with multiple medical problems including coronary disease, history of a STEMI, complete heart block, pacemaker placement, ischemic cardiomyopathy, hypertension, and heavy smoking, who is here for follow-up because of question of acute cholecystitis. She was admitted to the hospital last 05/20/2024.She says that this morning lightheaded and queasy all of a sudden. She says at that time because of this lightheadedness she thought that might have been nauseous She denied any abdominal pain at all. She denied any actual vomiting. She does state that she has had this similar problems multiple times in the past because of her coronary artery disease. She describes an episode of abdominal cramping diarrhea around that time as well. She therefore had a CAT scan done showing gallbladder wall thickening. However, examination did not suggest any upper quadrant pain and tenderness. She was discharged on hospital day 2. She continues to do well at home and denies any GI complaints currently. She d oes mentioned having back pain currently. She says sometimes this radiates of the right flank. She denies significant right upper quadrant pain or tenderness. She denies nausea or vomiting [facility] Medical History Hospital discharge follow-up Hyperkalemia Adrenal nodule History of ST elevation myocardial infarction (STEMI) Ischemic cardiomyopathy History of complete heart block Hypertension Coronary artery disease History of pacemaker Surgical History History of low anterior resection of rectum History of coronary artery stent placement Family History Mother No problems noted. Father No problems noted. Social History Household Members: Spouse Housing: House Do you presently have visiting nurse or other home services: No Alcohol intake: former Patient Tobacco Use Status: Former Tobacco user Tobacco use type: Cigarette Cigarette Packs Per Day: 0.25 Second Hand Smoke Exposure: No service: No Cognitive needs: Yes Hearing needs: No Vision needs: No Review of Systems Const Denies chills and Denies fever(s) Card Denies chest pain, Denies dyspnea and Reports dyspnea on exertion Resp Denies cough, Denies dyspnea and Reports dyspnea on exertion GI Denies hematochezia and Denies change in bowel habits Denies hematuria Musc Reports back pain and Denies limited range of motion Neuro Denies focal weakness and Denies convulsions Psych Denies depression and Denies mood swings Physical Exam Const General: comfortable and no acute distress Orientation/consciousness: patient oriented x3 Eyes Other: Anicteric Neck Neck: Yes no lymphadenopathy Resp Auscultation: clear to auscultation bilaterally Cardio Rhythm: regular rhythm GI Palpation (GI): Soft to palpation, nontender and no guarding Neuro General: patient oriented x3 Assessment & Plan Assessment & Plan (1) Acute cholecystitis: Code(s): K81.0 - Acute cholecystitis Category: Medical Plan: She was admitted for near syncopal symptoms last 05/20/2024. She had a CAT scan of the abdomen showing thickening of the gallbladder wall. However she did not have any tenderness on the right upper quadrant at that time. She describes back pain currently in the lumbar area. Sometimes she says that this seems to involve the right flank. She denies any right upper quadrant tenderness although describes occasional vague discomfort in the area I had a long discussion with her about the option of proceeding with cholecystectomy. I did tell her that her back pain may not nationally be from her gallbladder. She does have multiple medical problems especially with her history of coronary artery disease She does have an appointment with her director environmental in 2 weeks. I will see her in the office sometime next month to see how she is doing. Coding Level of Care Code Est Pt Level 4 (10278) Diagnoses Acute cholecystitis K81.0
[2024-06-15 10:54] VITALS: BP 151/88; PULSE 86; BMI 28.2
== END 2024-06-15 11:06 | disposition home or self-care (01) ==
LOC: HO.HGS 10:30
PROVIDERS: PCP Internal Medicine; Visit Provider Surgery
DX: K81.0 Acute cholecystitis (principal)
CPT/HCPCS: 99214

== ENCOUNTER → 2024-06-15 10:29 | Outpatient (BNVA) | payer MEDICARE, SELFPAY | PROVIDERS: PCP Internal Medicine; Visit Provider Surgery | DX: K81.0 Acute cholecystitis (principal); I25.2 Old myocardial infarction; I25.10 Atherosclerotic heart disease of native coronary artery without angina pectoris; Z95.0 Presence of cardiac pacemaker; Z87.891 Personal history of nicotine dependence | CPT/HCPCS: 99212 ==

== ENCOUNTER 2024-07-14 14:07 | Outpatient (AMB) | payer MEDICARE, SELFPAY ==
--- NOTE | 2024-07-14 14:53 | MHC.OFFVIS ---
Vital Signs 07/14/24 15:03 Height 5 ft 4 in Weight 159 lb BMI 27.3 BP 113/68 Blood Pressure Location Rt brachial Position Sitting Pulse 115 H Intake Visit Reasons: Gallbladder problems Intake Note: Patient scheduled today's visit to discuss gallbladder surgery. Recently seen by inorganic chemist Dr. Mayes who cleared patient for surgery. Patient c/o: RUQ pain and nausea. Denies diarrhea, constipation. Abd US: 05-20-2024 Tax Services Professional Required: No Accompanied by: Self / Same As Patient Allergies No Known Allergies Allergy (Mild, Verified 07/14/24 15:01) N/A HPI HPI Gallbladder problems: Details: The patient is a 74-year-old female with multiple medical problems including coronary disease, history of a STEMI, complete heart block, pacemaker placement, ischemic cardiomyopathy, hypertension, and heavy smoking, who is here for follow-up because of gallstones. She was admitted to the hospital last 05/20/2024.She says that this morning lightheaded and queasy all of a sudden. She says at that time because of this lightheadedness she thought that might have been nauseous She had imaging studies showing acute cholecystitis with gallstones. She denied any abdominal pain at all at that time. She denied any actual vomiting. She does state that she has had this similar problems multiple times in the past because of her coronary artery disease. She was discharged from the hospital then She however says that she has had periods of abdominal pain on the right upper quadrant and epigastric area since then. I had seen her last month for this. She wanted to be scheduled for cholecystectomy in view of her symptoms but we wanted her to be seen by her inorganic chemist because of her significant cardiac history. She says that she has been cleared by the inorganic chemist She says that in view of her symptoms, she wants to proceed with cholecystectomy. She says she continues to have periodic right upper quadrant and epigastric pain. [facility] Medical History (Updated 07/25/24 @ 14:21 by Rebecca Sow RN) Gallstones Hospital discharge follow-up Hyperkalemia Adrenal nodule History of ST elevation myocardial infarction (STEMI) Ischemic cardiomyopathy History of complete heart block Hypertension Coronary artery disease History of pacemaker Surgical History History of low anterior resection of rectum History of coronary artery stent placement Family History Mother No problems noted. Father No problems noted. Social History Household Members: Spouse Housing: House Do you presently have visiting nurse or other home services: No Alcohol intake: former Patient Tobacco Use Status: Former Tobacco user Tobacco use type: Cigarette Cigarette Packs Per Day: 0.25 Second Hand Smoke Exposure: No service: No Cognitive needs: Yes Hearing needs: No Vision needs: No Review of Systems Const Denies chills and Denies fever(s) Card Denies chest pain, Denies dyspnea and Reports dyspnea on exertion Resp Denies cough, Denies dyspnea and Reports dyspnea on exertion GI Denies hematochezia and Denies change in bowel habits Denies hematuria Musc Reports abnormal gait, Denies back pain and Denies limited range of motion Neuro Reports abnormal gait, Denies focal weakness and Denies convulsions Psych Denies depression and Denies mood swings Physical Exam Vital Signs: Last Vital Signs Pulse 115 H 07/14/24 15:03 BP 113/68 07/14/24 15:03 BMI result Body Mass Index 27.3 Const General: comfortable and no acute distress Orientation/consciousness: patient oriented x3 Neck Neck: Yes no lymphadenopathy Resp Auscultation: clear to auscultation bilaterally Cardio Rhythm: regular rhythm GI Other: Some tenderness on the upper abdomen Palpation (GI): Soft to palpation, nontender and no guarding Neuro General: patient oriented x3 Assessment & Plan Assessment & Plan (1) Gallstones: Code(s): K80.20 - Calculus of gallbladder without cholecystitis without obstruction Category: Medical Plan: She has known gallstones and continues to have periodic pain on the right upper quadrant and epigastric area. She now wants to proceed with cholecystectomy. She says that she has been cleared by inorganic chemist. She does have a known history of coronary artery disease, previous STEMI and ischemic cardiomyopathy I had a long discussion with her about the technique of laparoscopic cholecystectomy and possible open cholecystectomy. I reviewed with her the risks including but not limited to bleeding, infections, injury to other organs including bowel, liver and the bile ducts, heart attack, pneumonia strokes. She understands that her perioperative risks are much higher in view of her history of coronary artery disease She says she says she really wants to proceed with the surgery because of the discomfort. I am also going to check a CAT scan of the abdomen and pelvis to rule out any other pathology prior to her cholecystectomy. Orders: Orders CT abdomen pelvis w IV con 07/14/24 K80.20 - Calculus of gallbladder without cholecystitis without obstruction Blood Urea Nitrogen 07/14/24 K80.20 - Calculus of gallbladder without cholecystitis without obstruction Creatinine 07/14/24 K80.20 - Calculus of gallbladder without cholecystitis without obstruction Coding Level of Care Code Est Pt Level 4 (18412) Diagnoses Gallstones K80.20
[2024-07-14 15:03] VITALS: BP 113/68; PULSE 115; BMI 27.3
== END 2024-07-14 15:38 | disposition home or self-care (01) ==
LOC: HO.HGS 14:07
PROVIDERS: PCP Internal Medicine; Visit Provider Surgery
DX: K80.20 Calculus of gallbladder without cholecystitis without obstruction (principal)
CPT/HCPCS: 99214

== ENCOUNTER → 2024-07-14 14:07 | Outpatient (BNVA) | payer MEDICARE, SELFPAY | PROVIDERS: PCP Internal Medicine; Visit Provider Surgery | DX: K80.20 Calculus of gallbladder without cholecystitis without obstruction (principal) | CPT/HCPCS: 99212 ==

== ENCOUNTER 2024-07-26 06:29 | Outpatient (REF) | payer MEDICARE, SELFPAY ==
--- NOTE | ~2024-07-26 | CT_ITS ---
CLINICAL HISTORY: K80.20 - Calculus of gallbladder without cholecystitis without obstruction CT abdomen and pelvis with contrast Comparison: US/TN/SR - US ABDOMEN LIMITED - 05/20/24 14:[address]/TN/SR - CT ABDOMEN PELVIS W IV CON - 05/20/24 13:24 EDT Findings: The lung bases are clear. The gallbladder wall remains thickened similar to the prior exam. The gallbladder is moderately distended with suspected scarring or stricturing superiorly. There is an ill-defined likely inflammatory process in the fawn hepatis adjacent to the gallbladder There is mild splenomegaly. A few faint hypodense lesions are seen in the spleen. The rest of the solid organs are unremarkable. The small bowel is normal. Cecum is mobile and located in the midline pelvis. There is a small hiatal hernia. The stomach is otherwise unremarkable. The patient is status post lower abdominal ventral hernia repair. There are postoperative changes in the sigmoid region. There is colonic diverticulosis without evidence of diverticulitis. No acute fracture. . IMPRESSION: 1. Gallbladder wall thickening with possible adjacent inflammatory process in the fawn hepatis. Gallstone seen on sonography are not characterized on CT. Can not exclude acute cholecystitis though the finding is similar to the prior CT. The fawn hepatis inflammatory changes are not clearly characterized. Please correlate with MRCP. 2. Mild splenomegaly. Multiple faint hypodense lesions are seen in the spleen likely benign statistically. 3. Mobile cecum. 4. Ventral hernia repair. 5. Colonic diverticulosis without evidence of diverticulitis. This document has been electronically signed by: Johann Whitman MD on 07/26/2024 13:05:24
[2024-07-26] MEDS: iohexoL 350 MG/ML 100 ML INFUS..BTL IV (08:00)
[2024-07-26 08:34] LABS: Creatinine POC 1.1 mg/dL (0.5-1.4); GFR POC 54
[2024-07-26 17:38] LABS: Creatinine POC 1.1 mg/dL (0.5-1.4); GFR POC 54
== END 2024-07-26 06:30 | disposition home or self-care (01) ==
LOC: HO.CT 06:29
PROVIDERS: PCP Internal Medicine; Visit Provider Surgery
DX: K80.20 Calculus of gallbladder without cholecystitis without obstruction (principal)
CPT/HCPCS: 74177; 82565; Q9967

== ENCOUNTER 2024-07-27 10:02 | Inpatient (IN) | payer MEDICARE, SELFPAY ==
[2024-07-25 14:30] VITALS: BMI 27.3
--- NOTE | 2024-07-26 12:13 | P.CONAN_ITS ---
Documented by User: Karely Villagomez NP 07/26/24 12:19 HPI - Anesthesia Eval Consult details Narrative: 74yo F for Cholecystectomy Laparoscopic,possible open Cardiac optimized for surgery. Follows [facility] for: Ischemic cmp CAD s/p IL Complete HB s/p pacer PMFSH Active Problems Active Problems: All Active Problems Acute cholecystitis (Acute) Unstable angina (Acute) Encounter for initial annual wellness visit (AWV) in Medicare patient (Acute) Gallstones (Acute) Hospital discharge follow-up (Acute) Hyperkalemia (Acute) History of low anterior resection of rectum (Acute) Coronary artery disease (Acute) Past Medical History Medical History Gallstones Hospital discharge follow-up Hyperkalemia Adrenal nodule History of ST elevation myocardial infarction (STEMI) Ischemic cardiomyopathy History of complete heart block Hypertension Coronary artery disease History of pacemaker Family History Family History Mother No problems noted. Father No problems noted. Surgical History Surgical History H/O hand surgery History of bladder surgery H/O hernia repair History of low anterior resection of rectum History of coronary artery stent placement Social History Social History Household Members: Spouse Housing: House Are you a primary direct support professional caregiver to a significant other at home: No Do you presently have visiting nurse or other home services: No Alcohol intake: former Patient Tobacco Use Status: Former Tobacco user Tobacco use type: Cigarette Cigarette Packs Per Day: 0.25 Years Smoked: 45 Smoked in Last 30 Days: No Second Hand Smoke Exposure: No Use of substances other than those prescribed or required for medical reasons: No Have you been hit, kicked, punched, or otherwise hurt by someone within the past year? If so, by whom?: No Are you DNR?: No Advance Directives: No Advance Directives Information Provided: No Advance Directives on File: No Patient : No : No service: No Cognitive needs: Yes Hearing needs: No Vision needs: No Meds Allergies Allergy/AdvReac Type Severity Reaction Status Date / Time No Known Allergies Allergy Mild N/A Verified 07/27/24 07:05 Home Medications ?Medication ?Instructions ?Recorded ?Confirmed ?Last Taken ?Type aspirin 81 mg tablet,delayed 81 mg PO DAILY 05/30/20 07/27/24 07/26/24 History release (Adult Low Dose Aspirin) atorvastatin 80 mg tablet 80 mg PO BEDTIME 05/30/20 07/27/24 05/19/24 History clopidogrel 75 mg tablet 75 mg PO DAILY 05/20/24 07/27/24 07/22/24 History metoprolol succinate 25 mg 25 mg PO DAILY 05/20/24 07/27/24 07/27/24 History tablet,extended release 24 hr Exam Height,Weight and Vital Signs: Height 5 ft 4 in Weight 72.121 kg Narrative Narrative: EKG 04/2024 Vent. Rate : 66 BPM Atrial Rate : 60 BPM P-R Int : 178 ms QRS Dur : 126 ms QT Int : 424 ms P-R-T Axes : 41 -6 174 degrees QTcB Int : 444 ms AV dual-paced rhythm with occasional Premature ventricular complexes Abnormal ECG When compared with ECG of 17-Mar-2024 10:36, Vent. rate has decreased by 23 bpm ECHO 2023 Conclusions: - The left ventricular systolic function is mildly decreased. The calculated ejection fraction is 46% by biplane method. - The basal inferior and basal inferoseptal segments are akinetic. - The inferolateral wall is hypokinetic. - No obvious valvular pathology seen on this study. - There is mild dilatation of the ascending aorta measuring 3.90 cm. Pacer Interrogation 04/2024 DDD 60-130 Battery status OK AP 52% -EXPLOSIVE OPERATOR 96% 0.1% AT/AF [place] 1 VT-NS episode detected on 03/2024, 1 second in duration Assessment and Plan Assessment Anesthesia Assessment: Chart Reviewed Documented by User: Siri Ortega MD 07/27/24 08:09 [facility] Past Medical History Medical History Gallstones Hospital discharge follow-up Hyperkalemia Adrenal nodule History of ST elevation myocardial infarction (STEMI) Ischemic cardiomyopathy History of complete heart block Hypertension Coronary artery disease History of pacemaker Family History Family History Mother No problems noted. Father No problems noted. Family history of problems with anesthesia: No Surgical History Surgical History H/O hand surgery History of bladder surgery H/O hernia repair History of low anterior resection of rectum History of coronary artery stent placement History of Problems with Anesthesia: No Social History Social History Household Members: Spouse Housing: House Are you a primary direct support professional caregiver to a significant other at home: No Do you presently have visiting nurse or other home services: No Alcohol intake: former Patient Tobacco Use Status: Former Tobacco user Tobacco use type: Cigarette Cigarette Packs Per Day: 0.25 Years Smoked: 45 Smoked in Last 30 Days: No Second Hand Smoke Exposure: No Use of substances other than those prescribed or required for medical reasons: No Have you been hit, kicked, punched, or otherwise hurt by someone within the past year? If so, by whom?: No Are you DNR?: No Advance Directives: No Advance Directives Information Provided: No Advance Directives on File: No Patient : No : No service: No Cognitive needs: Yes Hearing needs: No Vision needs: No Meds Allergies Allergy/AdvReac Type Severity Reaction Status Date / Time No Known Allergies Allergy Mild N/A Verified 07/27/24 07:05 Home Medications ?Medication ?Instructions ?Recorded ?Confirmed ?Last Taken ?Type aspirin 81 mg tablet,delayed 81 mg PO DAILY 05/30/20 07/27/24 07/26/24 History release (Adult Low Dose Aspirin) atorvastatin 80 mg tablet 80 mg PO BEDTIME 05/30/20 07/27/24 05/19/24 History clopidogrel 75 mg tablet 75 mg PO DAILY 05/20/24 07/27/24 07/22/24 History metoprolol succinate 25 mg 25 mg PO DAILY 05/20/24 07/27/24 07/27/24 History tablet,extended release 24 hr Exam Airway Mallampati Class: II TM Dist: <=3cm Neck ROM: Limited Denture: Upper and Lower Heart: rrr Lungs: cta Assessment and Plan Assessment Anesthesia Assessment: Anesthesia Plan Discussed Final Anesthetic Review Family History of Problems with Anesthesia: No History of Problems with Anesthesia: No NPO: Yes ASA Class: III Final Preanesthetic Review: No Changes in Pt Med Stat, Meds/Allgs Chart Reviewed, Consent Obtained/Reviewed and Anes Risks/Benef Reviewed Patient Risk: Intermediate Procedure Risk: Intermediate Anesthetic Plan Anesthetic Plan: GA Disposition: Standard PACU
[2024-07-27] VITALS (20 sets, daily range): BP systolic 111–156; BP diastolic 55–75; PULSE 60–77; RESP 12–20; TEMP 36.1–36.3; O2SAT 92–100; BMI 27.4
--- NOTE | 2024-07-27 07:24 | MHC.SHP ---
Pre-Procedural Eval Section A - 24 Hr Update-Section A only Date of Service: 07/27/24 The patient is an INPATIENT: No Changes since office visit: No Cold of Flu in the past 2 weeks, No New Medical Problems, No Changes in Medication and No Patient answered all questions The patient has been examined within 24 hours of the surgical procedure. The History & Physical has been completed within 30 days and I have reviewed it.: No Section B - Complete if H&P > 30 days Chief Complaint: Calculus of gallbladder without cholecystitis with Details of Present Illness: Has had chronic right upper quadrant pain, CAT scan reviewed - significant inflammatory changes around the appendix; high possibility of open cholecystectomy explained to patient Allergies: Allergies Allergy/AdvReac Type Severity Reaction Status Date / Time No Known Allergies Allergy Mild N/A Verified 07/27/24 07:05 Plan I have reviewed the history and physical and performed a pertinent physical examination on my patient. No changes have occurred unless specified. Time Spent With Patient Time: Total time managing care of this patient today ____ minutes.
[2024-07-27] MEDS: Lactated Ringers 1,000 ML 50 ML IVCONT (08:13)
[2024-07-27] MEDS: cefoTEtan disodium 2 GM VIAL IVPUSH (08:30)
--- NOTE | 2024-07-27 10:04 | P.OP_ITS ---
Operative Note Operative Note Date of Service: 07/27/24 Narrative: Preop diagnosis: gallstones, chronic cholecystitis Postop diagnosis: Same, with severe thickening of the gallbladder wall, hydropic gallbladder, markedly indurated neck and duodenum thickly adherent to the neck of the gallbladder, with very poor planes consistent with acute on chronic cholecystitis; multiple large gallstone Procedure: Attempted laparoscopic cholecystectomy, converted to open subtotal fenestrating cholecystectomy Surgeon: Fermín Oh MD assistant farm operations manager: RENARD Miles The patient is a female with known gallstones, who has been complaining of [id number] right upper quadrant pain. She has known coronary artery disease and cardiomyopathy. However, she says that she really wanted to proceed with cholecystectomy because of worsening symptoms. She understood the technique of the planned procedure as well as the risks, benefits, and alternatives She was brought to the operating room placed supine under general anesthesia via endotracheal tube. The abdomen was prepped and draped in the usual sterile fashion. A surgical time-out was done. The patient received Cefotan 2 g IV preoperatively I made a short supraumbilical incision with a blade 15. This carried down through the full-thickness of the skin and subcutaneous fat. The fascia was seen. There was note of mesh as well so we had to open up the mesh enter the peritoneal cavity. The Jones port was introduced. Pneumoperitoneum was induced with a pressure of 15 mm Hg. We used a 10 mm laparoscope. With laparoscopic visualization I inserted a 5/12 mm port in the epigastric area below the subcostal margin. Two 5 mm ports introduced a small incision below the subcostal margin along the anterior axillary line and the midclavicular line. Graspers were placed through these working ports. There was note of a large mesh covering most of the abdominal from the lower to the upper. The ports were had to go through this mesh. The patient is placed in a steep head-down and [id number] position. The gallbladder was seen. This markedly distended, very indurated, erythematous with a thickened wall. We had to decompress it with an aspirating needle. We are then able to apply a grasper towards the fundus to retract the gallbladder cephalad. I was able to apply a grasper towards the area of the neck although with difficulty in view of the marked thickening of the wall. The distal neck appeared to be very markedly adherent to the duodenum. There was note of severe, firm induration surrounding this area consistent with chronic inflammatory changes. We attempted to define a plane of dissection between the gallbladder wall at the neck and the duodenum as well as all the indurated tissue. We had difficulty as we could not separate any of these nor identify any good plane. I therefore decided it would be unsafe to continue to proceed so I converted to open. I desufflated and removed all ports. I made a subcostal incision on the right side with a blade 15. This carried down with electrocautery through the full-thickness of the skin subcutaneous fat. The anterior sheath was incised with electrocautery. The rectus muscles were divided all the way laterally. The posterior sheath was divided and the peritoneal cavity was entered I positioned the Bookwalter retractors. This has were used to retract the viscera away from the subhepatic space. This allowed me good exposure of the markedly distended gallbladder. I was able to apply a Patricia clamp at the fundus. I incised the thick peritoneal lining of the gallbladder at the fundus. I then proceeded to identify a plane of dissection between the gallbladder wall and the liver bed. I continued to incise the rest of the very thick peritoneal lining of the gallbladder to continue separate the wall from the rest of the liver bed. We were able to some definition of planes between the gallbladder with the liver bed so we continued with this form dissection with a combination of electrocautery and blunt dissection with the peanut dissector. We continued to separate the gallbladder from the liver bed all the way to the neck. This point, the planes of dissection around the neck for very indurated really defined. Furthermore, the duodenum was very close to this area and was markedly adherent with out good planes. At this point, I therefore decided to proceed with a subtotal fenestrating cholecystectomy. I divided the gallbladder wall off of the rest of the distal neck using electrocautery. We cauterized oozing areas on the thick wall. We proceeded with this dissection until I was able to remove most of the gallbladder. About at least 90% of the gallbladder was removed. There was note of a large stone impacted at the neck which were able to retrieved. There were multiple stones in the gallbladder as well which was large. I observed for hemostasis. We cauterized all oozing areas especially on the divided wall. I then proceeded to position a SOHAIL drain on this area and this was brought out through the lateral most port site. The drain was secured to the skin with nylon 3-0 stitch We copiously irrigated. This was therefore a subtotal fenestrating cholec ystectomy We ensured hemostasis. We also made sure that there were no bowel injuries surrounding the area Once this was confirmed, I proceeded to then close the posterior sheath with running Polysorb 0 stitch. Here sheath was closed all the way laterally with a Maxon 1 stitch All skin incisions was closed with skin irene. We had closed the fascia of the umbilical incision earlier as well with the Polysorb 0 [id number] stitch. A rectus sheath block was then done by the anesthesiologist Dressings were applied The patient tolerated the procedure well. There were no immediate complications Estimated blood loss was about 25 cc The patient is extubated without difficulty and transferred to the recovery room with stable vital signs. The patient will be admitted to the hospital
[2024-07-27] MEDS: fentaNYL citrate/PF 100 MCG/2 ML VIAL 25 MCG IVPUSH ×5 (10:23→12:51)
[2024-07-27] MEDS: ondansetron HCL 4 MG/2 ML VIAL IVPUSH (10:26)
--- NOTE | 2024-07-27 10:30 | PHA.MEDREC ---
Pharmacy Consult ? Medication Reconciliation Pharmacy has completed the medication reconciliation. Reviewed med rec done by nursing in pre-op, matches claims.
[2024-07-27] MEDS: oxyCODONE HCl Immed Release 5 MG TABLET PO (14:16)
--- NOTE | 2024-07-27 14:24 | PM.EVENT ---
Event Note Date of Service: 07/28/24 Event Note: Seen postop She underwent open subtotal fenestrating cholecystectomy earlier Adequate pain control Stable vital signs Abdomen is soft SOHAIL drain with serosanguineous output Continue pain management I have updated her Time Spent With Patient Time: Total time managing care of this patient today ____ minutes.
[2024-07-27] MEDS: Acetaminophen 1,000 MG/100 ML PIGGYBACK 400 MG IV ×2 (15:45→21:44)
[2024-07-27] MEDS: 0.9 % Sodium Chloride Flush 3 ML SYRINGE IVFLUSH (15:50)
[2024-07-27] MEDS: Morphine Sulfate 4 MG/ML CARTRIDGE 3 MG IVPUSH (16:42)
--- NOTE | 2024-07-27 18:58 | HO.PM.IMCN ---
History of Present Illness Data of Consult Service Date: 07/27/24 Primary Care Provider: Ghassan Anton MD HPI 74-year-old female with history of coronary artery disease with h/o posterior STEMI s/p POBA and IDALIA to LCx 04/2020, h/o complete heart block s/p pacemaker, ischemic cardiomyopathy, htn, and former smoker with 40+ pack year history who quit 4 years ago in april of this year was treated for acute cholecystitis with antibiotics and today underwent elective colecystecomy, described as open subtotal fenestrating cholecystectomy. She has a SOHAIL drain. No noted complication and presently has no acute medical issues. Vitals reviewed and are stable. Review of Systems Review of Systems: Gen: no fever Resp: no sob, no cough CV: no chest, no BUTLER, no leg edema GI: No n/v, no abd pain Neuro: No confusion Yes all other systems are reviewed and are negative PMFSH Medical History Gallstones Hospital discharge follow-up Hyperkalemia Adrenal nodule History of ST elevation myocardial infarction (STEMI) Ischemic cardiomyopathy History of complete heart block Hypertension Coronary artery disease History of pacemaker Family History Mother No problems noted. Father No problems noted. Surgical History H/O hand surgery History of bladder surgery H/O hernia repair History of low anterior resection of rectum History of coronary artery stent placement Social History Household Members: Spouse Housing: House Are you a primary career development engineer to a significant other at home: No Do you presently have visiting nurse or other home services: No Alcohol intake: former Patient Tobacco Use Status: Former Tobacco user Tobacco use type: Cigarette Cigarette Packs Per Day: 0.25 Years Smoked: 45 Smoked in Last 30 Days: No Second Hand Smoke Exposure: No Use of substances other than those prescribed or required for medical reasons: No Have you been hit, kicked, punched, or otherwise hurt by someone within the past year? If so, by whom?: No Do you feel safe in your current relationship?: Yes Is there a partner from a previous relationship who is making you feel unsafe now?: No Are you made to feel afraid or neglected: No Are you DNR?: No Advance Directives: No Advance Directives Information Provided: Yes Advance Directives on File: No Do you have a plan to hurt others: No Plan Recently lost weight without trying: No Nutrition Risks: No Nutritional Risk Patient : No : No service: No Cognitive needs: Yes Hearing needs: No Vision needs: No Meds Allergies Allergy/AdvReac Type Severity Reaction Status Date / Time No Known Allergies Allergy Mild N/A Verified 07/27/24 07:05 Active Medications: Current Medications Al Hydroxide/Mg Hydroxide (Magnesium Hydrox/Alum Hydrox 30 Ml Oral.Susp) 30 ml PO Q6H PRN PRN Reason: heartburn Atorvastatin Calcium (Atorvastatin Calcium 80 Mg Tablet) 80 mg PO BEDTIME [facility] Calcium Carbonate (Calcium Carbonate 750 Mg Tab.Chew) 750 mg PO Q6H PRN PRN Reason: Heartburn Docusate Sodium (Docusate Sodium 100 Mg Capsule) 100 mg PO BEDTIME [facility] Lactated Ringer's (Lr) 1,000 mls @ 50 mls/hr IVCONT .Q20H [facility] Last Admin: 07/27/24 08:13 Dose: 50 mls/hr Acetaminophen (Ofirmev) 1,000 mg in 100 mls @ 400 mls/hr IV Q6H [facility] Last Infusion: 07/27/24 16:03 Dose: Infused Melatonin (Melatonin 3 Mg Tablet) 6 mg PO BEDTIME PRN PRN Reason: Insomnia Metoprolol Succinate (Metoprolol Succinate Er 25 Mg Tab.Er.24h) 25 mg PO DAILY [facility]; Protocol Morphine Sulfate (Morphine Sulfate 4 Mg/Ml Cartridge) 3 mg IVPUSH Q3H PRN; Protocol PRN Reason: Pain, Severe (Pain Scale 7-10) Last Admin: 07/27/24 16:42 Dose: 3 mg Naloxone HCl (Naloxone Hcl 0.4 Mg/Ml Vial) 0.04 mg IVPUSH Q5M PRN PRN Reason: Excessive sedation or RR < 8 Ondansetron HCl (Ondansetron Hcl 4 Mg/2 Ml Vial) 4 mg IVPUSH Q8H PRN PRN Reason: Nausea and Vomiting Oxycodone HCl (Oxycodone Hcl Immed Release 5 Mg Tablet) 5 mg PO Q4H PRN PRN Reason: Pain, Severe (Pain Scale 7-10) Last Admin: 07/27/24 14:16 Dose: 5 mg Polyethylene Glycol (Polyethylene Glycol 3350 17 Gm Powd.Pack) 17 gm PO DAILY PRN PRN Reason: constipation Sodium Chloride (0.9 % Sodium Chloride Flush 3 Ml Syringe) 3 ml IVFLUSH QSHIFT [facility]PH[facility] Last Admin: 07/27/24 15:50 Dose: 3 ml Home Medications ?Medication ?Instructions ?Recorded ?Confirmed ?Last Taken ?Type aspirin 81 mg tablet,delayed 81 mg PO DAILY 05/30/20 07/27/24 07/26/24 History release (Adult Low Dose Aspirin) atorvastatin 80 mg tablet 80 mg PO BEDTIME 05/30/20 07/27/24 05/19/24 History clopidogrel 75 mg tablet 75 mg PO DAILY 05/20/24 07/27/24 07/22/24 History metoprolol succinate 25 mg 25 mg PO DAILY 05/20/24 07/27/24 07/27/24 History tablet,extended release 24 hr Physical Exam Vital Signs and Narrative: Vital Signs: Last Vital Signs Temp 97.1 F 07/27/24 15:24 Pulse 62 07/27/24 15:24 Resp 17 07/27/24 15:24 BP 156/72 H 07/27/24 15:24 Pulse Ox 98 07/27/24 15:24 O2 Del Method Nasal Cannula 07/27/24 15:24 O2 Flow Rate 2 07/27/24 15:24 BMI result Body Mass Index 27.4 Results Labs 07/28/24 06:08 Labs: Laboratory Results - last 24 hr 07/27/24 07:18 Blood Type O Negative Antibody Screen NEGATIVE Assessment and Plan (1) Gallstones: Status: Acute (2) Coronary artery disease: Status: Acute Plan 74-year-old female with history of coronary artery disease with h/o posterior STEMI s/p POBA and IDALIA to LCx 04/2020, h/o complete heart block s/p pacemaker, ischemic cardiomyopathy, htn, and former smoker with 40+ pack year history who quit 4 years ago. In april of this year was treated for acute cholecytittis with antibitiocs and today underwent elective cholcystectomy s/p Cholecystectomy management per surgery CAD, stable continue metoprolol, lipitor hold ASA, Plavix, restart as soon as deemed safe by surgery HTN continue metoprolol HLD Statin dvt prophylaxis: at present device, chemical when surgery deemed safe
[2024-07-27] MEDS: Atorvastatin Calcium 80 MG TABLET PO (21:44)
[2024-07-27] MEDS: Docusate Sodium 100 MG CAPSULE PO (21:44)
[2024-07-28] MEDS: Acetaminophen 1,000 MG/100 ML PIGGYBACK 400 MG IV ×3 (03:42→18:39)
[2024-07-28] MEDS: Lactated Ringers 1,000 ML 50 ML IVCONT (03:43)
[2024-07-28 04:00] VITALS: BP 119/66; PULSE 70; RESP 18; TEMP 36.3; O2SAT 92
[2024-07-28 06:09] LABS: MANUAL DIFF FLAG NO
[2024-07-28 06:21] LABS: Basophils Percent Auto 0.3 % (0-2); Eosinophils Percent Auto 0.1 % (0-4); Hematocrit 36.9 % (37.0-47.0); Hemoglobin 11.7 g/dl (12.0-16.0); Imm Gran Abs Auto 0.07 X10*3/uL (0.00-0.03); Imm Gran Pct Auto 0.6 % (0.0-0.4); Lymphocytes Absolute Auto 0.8 X10*3/uL (1.2-4.9); Lymphocytes Percent Auto 6.8 % (20-40); Mean Corpuscular HGB Conc 31.7 g/dl (31.0-35.0); Mean Corpuscular Hemoglobin 27.3 pg (27.0-33.0); Mean Platelet Volume 10.9 fL (9.4-12.3); Monocytes Absolute Auto 1.3 X10*3/uL (0.1-1.2); Monocytes Percent Auto 10.5 % (2-11); Neutrophils Absolute Auto 9.8 x10*3/uL (2.0-8.3); Neutrophils Percent Auto 81.7 % (45-73); Platelet Count 263 X10*3/uL (160-400); Red Blood Count 4.29 X10*6/uL (4.20-5.50); Red Cell Distribution Width 14.2 % (11.0-16.0)
--- NOTE | 2024-07-28 07:33 | P.PNGS_ITS ---
Subjective Subjective Date of Service: 07/28/24 <Minna Miles PA-C - Last Filed: 07/28/24 07:37> 07/28/24 <Fermín Oh MD - Last Filed: 07/28/24 07:52> Interval history: C/o pain at incision sites but overall comfortable with IV tylenol and oxycodone and has been OOB twice. Tolerated dinner last night. <Minna Miles PA-C - Last Filed: 07/28/24 07:37> Physical Exam 2 Vital Signs: Vital Signs: Last Vital Signs Temp 97.4 F 07/28/24 04:00 Pulse 70 07/28/24 04:00 Resp 18 07/28/24 04:00 BP 119/66 07/28/24 04:00 Pulse Ox 92 07/28/24 04:00 O2 Del Method Room Air 07/28/24 04:00 O2 Flow Rate 2 07/27/24 15:24 BMI result Body Mass Index 27.4 <Minna Miles PA-C - Last Filed: 07/28/24 07:37> Const: General: comfortable, no acute distress and alert <Minna Miles PA-C - Last Filed: 07/28/24 07:37> Orientation/consciousness: patient oriented x3 <CHRIS Banks Last Filed: 07/28/24 07:37> Resp: Effort & Inspection: normal respiratory effort <CHRIS Banks Last Filed: 07/28/24 07:37> GI: Other: SOHAIL drain serosanguineous output <CHRIS Banks Last Filed: 07/28/24 07:37> Inspection: No distended and Yes incision (dressings clean and intact ) < CHRIS Banks Last Filed: 07/28/24 07:37> Palpation (GI): Soft to palpation, Tenderness to palpation present (GI) (incisional) and no guarding <CHRIS Banks Last Filed: 07/28/24 07:37> Skin: General skin exam: no rashes or lesions noted and no jaundice < CHRIS Banks Last Filed: 07/28/24 07:37> Neuro: General: patient oriented x3 and moves all extremities <Minna Miles PA-C - Last Filed: 07/28/24 07:37> Objective Data Active Medications Al Hydroxide/Mg Hydroxide (Magnesium Hydrox/Alum Hydrox 30 Ml Oral.Susp) 30 ml PO Q6H PRN PRN Reason: heartburn Atorvastatin Calcium (Atorvastatin Calcium 80 Mg Tablet) 80 mg PO BEDTIME [facility] Last Admin: 07/27/24 21:44 Dose: 80 mg Documented By: ALICIA Calcium Carbonate (Calcium Carbonate 750 Mg Tab.Chew) 750 mg PO Q6H PRN PRN Reason: Heartburn Clopidogrel Bisulfate (Clopidogrel Bisulfate 75 Mg Tablet) 75 mg PO DAILY [facility] Docusate Sodium (Docusate Sodium 100 Mg Capsule) 100 mg PO BEDTIME [facility] Last Admin: 07/27/24 21:44 Dose: 100 mg Documented By: ALICIA Acetaminophen (Ofirmev) 1,000 mg in 100 mls @ 400 mls/hr IV Q6H [facility] Last Infusion: 07/28/24 03:58 Dose: Infused Documented By: ALICIA Melatonin (Melatonin 3 Mg Tablet) 6 mg PO BEDTIME PRN PRN Reason: Insomnia Metoprolol Succinate (Metoprolol Succinate Er 25 Mg Tab.Er.24h) 25 mg PO DAILY [facility]; Protocol Morphine Sulfate (Morphine Sulfate 4 Mg/Ml Cartridge) 3 mg IVPUSH Q3H PRN; Protocol PRN Reason: Pain, Severe (Pain Scale 7-10) Last Admin: 07/27/24 16:42 Dose: 3 mg Documented By: SUZANNE Naloxone HCl (Naloxone Hcl 0.4 Mg/Ml Vial) 0.04 mg IVPUSH Q5M PRN PRN Reason: Excessive sedation or RR < 8 Ondansetron HCl (Ondansetron Hcl 4 Mg/2 Ml Vial) 4 mg IVPUSH Q8H PRN PRN Reason: Nausea and Vomiting Oxycodone HCl (Oxycodone Hcl Immed Release 5 Mg Tablet) 5 mg PO Q4H PRN PRN Reason: Pain, Severe (Pain Scale 7-10) Last Admin: 07/27/24 14:16 Dose: 5 mg Documented By: GISSELL Polyethylene Glycol (Polyethylene Glycol 3350 17 Gm Powd.Pack) 17 gm PO DAILY PRN PRN Reason: constipation Sodium Chloride (0.9 % Sodium Chloride Flush 3 Ml Syringe) 3 ml IVFLUSH QSHIFT [facility] Last Admin: 07/28/24 01:04 Dose: Not Given Documented By: ALICIA Non-Admin Reason: IV Running <Minna Miles PA-C - Last Filed: 07/28/24 07:37> Labs CBC & Chem 7: 07/28/24 06:08 <Minna Miles PA-C - Last Filed: 07/28/24 07:37> Labs: Laboratory Results - last 24 hr 07/27/24 07/28/24 07:18 06:08 MCV 86.0 MCH 27.3 MCHC 31.7 RDW 14.2 Plt Count 263 MPV 10.9 Immature Gran % (Auto) 0.6 H Neut % (Auto) 81.7 H Lymph % (Auto) 6.8 L [place] % (Auto) 10.5 Eos % (Auto) 0.1 Baso % (Auto) 0.3 Lymph # (Auto) 0.8 L [place] # (Auto) 1.3 H Eos # (Auto) 0.0 Baso # (Auto) 0.0 Abs Immat Gran (auto) 0.07 H Absolute Neuts (auto) 9.8 H Absolute Nucleated RBC 0.000 Nucleated RBC % (auto) 0.0 Blood Type O Negative Antibody Screen NEGATIVE <Minna Miles PA-C - Last Filed: 07/28/24 07:37> Procedures Date of Service Date of Service: 07/28/24 <Minna Miles PA-C - Last Filed: 07/28/24 07:37> 07/28/24 <Fermín Oh MD - Last Filed: 07/28/24 07:52> Progress Note: A&P Assessment and plan (1) S/P cholecystectomy: Status: Acute <Minna Miles PA-C - Last Filed: 07/28/24 07:37> Assessment and Plan: Feels well Had a good night Tolerating liquids SOHAIL drain serosanguineous Seems to have good pain control Diet as tolerated Doing well overall clinically Ambulate, incentive spirometry Pain management Seen and examined independently <Fermín Oh MD - Last Filed: 07/28/24 07:52> Assessment and Plan: POd #1 s/p attempted lap converted to open subtotal fenestrating cholecystectomy. Found to have severe thickening of the gallbladder wall, hydropic gallbladder, markedly indurated neck and duodenum thickly adherent to the neck of the gallbladder. Overall doing well post op, comfortable, tolerating diet. VSS. Abd exam benign with appropriate post op tenderness. SOHAIL drain output nonbilious. Remain inpatient another 1-2 days for pain control, monitoring of SOHAIL output. PT consult for dispo planning. Resume plavix today. Hospitalists following. <Minna Miles PA-C - Last Filed: 07/28/24 07:37> Time Spent With Patient Time: Total time managing care of this patient today ____ minutes. <CHRIS Banks Last Filed: 07/28/24 07:37> Quality Stroke Does the patient have a stroke diagnosis?: No <CHRIS Banks Last Filed: 07/28/24 07:37> VTE Prior VTE?: No <CHRIS Banks Last Filed: 07/28/24 07:37> VTE Risk Level:: Medical - moderate - high <CHRIS Banks Last Filed: 07/28/24 07:37> VTE Device Contraindication: N/A - Device Ordered <Minna Miles PA-C - Last Filed: 07/28/24 07:37> VTE Drug Contraindication: Treatment Not Indicated <CHRIS Banks Last Filed: 07/28/24 07:37>
[2024-07-28 07:50] VITALS: BP 116/62; PULSE 68; RESP 18; TEMP 36.2; O2SAT 91
--- NOTE | 2024-07-28 08:05 | HO.POSTANES ---
Post Anesthesia Evaluation Post Anesthesia Evaluation Date of Service: 07/28/24 Vital Signs: Vital Signs Temp Pulse Resp BP Pulse Ox O2 Del Method 07/28/24 07:50 97.1 F 68 18 116/62 91 L Room Air 07/28/24 04:00 97.4 F 70 18 119/66 92 Room Air Anesthesia: General Endotracheal-GETA Mental Status: Awake Pain Control: Satisfactory Nausea/Vomiting: None Hydration: Adequate Anesthesia-Related Issues: No Anes. Related Issues
--- NOTE | 2024-07-28 08:45 | HO.PM.IMPN ---
Subjective Subjective Date of Service: 07/28/24 Interval History: f/u on med consult for cad, htn, had open cholecystectomy yesterday feels better, tolerating liquid pain is reasonably controlled Physical Exam Vital Signs: Vital Signs: Last Vital Signs Temp 97.1 F 07/28/24 07:50 Pulse 68 07/28/24 07:50 Resp 18 07/28/24 07:50 BP 116/62 07/28/24 07:50 Pulse Ox 91 L 07/28/24 07:50 O2 Del Method Room Air 07/28/24 07:50 O2 Flow Rate 2 07/27/24 15:24 BMI result Body Mass Index 27.4 Const: Other: General: AO X 3, no acute distress Resp: CTA bilateral CVS: S1,S2,RRR GI: +BS, tenderness around incision, no distention Skin: No rash Neuro: motor grossly intact Psych: appropriate affect Objective Data Active Medications Al Hydroxide/Mg Hydroxide (Magnesium Hydrox/Alum Hydrox 30 Ml Oral.Susp) 30 ml PO Q6H PRN PRN Reason: heartburn Atorvastatin Calcium (Atorvastatin Calcium 80 Mg Tablet) 80 mg PO BEDTIME [facility] Last Admin: 07/27/24 21:44 Dose: 80 mg Documented By: ALICIA Calcium Carbonate (Calcium Carbonate 750 Mg Tab.Chew) 750 mg PO Q6H PRN PRN Reason: Heartburn Clopidogrel Bisulfate (Clopidogrel Bisulfate 75 Mg Tablet) 75 mg PO DAILY [facility] Docusate Sodium (Docusate Sodium 100 Mg Capsule) 100 mg PO BEDTIME [facility] Last Admin: 07/27/24 21:44 Dose: 100 mg Documented By: ALICIA Acetaminophen (Ofirmev) 1,000 mg in 100 mls @ 400 mls/hr IV Q6H [facility] Last Infusion: 07/28/24 03:58 Dose: Infused Documented By: ALICIA Melatonin (Melatonin 3 Mg Tablet) 6 mg PO BEDTIME PRN PRN Reason: Insomnia Metoprolol Succinate (Metoprolol Succinate Er 25 Mg Tab.Er.24h) 25 mg PO DAILY [facility]; Protocol Morphine Sulfate (Morphine Sulfate 4 Mg/Ml Cartridge) 3 mg IVPUSH Q3H PRN; Protocol PRN Reason: Pain, Severe (Pain Scale 7-10) Last Admin: 07/27/24 16:42 Dose: 3 mg Documented By: SUZANNE Naloxone HCl (Naloxone Hcl 0.4 Mg/Ml Vial) 0.04 mg IVPUSH Q5M PRN PRN Reason: Excessive sedation or RR < 8 Ondansetron HCl (Ondansetron Hcl 4 Mg/2 Ml Vial) 4 mg IVPUSH Q8H PRN PRN Reason: Nausea and Vomiting Oxycodone HCl (Oxycodone Hcl Immed Release 5 Mg Tablet) 5 mg PO Q4H PRN PRN Reason: Pain, Severe (Pain Scale 7-10) Last Admin: 07/27/24 14:16 Dose: 5 mg Documented By: GISSELL Polyethylene Glycol (Polyethylene Glycol 3350 17 Gm Powd.Pack) 17 gm PO DAILY PRN PRN Reason: constipation Sodium Chloride (0.9 % Sodium Chloride Flush 3 Ml Syringe) 3 ml IVFLUSH QSHIFT [facility] Last Admin: 07/28/24 01:04 Dose: Not Given Documented By: ALICIA Non-Admin Reason: IV Running Labs 07/28/24 06:08 Labs: Laboratory Results - last 24 hr 07/28/24 06:08 MCV 86.0 MCH 27.3 MCHC 31.7 RDW 14.2 Plt Count 263 MPV 10.9 Immature Gran % (Auto) 0.6 H Neut % (Auto) 81.7 H Lymph % (Auto) 6.8 L [place] % (Auto) 10.5 Eos % (Auto) 0.1 Baso % (Auto) 0.3 Lymph # (Auto) 0.8 L [place] # (Auto) 1.3 H Eos # (Auto) 0.0 Baso # (Auto) 0.0 Abs Immat Gran (auto) 0.07 H Absolute Neuts (auto) 9.8 H Absolute Nucleated RBC 0.000 Nucleated RBC % (auto) 0.0 Assessment and Plan (1) Coronary artery disease: Status: Acute Plan 74-year-old female with history of coronary artery disease with h/o posterior STEMI s/p POBA and IDALIA to LCx 04/2020, h/o complete heart block s/p pacemaker, ischemic cardiomyopathy, htn, and former smoker with 40+ pack year history who quit 4 years ago. In april of this year was treated for acute cholecytittis with antibitiocs and today underwent elective cholcystectomy s/p Cholecystectomy 07/27, doing well management per surgery IS use CAD, stable continue metoprolol, lipitor hold ASA, Plavix, restart as soon as deemed safe by surgery HTN,controlled continue metoprolol HLD Statin dvt prophylaxis: at present device, chemical when surgery deemed safe out of bed, ambulate Quality Stroke Does the patient have a stroke diagnosis?: No VTE Prior VTE?: No VTE Risk Level:: Medical - moderate - high VTE Device Contraindication: N/A - Device Ordered VTE Drug Contraindication: Treatment Not Indicated
[2024-07-28 09:03] VITALS: BP 116/62; PULSE 68
[2024-07-28] MEDS: Metoprolol Succinate ER 25 MG TAB.ER.24H PO (09:03)
[2024-07-28] MEDS: Clopidogrel Bisulfate 75 MG TABLET PO (09:03)
[2024-07-28] MEDS: oxyCODONE HCl Immed Release 5 MG TABLET PO ×2 (09:08→13:25)
[2024-07-28 15:51] VITALS: BP 104/56; PULSE 71; RESP 16; TEMP 37.3; O2SAT 89
--- NOTE | 2024-07-28 16:09 | MHC.CM.PN ---
PT REPORTS SHE LIVES WITH HER AND IS INDEPENDENT WITH CARE SHE USES A CANE PRN AND HAS NO SERVICES COPY OF HCP REQUESTED PCP: ROSEY YU [facility]MM DELIVERED DCP: HOME, TO TRANSPORT
[2024-07-28 17:10] VITALS: O2SAT 91
[2024-07-28] MEDS: 0.9 % Sodium Chloride Flush 3 ML SYRINGE IVFLUSH ×2 (18:47→20:41)
--- NOTE | 2024-07-28 19:16 | PC.NURSE ---
Pt medicated with diaudid @ 0800. Became very sedated and difficult to arouse. O2 sats 89% on 4L. Congested cough. Stated, I don't feel well. Reported dizziness. Encouraged incentive spirometer. Vitals otherwise stable. RENARD Borrero notified. Pt OOB to chair with difficulty. [place] very dizzy. Only able to take a few steps. o2 sat 91% on 4L. More alert this evening, but still dizzy with standing. Able to ambulated 4 feet to commode. Voided 100cc. Encouraging Po fluids and Incentive spirometer. RENARD Borrero updated.
[2024-07-28 20:19] VITALS: BP 113/56; PULSE 77; RESP 18; TEMP 37.3; O2SAT 88
[2024-07-28] MEDS: Docusate Sodium 100 MG CAPSULE PO (20:41)
[2024-07-28] MEDS: Atorvastatin Calcium 80 MG TABLET PO (20:41)
[2024-07-29] MEDS: Acetaminophen 1,000 MG/100 ML PIGGYBACK 400 MG IV ×4 (01:07→23:00)
[2024-07-29 03:18] VITALS: BP 113/56; PULSE 71; RESP 18; TEMP 36.5; O2SAT 98
[2024-07-29 07:48] VITALS: BP 145/65; PULSE 68; RESP 14; TEMP 36.9; O2SAT 95
--- NOTE | 2024-07-29 08:10 | PM.PNGS ---
Subjective Subjective Date of Service: 07/29/24 <Minna Miles PA-C - Last Filed: 07/29/24 08:13> 07/29/24 <Fermín Oh MD - Last Filed: 07/29/24 09:07> Interval history: Feels sore at incision site. Has been OOB and ambulating. Tolerating solid diet but intake low. <Minna Miles PA-C - Last Filed: 07/29/24 08:13> Physical Exam Vital Signs: Vital Signs: Last Vital Signs Temp 98.4 F 07/29/24 07:48 Pulse 68 07/29/24 07:48 Resp 14 07/29/24 07:48 BP 145/65 H 07/29/24 07:48 Pulse Ox 95 07/29/24 07:48 O2 Del Method Room Air 07/29/24 07:48 O2 Flow Rate 2 07/27/24 15:24 BMI result Body Mass Index 27.4 <Minna Miles PA-C - Last Filed: 07/29/24 08:13> Const: General: comfortable, no acute distress and alert <Minna Miles PA-C - Last Filed: 07/29/24 08:13> Orientation/consciousness: patient oriented x3 <CHRIS Banks Last Filed: 07/29/24 08:13> Resp: Effort & Inspection: normal respiratory effort <Minna Miles PA-C - Last Filed: 07/29/24 08:13> GI: Other: SOHAIL drain output scant and serosanguineous <Minna Miles PA-C - Last Filed: 07/29/24 08:13> Inspection: Yes distended (mild ) and Yes incision (clean) <CHRIS Banks Last Filed: 07/29/24 08:13> Palpation (GI): Soft to palpation, Tenderness to palpation present (GI) (mild incisional) and no guarding <CHRIS Banks Last Filed: 07/29/24 08:13> Skin: General skin exam: no rashes or lesions noted and no jaundice <CHRIS Banks Last Filed: 07/29/24 08:13> Neuro: General: patient oriented x3 and moves all extremities <Minna Miles PA-C - Last Filed: 07/29/24 08:13> Objective Data Active Medications Al Hydroxide/Mg Hydroxide (Magnesium Hydrox/Alum Hydrox 30 Ml Oral.Susp) 30 ml PO Q6H PRN PRN Reason: heartburn Atorvastatin Calcium (Atorvastatin Calcium 80 Mg Tablet) 80 mg PO BEDTIME [facility] Last Admin: 07/28/24 20:41 Dose: 80 mg Documented By: ALICIA Calcium Carbonate (Calcium Carbonate 750 Mg Tab.Chew) 750 mg PO Q6H PRN PRN Reason: Heartburn Clopidogrel Bisulfate (Clopidogrel Bisulfate 75 Mg Tablet) 75 mg PO DAILY [facility] Last Admin: 07/28/24 09:03 Dose: 75 mg Documented By: VAL Docusate Sodium (Docusate Sodium 100 Mg Capsule) 100 mg PO BEDTIME [facility] Last Admin: 07/28/24 20:41 Dose: 100 mg Documented By: ALICIA Acetaminophen (Ofirmev) 1,000 mg in 100 mls @ 400 mls/hr IV Q6H [facility] Last Admin: 07/29/24 06:42 Dose: 400 mls/hr Documented By: ALICIA Melatonin (Melatonin 3 Mg Tablet) 6 mg PO BEDTIME PRN PRN Reason: Insomnia Metoprolol Succinate (Metoprolol Succinate Er 25 Mg Tab.Er.24h) 25 mg PO DAILY [facility]; Protocol Last Admin: 07/28/24 09:03 Dose: 25 mg Documented By: VAL Morphine Sulfate (Morphine Sulfate 4 Mg/Ml Cartridge) 3 mg IVPUSH Q3H PRN; Protocol PRN Reason: Pain, Severe (Pain Scale 7-10) Last Admin: 07/27/24 16:42 Dose: 3 mg Documented By: SUZANNE Naloxone HCl (Naloxone Hcl 0.4 Mg/Ml Vial) 0.04 mg IVPUSH Q5M PRN PRN Reason: Excessive sedation or RR < 8 Ondansetron HCl (Ondansetron Hcl 4 Mg/2 Ml Vial) 4 mg IVPUSH Q8H PRN PRN Reason: Nausea and Vomiting Oxycodone HCl (Oxycodone Hcl Immed Release 5 Mg Tablet) 5 mg PO Q4H PRN PRN Reason: Pain, Severe (Pain Scale 7-10) Last Admin: 07/28/24 13:25 Dose: 5 mg Documented By: HARDIK Polyethylene Glycol (Polyethylene Glycol 3350 17 Gm Powd.Pack) 17 gm PO DAILY PRN PRN Reason: constipation Sodium Chloride (0.9 % Sodium Chloride Flush 3 Ml Syringe) 3 ml IVFLUSH QSHIFT [facility] Last Admin: 07/28/24 20:41 Dose: 3 ml Documented By: ALICIA <Minna Miles PA-C - Last Filed: 07/29/24 08:13> Labs CBC & Chem 7: 07/28/24 06:08 <Minna Miles PA-C - Last Filed: 07/29/24 08:13> Procedures Date of Service Date of Service: 07/29/24 <CHRIS Banks Last Filed: 07/29/24 08:13> 07/29/24 <Fermín Oh MD - Last Filed: 07/29/24 09:07> Progress Note: A&P Assessment and plan (1) S/P cholecystectomy: Status: Acute <Minna Miles PA-C - Last Filed: 07/29/24 08:13> Assessment and Plan: Sore at incision Has been ambulating Tolerating regular diet SOHAIL drain scanty, serosanguineous Incision looks clean and dry Abdomen is soft Clinically looks well DC home once with good pain control on oral meds She says she does not need a visiting nurse Doing well overall Seen and examined independently <Fermín Oh MD - Last Filed: 07/29/24 09:07> (2) Acute cholecystitis: Status: Acute <Minna Miles PA-C - Last Filed: 07/29/24 08:13> Assessment and Plan: POD #2 s/p attempted lap converted to open subtotal fenestrating cholecystectomy. Found to have severe thickening of the gallbladder wall, hydropic gallbladder, markedly indurated neck and duodenum thickly adherent to the neck of the gallbladder. Continues to do well post op, comfortable, tolerating diet. VSS. Abd exam benign with clean incision, mildly distended this am. SOHAIL drain output nonbilious. Cont current plan of pain control, diet as tolerated. Possibly home tomorrow. Will be discharged with SOHAIL drain, arrange VNA services. Increase activity, ambulation. <Minna Miles PA-C - Last Filed: 07/29/24 08:13> Time Spent With Patient Time: Total time managing care of this patient today ____ minutes. <Minna Miles PA-C - Last Filed: 07/29/24 08:13> Quality Stroke Does the patient have a stroke diagnosis?: No <Minna Miles PA-C - Last Filed: 07/29/24 08:13> VTE Prior VTE?: No <Minna Miles PA-C - Last Filed: 07/29/24 08:13> VTE Risk Level:: Medical - moderate - high <Minna Miles PA-C - Last Filed: 07/29/24 08:13> VTE Device Contraindication: N/A - Device Ordered <Minna Miles PA-C - Last Filed: 07/29/24 08:13> VTE Drug Contraindication: Treatment Not Indicated <Minna Miles PA-C - Last Filed: 07/29/24 08:13>
--- NOTE | 2024-07-29 08:34 | HO.PM.IMPN ---
Subjective Subjective Date of Service: 07/29/24 Interval History: f/u on med consult for cad, htn, had open cholecystectomy / feels better, tolerating present diet pain is reasonably controlled Physical Exam Vital Signs: Vital Signs: Last Vital Signs Temp 98.4 F 07/29/24 07:48 Pulse 68 07/29/24 07:48 Resp 14 07/29/24 07:48 BP 145/65 H 07/29/24 07:48 Pulse Ox 95 07/29/24 07:48 O2 Del Method Room Air 07/29/24 07:48 O2 Flow Rate 2 07/27/24 15:24 BMI result Body Mass Index 27.4 Const: Other: General: AO X 3, no acute distress Resp: CTA bilateral CVS: S1,S2,RRR GI: +BS, tenderness around incision, no distention, dominick drain in Skin: No rash Neuro: motor grossly intact Psych: appropriate affect Objective Data Active Medications Al Hydroxide/Mg Hydroxide (Magnesium Hydrox/Alum Hydrox 30 Ml Oral.Susp) 30 ml PO Q6H PRN PRN Reason: heartburn Atorvastatin Calcium (Atorvastatin Calcium 80 Mg Tablet) 80 mg PO BEDTIME [facility] Last Admin: 07/28/24 20:41 Dose: 80 mg Documented By: ALICIA Calcium Carbonate (Calcium Carbonate 750 Mg Tab.Chew) 750 mg PO Q6H PRN PRN Reason: Heartburn Clopidogrel Bisulfate (Clopidogrel Bisulfate 75 Mg Tablet) 75 mg PO DAILY [facility] Last Admin: 07/28/24 09:03 Dose: 75 mg Documented By: VAL Docusate Sodium (Docusate Sodium 100 Mg Capsule) 100 mg PO BEDTIME [facility] Last Admin: 07/28/24 20:41 Dose: 100 mg Documented By: ALICIA Acetaminophen (Ofirmev) 1,000 mg in 100 mls @ 400 mls/hr IV Q6H [facility] Last Admin: 07/29/24 06:42 Dose: 400 mls/hr Documented By: ALICIA Melatonin (Melatonin 3 Mg Tablet) 6 mg PO BEDTIME PRN PRN Reason: Insomnia Metoprolol Succinate (Metoprolol Succinate Er 25 Mg Tab.Er.24h) 25 mg PO DAILY [facility]; Protocol Last Admin: 07/28/24 09:03 Dose: 25 mg Documented By: VAL Morphine Sulfate (Morphine Sulfate 4 Mg/Ml Cartridge) 3 mg IVPUSH Q3H PRN; Protocol PRN Reason: Pain, Severe (Pain Scale 7-10) Last Admin: 07/27/24 16:42 Dose: 3 mg Documented By: SUZANNE Naloxone HCl (Naloxone Hcl 0.4 Mg/Ml Vial) 0.04 mg IVPUSH Q5M PRN PRN Reason: Excessive sedation or RR < 8 Ondansetron HCl (Ondansetron Hcl 4 Mg/2 Ml Vial) 4 mg IVPUSH Q8H PRN PRN Reason: Nausea and Vomiting Oxycodone HCl (Oxycodone Hcl Immed Release 5 Mg Tablet) 5 mg PO Q4H PRN PRN Reason: Pain, Severe (Pain Scale 7-10) Last Admin: 07/28/24 13:25 Dose: 5 mg Documented By: HARDIK Polyethylene Glycol (Polyethylene Glycol 3350 17 Gm Powd.Pack) 17 gm PO DAILY PRN PRN Reason: constipation Sodium Chloride (0.9 % Sodium Chloride Flush 3 Ml Syringe) 3 ml IVFLUSH QSHIFT [facility] Last Admin: 07/28/24 20:41 Dose: 3 ml Documented By: LYSZ Labs 07/28/24 06:08 Assessment and Plan (1) Coronary artery disease: Status: Acute Plan 74-year-old female with history of coronary artery disease with h/o posterior STEMI s/p POBA and IDALIA to LCx 04/2020, h/o complete heart block s/p pacemaker, ischemic cardiomyopathy, htn, and former smoker with 40+ pack year history who quit 4 years ago. In april of this year was treated for acute cholecytittis with antibitiocs and today underwent elective cholcystectomy s/p Cholecystectomy 07/27, doing well management per surgery IS use CAD, stable continue metoprolol, lipitor resume ASA, Plavix, and monitor HTN,controlled continue metoprolol HLD Statin dvt prophylaxis: at present device, chemical when surgery deemed safe out of bed, ambulate from medical standpoint ok to tx Quality Stroke Does the patient have a stroke diagnosis?: No VTE Prior VTE?: No VTE Risk Level:: Medical - moderate - high VTE Device Contraindication: N/A - Device Ordered VTE Drug Contraindication: Treatment Not Indicated
[2024-07-29] MEDS: 0.9 % Sodium Chloride Flush 3 ML SYRINGE IVFLUSH ×3 (09:34→22:53)
[2024-07-29] MEDS: Aspirin Enteric Coated 81 MG TABLET.DR PO (09:35)
[2024-07-29] MEDS: oxyCODONE HCl Immed Release 5 MG TABLET PO (09:35)
[2024-07-29 09:36] VITALS: BP 128/59; PULSE 80
[2024-07-29] MEDS: Clopidogrel Bisulfate 75 MG TABLET PO (09:36)
[2024-07-29] MEDS: Metoprolol Succinate ER 25 MG TAB.ER.24H PO (09:36)
[2024-07-29 13:48] VITALS: BP 128/59; PULSE 80
--- NOTE | 2024-07-29 14:09 | PM.EVENT ---
Event Note Date of Service: 07/29/24 Event Note: Seen on afternoon rounds Good pain control SOHAIL drain scanty serosanguineous Tolerating diet Anicteric sclerae Abdomen is soft Looks well and able to ambulate She wants to stay another night She does not want a visiting nurse Instructed nurse to educate her on SOHAIL care I will see her in the office next Possible discharge tomorrow Time Spent With Patient Time: Total time managing care of this patient today ____ minutes.
[2024-07-29 15:23] VITALS: BP 150/69; PULSE 76; RESP 16; TEMP 36.8; O2SAT 96
[2024-07-29 20:00] VITALS: BP 116/57; PULSE 77; RESP 17; TEMP 36.7; O2SAT 92
[2024-07-29] MEDS: Docusate Sodium 100 MG CAPSULE PO (22:51)
[2024-07-29] MEDS: Atorvastatin Calcium 80 MG TABLET PO (22:51)
[2024-07-30 03:44] VITALS: BP 126/72; PULSE 73; RESP 18; TEMP 36.7; O2SAT 94
[2024-07-30] MEDS: Acetaminophen 1,000 MG/100 ML PIGGYBACK 400 MG IV (05:15)
[2024-07-30] MEDS: Clopidogrel Bisulfate 75 MG TABLET PO (07:38)
[2024-07-30] MEDS: Metoprolol Succinate ER 25 MG TAB.ER.24H PO (07:39)
[2024-07-30] MEDS: 0.9 % Sodium Chloride Flush 3 ML SYRINGE IVFLUSH (07:39)
[2024-07-30] MEDS: Aspirin Enteric Coated 81 MG TABLET.DR PO (07:39)
[2024-07-30 07:53] VITALS: BP 150/73; PULSE 67; RESP 17; TEMP 36.4; O2SAT 96
--- NOTE | 2024-07-30 08:52 | P.PNIM_ITS ---
Subjective Subjective Date of Service: 07/30/24 Interval History: f/u on med consult for cad, htn, had open cholecystectomy / feels better, tolerating regular diet pain is reasonably controlled, passsing gas and bm ready to go Physical Exam 2 Vital Signs: Vital Signs: Last Vital Signs Temp 97.5 F 07/30/24 07:53 Pulse 67 07/30/24 07:53 Resp 17 07/30/24 07:53 BP 150/73 H 07/30/24 07:53 Pulse Ox 96 07/30/24 07:53 O2 Del Method Room Air 07/30/24 07:53 O2 Flow Rate 2 07/27/24 15:24 BMI result Body Mass Index 27.4 Const: Other: General: AO X 3, no acute distress Resp: CTA bilateral CVS: S1,S2,RRR GI: +BS, tenderness around incision, no distention, dominick drain in Skin: No rash Neuro: motor grossly intact Psych: appropriate affect Objective Data Active Medications Al Hydroxide/Mg Hydroxide (Magnesium Hydrox/Alum Hydrox 30 Ml Oral.Susp) 30 ml PO Q6H PRN PRN Reason: heartburn Aspirin (Aspirin Enteric Coated 81 Mg Tablet.) 81 mg PO DAILY [facility] Last Admin: 07/30/24 07:39 Dose: 81 mg Documented By: CRUZITO Atorvastatin Calcium (Atorvastatin Calcium 80 Mg Tablet) 80 mg PO BEDTIME [facility] Last Admin: 07/29/24 22:51 Dose: 80 mg Documented By: TONY Calcium Carbonate (Calcium Carbonate 750 Mg Tab.Chew) 750 mg PO Q6H PRN PRN Reason: Heartburn Clopidogrel Bisulfate (Clopidogrel Bisulfate 75 Mg Tablet) 75 mg PO DAILY [facility] Last Admin: 07/30/24 07:38 Dose: 75 mg Documented By: CRUZITO Docusate Sodium (Docusate Sodium 100 Mg Capsule) 100 mg PO BEDTIME [facility] Last Admin: 07/29/24 22:51 Dose: 100 mg Documented By: TONY Acetaminophen (Ofirmev) 1,000 mg in 100 mls @ 400 mls/hr IV Q6H [facility] Last Infusion: 07/30/24 05:36 Dose: Infused Documented By: TONY Melatonin (Melatonin 3 Mg Tablet) 6 mg PO BEDTIME PRN PRN Reason: Insomnia Metoprolol Succinate (Metoprolol Succinate Er 25 Mg Tab.Er.24h) 25 mg PO DAILY [facility]; Protocol Last Admin: 07/30/24 07:39 Dose: 25 mg Documented By: CRUZITO Morphine Sulfate (Morphine Sulfate 4 Mg/Ml Cartridge) 3 mg IVPUSH Q3H PRN; Protocol PRN Reason: Pain, Severe (Pain Scale 7-10) Last Admin: 07/27/24 16:42 Dose: 3 mg Documented By: SUZANNE Naloxone HCl (Naloxone Hcl 0.4 Mg/Ml Vial) 0.04 mg IVPUSH Q5M PRN PRN Reason: Excessive sedation or RR < 8 Ondansetron HCl (Ondansetron Hcl 4 Mg/2 Ml Vial) 4 mg IVPUSH Q8H PRN PRN Reason: Nausea and Vomiting Oxycodone HCl (Oxycodone Hcl Immed Release 5 Mg Tablet) 5 mg PO Q4H PRN PRN Reason: Pain, Severe (Pain Scale 7-10) Last Admin: 07/29/24 09:35 Dose: 5 mg Documented By: HARDIK Polyethylene Glycol (Polyethylene Glycol 3350 17 Gm Powd.Pack) 17 gm PO DAILY PRN PRN Reason: constipation Sodium Chloride (0.9 % Sodium Chloride Flush 3 Ml Syringe) 3 ml IVFLUSH QSHIFT [facility] Last Admin: 07/30/24 07:39 Dose: 3 ml Documented By: CRUZITO Labs 07/28/24 06:08 Assessment and Plan (1) Coronary artery disease: Status: Acute Plan 74-year-old female with history of coronary artery disease with h/o posterior STEMI s/p POBA and IDALIA to LCx 04/2020, h/o complete heart block s/p pacemaker, ischemic cardiomyopathy, htn, and former smoker with 40+ pack year history who quit 4 years ago. In april of this year was treated for acute cholecytittis with antibitiocs and today underwent elective cholcystectomy s/p Cholecystectomy 07/27, doing well management per surgery IS use CAD, stable continue metoprolol, lipitor continue ASA, Plavix, and monitor HTN continue metoprolol HLD Statin dvt prophylaxis: at present device, chemical when surgery deemed safe out of bed, ambulate from medical standpoint ok to dc, singing off Quality Stroke Does the patient have a stroke diagnosis?: No VTE Prior VTE?: No VTE Risk Level:: Medical - moderate - high VTE Device Contraindication: N/A - Device Ordered VTE Drug Contraindication: Treatment Not Indicated
--- NOTE | 2024-07-30 09:23 | P.PNGS_ITS ---
Subjective Subjective Date of Service: 07/30/24 Interval history: Patient reports feeling improved this morning with only minimal incisional pain. She was instructed on drain care and feels comfortable doing this. She tolerated a regular diet without nausea or vomiting. Physical Exam 2 Vital Signs: Vital Signs: Last Vital Signs Temp 97.5 F 07/30/24 07:53 Pulse 67 07/30/24 07:53 Resp 17 07/30/24 07:53 BP 150/73 H 07/30/24 07:53 Pulse Ox 96 07/30/24 07:53 O2 Del Method Room Air 07/30/24 07:53 O2 Flow Rate 2 07/27/24 15:24 BMI result Body Mass Index 27.4 Const: General: no acute distress Nutritional Appearance: well nourished Orientation/consciousness: patient oriented x3 Resp: Effort & Inspection: normal respiratory effort, no audible wheezes, no cough and no respiratory distress GI: Other: Soft and nondistended, abdominal incision is clean and intact. SOHAIL draining a small amount of serosanguineous fluid. No bilious fluid identified. Neuro: General: patient oriented x3 Extrem: Other: No edema Objective Data Active Medications Al Hydroxide/Mg Hydroxide (Magnesium Hydrox/Alum Hydrox 30 Ml Oral.Susp) 30 ml PO Q6H PRN PRN Reason: heartburn Aspirin (Aspirin Enteric Coated 81 Mg Tablet.) 81 mg PO DAILY [facility] Last Admin: 07/30/24 07:39 Dose: 81 mg Documented By: CRUZITO Atorvastatin Calcium (Atorvastatin Calcium 80 Mg Tablet) 80 mg PO BEDTIME [facility] Last Admin: 07/29/24 22:51 Dose: 80 mg Documented By: TONY Calcium Carbonate (Calcium Carbonate 750 Mg Tab.Chew) 750 mg PO Q6H PRN PRN Reason: Heartburn Clopidogrel Bisulfate (Clopidogrel Bisulfate 75 Mg Tablet) 75 mg PO DAILY [facility] Last Admin: 07/30/24 07:38 Dose: 75 mg Documented By: CRUZITO Docusate Sodium (Docusate Sodium 100 Mg Capsule) 100 mg PO BEDTIME [facility] Last Admin: 07/29/24 22:51 Dose: 100 mg Documented By: TONY Acetaminophen (Ofirmev) 1,000 mg in 100 mls @ 400 mls/hr IV Q6H [facility] Last Infusion: 07/30/24 05:36 Dose: Infused Documented By: TONY Melatonin (Melatonin 3 Mg Tablet) 6 mg PO BEDTIME PRN PRN Reason: Insomnia Metoprolol Succinate (Metoprolol Succinate Er 25 Mg Tab.Er.24h) 25 mg PO DAILY [facility]; Protocol Last Admin: 07/30/24 07:39 Dose: 25 mg Documented By: CRUZITO Morphine Sulfate (Morphine Sulfate 4 Mg/Ml Cartridge) 3 mg IVPUSH Q3H PRN; Protocol PRN Reason: Pain, Severe (Pain Scale 7-10) Last Admin: 07/27/24 16:42 Dose: 3 mg Documented By: SUZANNE Naloxone HCl (Naloxone Hcl 0.4 Mg/Ml Vial) 0.04 mg IVPUSH Q5M PRN PRN Reason: Excessive sedation or RR < 8 Ondansetron HCl (Ondansetron Hcl 4 Mg/2 Ml Vial) 4 mg IVPUSH Q8H PRN PRN Reason: Nausea and Vomiting Oxycodone HCl (Oxycodone Hcl Immed Release 5 Mg Tablet) 5 mg PO Q4H PRN PRN Reason: Pain, Severe (Pain Scale 7-10) Last Admin: 07/29/24 09:35 Dose: 5 mg Documented By: HARDIK Polyethylene Glycol (Polyethylene Glycol 3350 17 Gm Powd.Pack) 17 gm PO DAILY PRN PRN Reason: constipation Sodium Chloride (0.9 % Sodium Chloride Flush 3 Ml [facility]ringe) [facility] Admin: 07/30/24 07:39 Dose: 3 ml Documented By: CRUZITO Labs 07/28/24 06:08 Procedures Date of Service Date of Service: 07/30/24 Progress Note: A&P Assessment and plan (1) Acute cholecystitis: Status: Acute (2) S/P cholecystectomy: Status: Acute (3) Gallstones: Status: Acute Plan POD 3 following laparoscopic converted to open cholecystectomy with subtotal cholecystectomy and SOHAIL drain. She feels improved this morning and is tolerating a regular diet. She feels comfortable with being discharged to home. She will follow-up with Dr. Oh next week for SOHAIL drain removal. I recommended she record output from the SOHAIL drain on a daily basis. She is welcome to call sooner for any new concerns. Time Spent With Patient Time: Total time managing care of this patient today ____ minutes. Quality Stroke Does the patient have a stroke diagnosis?: No VTE Prior VTE?: No VTE Risk Level:: Medical - moderate - high VTE Device Contraindication: N/A - Device Ordered VTE Drug Contraindication: Treatment Not Indicated
--- NOTE | 2024-07-30 10:01 | MHC.CM.PN ---
PT TO DC HOME TODAY WITH NO SERVICES TO TRANSPORT
[2024-07-30] MEDS: oxyCODONE HCl Immed Release 5 MG TABLET PO (10:28)
--- NOTE | 2024-07-30 11:57 | PM.DS ---
DS: Providers Provider Date of Service: 07/30/24 Date of admission: 07/27/24 10:02 Date of discharge: 07/30/24 Primary care physician: Ghassan Anton MD Attending physician on admission: Fermín Oh Consults: 07/27/24 15:19 Consult to Hospitalist Routine Comment: Consulting Provider: [facility] Hospitalists Reason For Exam: s/p cholecystectomy,CAD,hx of STEMI,cardiomyopathy DS: Diagnosis Discharge Diagnosis (1) S/P cholecystectomy: Status: Acute (2) Acute cholecystitis: Status: Acute DS: Summary Hospital Course Hospital Course: HPI AT ADMISSION: The patient is a female with known gallstones, who has been complaining of [id number] right upper quadrant pain. She has known coronary artery disease and cardiomyopathy. However, she says that she really wanted to proceed with cholecystectomy because of worsening symptoms. She understood the technique of the planned procedure as well as the risks, benefits, and alternatives. HOSPITAL COURSE: On 07/27/24, an attempted laparoscopic cholecystectomy, converted to open subtotal fenestrating cholecystectomy was performed by Dr. Oh without complication. She was found to have acute cholecystitis severe thickening of the gallbladder wall, hydropic gallbladder, markedly indurated neck and duodenum thickly adherent to the neck of the gallbladder, with very poor planes. The patient tolerated the procedure well. She was admitted following for pain control. Hospitalist consult was obtained for management of her medical comorbidities. She had an uncomplicated but slow recovery course necessitating IV analgesics with increasing activity as tolerated. Her plavix was resumed on 07/28/24. On the day of discharge, she felt well and was tolerating a solid diet without nausea or vomiting, had good pain control and was ambulating without difficulty. She was hemodynamically stable. Her abdomen was benign with appropriate post op tenderness and clean incisions. SOHAIL drain had low serosanguineous drainage. She felt ready for discharge. She was discharged to home on 07/30/24 in stable condition. She was educated on drain care. She did not want VNA for drain care. She is to follow up in the office in 2 weeks. Status at Discharge Overall status at discharge: patient is progressing back to baseline Time Attestation Discharge Coordination Time (in mins): 35 Quality: Safe Use of Opioids Does Pt have an Active Cancer Diagnosis on the Problem List?: No Quality: Stroke Does the patient have a stroke diagnosis?: No Physical Exam Vital Signs: Vital Signs: Last Vital Signs Temp 98.4 F 07/29/24 07:48 Pulse 80 07/29/24 09:36 Resp 14 07/29/24 07:48 BP 128/59 L 07/29/24 09:36 Pulse Ox 95 07/29/24 07:48 O2 Del Method Room Air 07/29/24 07:48 O2 Flow Rate 2 07/27/24 15:24 BMI result Body Mass Index 27.4 Const: General: comfortable, no acute distress and alert Orientation/consciousness: patient oriented x3 Resp: Effort & Inspection: normal respiratory effort GI: Other: SOHAIL drain serosanguineous, nonbilious incisions clean abd soft, mild incisional tenderness Skin: General skin exam: no rashes or lesions noted and no jaundice Neuro: General: patient oriented x3 and moves all extremities DS: Data Data Completed and Pending Completed studies during hospitalization [Text1]: 07/27/24 09:41 Surgical [PTH] Routine Gallbladder, cholecystectomy: Acute hemorrhagic cholecystitis and cholelithiasis. Discharge Plan Discharge Anticipated Discharge Date/Time: 07/30/24 12:17 Patient Disposition: Home, Self-Care Discharge Diagnosis: s/p open cholecystectomy Referrals: Fermín Oh MD [Physician] - 1 Week Ghassan Anton MD [Primary Care Provider] - 1 Week Discharge Medications: New docusate sodium [Colace] 100 mg capsule 100 mg PO BID PRN (Reason: constipation) Qty: 30 0RF oxycodone 5 mg tablet 5 mg PO Q4H PRN (Reason: pain (scale score 7-10)) Qty: 24 0RF Rx Instructions: Partial Fill upon patient request. (DME) Ultra-Light Rollator Misc See Rx Instructions .Route Qty: 1 0RF Rx Instructions: As directed Continued atorvastatin 80 mg tablet 80 mg PO BEDTIME aspirin [Adult Low Dose Aspirin] 81 mg tablet,delayed release (DR/EC) 81 mg PO DAILY clopidogrel 75 mg tablet 75 mg PO DAILY metoprolol succinate 25 mg tablet extended release 24 hr 25 mg PO DAILY No Action (DME) Walker See Rx Instructions .Route .MEDSUPPLY Qty: 1 0RF Rx Instructions: As directed Discharge Orders: Discharge Order (Routine); Ordered 07/30/24 Ordered By: Tony Nielsen Diet: Advance to usual diet Activity on Discharge: No heavy lifting Stand Alone Forms: Patient Portal Discharge page Print Language: French Activity Restrictions/Additional Instructions: If the incision area is tender, you may apply an ice pack for short intervals (No more than 20 minutes on, followed by at least 20 minutes off). Do not apply heat. Do not use creams, lotions, or topical antibiotics. These can cause infection or allergic reaction. Ok to shower. No tub bath. You have irene closing your incision and these will be removed approximately 10-14 days after surgery. SOHAIL drain care- empty BID and as needed. Record output and color and bring to office appointment. NO HEAVY LIFTING (>10lbs) or strenuous activity. Follow up in office with Dr. Oh next week ([phone]) to have SOHAIL drain removed Call Your Doctor If: -Your temperature exceeds 101.5? F -You experience excessive pain or swelling -You have an unexpected reaction to medication -You have excessive bleeding -You experience continued vomiting/nausea -Your incision begins to separate -Your incision shows signs of infection such as increased redness, swelling, excessive pain, drainage (light blood or clear fluid is normal) or heat Care Plan Goals: Return to baseline health and resume normal activities following recovery period. Health Concerns: gallstones, acute cholecystitis CAD, cardiomyopathy HTN Plan of Treatment: s/p open cholecystectomy SOHAIL drain f/u in office in 2 weeks Assessment: Doing well post op. Discharge Date/Time: 07/30/24 11:11
== END 2024-07-30 11:11 | disposition home or self-care (01) | DRG 415 ==
LOC: HO.SSSA 10:22 → HO.S3 15:04
PROVIDERS: Physician Assistant Surgical; Admitting Provider Surgery; PCP Internal Medicine; Visit Provider Surgery
PROC: 0FT44ZZ Resection of Gallbladder, Percutaneous Endoscopic Approach (ICD-10-PCS; CPT 47562; principal; 2024-07-27 08:50)
DX: K80.12 Calculus of gallbladder with acute and chronic cholecystitis without obstruction (principal); K82.1 Hydrops of gallbladder; I10 Essential (primary) hypertension; I25.5 Ischemic cardiomyopathy; E78.5 Hyperlipidemia, unspecified; I25.10 Atherosclerotic heart disease of native coronary artery without angina pectoris; G89.18 Other acute postprocedural pain; Z87.891 Personal history of nicotine dependence; Z95.5 Presence of coronary angioplasty implant and graft; Z79.02 Long term (current) use of antithrombotics/antiplatelets; Z79.82 Long term (current) use of aspirin; Z79.899 Other long term (current) drug therapy
CPT/HCPCS: 36415; 74177; 82565; 85025; 86850; 86900; 86901; 88304; 97162; 97530; J0131; J0665; J1100; J2003; J2270; J2405; J2704; J2795; J3010; J7120; Q9967

== ENCOUNTER → 2024-07-27 10:02 | Outpatient (BNV) | payer MEDICARE, SELFPAY | PROVIDERS: Admitting Provider Surgery; PCP Internal Medicine; Visit Provider Surgery | DX: K81.0 Acute cholecystitis (principal); Z90.49 Acquired absence of other specified parts of digestive tract; K80.20 Calculus of gallbladder without cholecystitis without obstruction | CPT/HCPCS: 99024; 99499 ==

== ENCOUNTER → 2024-07-27 10:02 | Outpatient (BNV) | payer MEDICARE, SELFPAY | PROVIDERS: Admitting Provider Surgery; PCP Internal Medicine; Visit Provider Internal Medicine | DX: K80.20 Calculus of gallbladder without cholecystitis without obstruction (principal); I25.10 Atherosclerotic heart disease of native coronary artery without angina pectoris | CPT/HCPCS: 99222; 99232 ==

== ENCOUNTER 2024-08-03 13:12 | Outpatient (AMB) | payer MEDICARE, SELFPAY ==
--- NOTE | 2024-08-03 13:33 | A.OFFVIS_ITS ---
Vital Signs 08/03/24 13:41 Weight 160 lb BP 78/52 L Blood Pressure Location Rt brachial Position Sitting Pulse 110 H Intake Visit Reasons: drain removal Intake Note: Patient here s/p open subtotal fenestrating cholecystectomy on 07-27-2024. Patient c/o: reports drain tube to be removed today. C/o stomach pain, not moving bowels well. Alternating Oxycodone with Tylenol as needed. Taking Colace. Residential Energy Auditor Required: No Accompanied by: Self / Same As Patient Allergies No Known Allergies Allergy (Mild, Verified 08/03/24 13:41) N/A HPI HPI drain removal: Details: She had undergone fenestrating subtotal cholecystectomy last July 27, 2024 and is here for a postop visit. Intraop findings showed acute and chronic cholecystitis with significant induration and inflammatory changes surrounding the neck of the gallbladder. She has been doing well at home after discharge on postop day number 3. She has good oral intake and adequate pain control. She still has a SOHAIL drain in place. The output has been serosanguineous and minimal. She says that at most, there has only been like 20 cc of output a day but the past couple of days this has been trace. [facility], [facility] Medical History Gallstones Hospital discharge follow-up Hyperkalemia Adrenal nodule History of ST elevation myocardial infarction (STEMI) Ischemic cardiomyopathy History of complete heart block Hypertension Coronary artery disease History of pacemaker Surgical History S/P cholecystectomy (07/27/24) H/O hand surgery History of bladder surgery H/O hernia repair History of low anterior resection of rectum History of coronary artery stent placement Family History Mother No problems noted. Father No problems noted. Social History Household Members: Spouse Housing: House Are you a primary caregiver assisted living to a significant other at home: No Do you presently have visiting nurse or other home services: No Alcohol intake: former Patient Tobacco Use Status: Former Tobacco user Tobacco use type: Cigarette Cigarette Packs Per Day: 0.25 Years Smoked: 45 Second Hand Smoke Exposure: No service: No Cognitive needs: Yes Hearing needs: No Vision needs: No Review of Systems Const Denies chills and Denies fever(s) Card Denies chest pain Resp Denies cough GI Denies abdominal pain and Denies vomiting Physical Exam Const Other: Looks well General: comfortable and no acute distress Eyes Other: Anicteric Resp Effort & Inspection: normal respiratory effort GI Other: Incisions clean and dry, irene intact, SOHAIL drain in place, scanty serosanguineous output and nonbilious Palpation (GI): Soft to palpation and not firm Assessment & Plan Assessment & Plan (1) Acute cholecystitis: Code(s): K81.0 - Acute cholecystitis Category: Medical Plan: status post subtotal fenestrating cholecystectomy. She is doing very well postoperatively. All incisions are well healed. The SOHAIL drain has scanty output is nonbilious. I therefore removed the SOHAIL drain I will see her again in the office next week to remove her skin irene. She clinically seems to be doing very well. Her blood pressure initially was 78 systolic but we repeated this and this was actually 96 systolic. She denied any symptoms of orthostasis. She was ambulating well with a walker. I did instruct her to increase her oral intake of fluids. Coding Level of Care Code Tele New Pt Level 3 (70921) [employer] (44001) Diagnoses Acute cholecystitis K81.0
[2024-08-03 13:41] VITALS: BP 78/52; PULSE 110
== END 2024-08-03 14:15 | disposition home or self-care (01) ==
LOC: HO.HGS 13:12
PROVIDERS: PCP Internal Medicine; Visit Provider Surgery
DX: K81.0 Acute cholecystitis (principal)
CPT/HCPCS: 99024

== ENCOUNTER → 2024-08-03 13:12 | Outpatient (BNVA) | payer MEDICARE, SELFPAY | PROVIDERS: PCP Internal Medicine; Visit Provider Surgery | DX: Z13.89 Encounter for screening for other disorder (principal) ==

== ENCOUNTER 2024-08-10 09:59 | Outpatient (AMB) | payer MEDICARE, SELFPAY ==
--- NOTE | 2024-08-10 10:01 | MHC.OFFVIS ---
Vital Signs 08/10/24 10:11 Weight 155 lb BP 102/68 Blood Pressure Location Lt brachial Position Sitting Intake Visit Reasons: S/P lap trent, poss open Intake Note: Patient here for 2wk s/p laparoscopic cholecystectomy. Reports incision healing well. [place] to be removed today. Patient c/o: has been feeling dizzy. Denies oozing from SOHAIL drain site. Filament Maker Required: No Accompanied by: Spouse Allergies No Known Allergies Allergy (Mild, Verified 08/10/24 10:13) N/A Medication List - Last Reconciled 08/10/24 by Fermín Oh MD aspirin (Adult Low Dose Aspirin) 81 mg PO DAILY atorvastatin 80 mg PO BEDTIME clopidogrel 75 mg PO DAILY docusate sodium (Colace) 100 mg PO BID PRN metoprolol succinate ER 25 mg PO DAILY [Walker As directed] walker (Ultra-Light Rollator misc) As directed HPI HPI S/P lap trent, poss open: Details: She is here for follow-up after open subtotal fenestrating cholecystectomy last 07/27/2024. I had removed her SOHAIL drain in the office last week. She says she does not have good appetite yet although she feels that this has been slowly getting better. She denies any significant pain and does not really take her Percocet. She admits to feeling lightheaded. [facility] Medical History Gallstones Hospital discharge follow-up Hyperkalemia Adrenal nodule History of ST elevation myocardial infarction (STEMI) Ischemic cardiomyopathy History of complete heart block Hypertension Coronary artery disease History of pacemaker Surgical History S/P cholecystectomy (07/27/24) H/O hand surgery History of bladder surgery H/O hernia repair History of low anterior resection of rectum History of coronary artery stent placement Family History Mother No problems noted. Father No problems noted. Social History Household Members: Spouse Housing: House Are you a primary critical care registered nurse to a significant other at home: No Do you presently have visiting nurse or other home services: No Alcohol intake: former Patient Tobacco Use Status: Former Tobacco user Tobacco use type: Cigarette Cigarette Packs Per Day: 0.25 Years Smoked: 45 Second Hand Smoke Exposure: No service: No Cognitive needs: Yes Hearing needs: No Vision needs: No Review of Systems Const Denies chills, Denies fever(s) and Reports weakness Eyes Details: Anicteric Card Denies chest pain and Reports dyspnea on exertion Resp Reports dyspnea on exertion GI Denies abdominal pain Neuro Reports weakness Physical Exam Vital Signs: Last Vital Signs BP 108/62 08/10/24 10:11 Assessment & Plan Assessment & Plan (1) S/P cholecystectomy: Onset Date: 07/27/24 Comment: Dr. Oh Code(s): Z90.49 - Acquired absence of other specified parts of digestive tract Category: Surgical Plan: I removed all her skin irene. The incision is well healed Her blood pressure was 90/60 here in the office and she admits to being lightheaded. We therefore brought her to the emergency room to be evaluated for hypotension. She does have a history of coronary artery disease and is on metoprolol She has been instructed to avoid lifting anything more than 20 lb for at least 2 more weeks. Her was with her during the visit. Coding Level of Care Code Global (04359) Diagnoses S/P cholecystectomy Z90.49
[2024-08-10 10:11] VITALS: BP 102/68
== END 2024-08-10 10:36 | disposition home or self-care (01) ==
LOC: HO.HGS 10:00
PROVIDERS: PCP Internal Medicine; Visit Provider Surgery
DX: Z90.49 Acquired absence of other specified parts of digestive tract (principal)
CPT/HCPCS: 99024

== ENCOUNTER 2024-08-10 10:28 | Emergency (ER) | payer MEDICARE, SELFPAY ==
[2024-08-10] VITALS (18 sets, daily range): BP systolic 74–134; BP diastolic 50–92; PULSE 51–110; RESP 15–22; TEMP 36.1–37; O2SAT 94–98; BMI 26.6
--- NOTE | 2024-08-10 10:37 | ECG_ITS ---
Test Reason : LOW BP Blood Pressure : */* mmHG Vent. Rate : 108 BPM Atrial Rate : 108 BPM P-R Int : 176 ms QRS Dur : 120 ms QT Int : 372 ms P-R-T Axes : 39 -26 123 degrees QTcB Int : 498 ms Atrial-sensed ventricular-paced rhythm with occasional sinus complexes and with occasional Premature ventricular complexes and Fusion complexes Abnormal ECG When compared with ECG of 20-May-2024 11:27, Fusion complexes are now Present Vent. rate has increased by 42 bpm Referred By: Generic ED Physician Electronically Signed By: Barry Gilliam
--- NOTE | 2024-08-10 11:07 | ED.GENADULT ---
HPI - General Adult General Chief complaint: General Medical Stated complaint: Dizziness, Low Blood Pressure Time Seen by Provider: 08/10/24 10:59 Source: patient Mode of arrival: ambulatory Limitations: no limitations History of Present Illness ED Provider: Mitzy Flores PA-C HPI narrative: 74-year-old female with medical history of , HTN, CAD w/ stent placed in 2020 with pacemaker, s/p cholecystectomy with Dr. Oh (07/27/2024) presents to the ED today due to hypotension and lightheadedness. Patient states she was in the office today for a postop evaluation when office note as she was hypotensive at 90/60 and patient was symptomatic with lightheadedness/dizziness. Patient states she feels ?woozy? when standing up and is more lightheaded as she does not feel like she is spinning or the room is spinning but states she feels as if she will pass out when standing up. Patient states she has not had much of an appetite since her procedure but does report drinking plenty of fluids. She states the lightheadedness/dizziness has been ongoing since before her surgery. Denies recent sick contacts, or travel. Denies chest pain, shortness of breath, nausea, vomiting, headaches, visual changes, black/tarry stools MD complaint: lightheadded Onset (ago): hour(s) Related Data Home Medications ?Medication ?Instructions ?Recorded ?Confirmed aspirin 81 mg tablet,delayed 81 mg PO DAILY 05/30/20 08/10/24 release (Adult Low Dose Aspirin) atorvastatin 80 mg tablet 80 mg PO BEDTIME 05/30/20 08/10/24 clopidogrel 75 mg tablet 75 mg PO DAILY 05/20/24 08/10/24 metoprolol succinate 25 mg 25 mg PO DAILY 05/20/24 08/10/24 tablet,extended release 24 hr Previous Rx's ?Medication ?Instructions ?Recorded Walker #1 ea 07/29/24 docusate sodium 100 mg capsule 100 mg PO BID PRN constipation #30 07/29/24 (Colace) caps walker (Ultra-Light Rollator misc) #1 ea 07/30/24 Allergies Allergy/AdvReac Type Severity Reaction Status Date / Time No Known Allergies Allergy Mild N/A Verified 08/10/24 10:37 Review of Systems Review of Systems: CONST: Negative for fever, body aches and chills. HENT: Negative for neck pain/stiffness, headache, congestion, sore throat, swelling. EYES: Negative for discharge/pain or vision changes. RESP: Negative for cough/hemoptysis and shortness of breath. CV: Negative chest pain, difficulty breathing, palpitations. ABD: Negative pain, nausea, vomiting. : Negative increase frequency, dysuria, blood in urine or stool. MUSC: Negative for muscle aches, edema. SKIN: Negative rash, lesions/sores. NEURO: Negative headache, dizziness, weakness. POS dizziness/lightheadedness. [facility] Past Medical History Attestation statement: The following information was validated with the patient. Source: old records reviewed and nursing notes reviewed Medical History Gallstones Hospital discharge follow-up Hyperkalemia Adrenal nodule History of ST elevation myocardial infarction (STEMI) Ischemic cardiomyopathy History of complete heart block Hypertension Coronary artery disease History of pacemaker Surgical History S/P cholecystectomy (07/27/24) H/O hand surgery History of bladder surgery H/O hernia repair History of low anterior resection of rectum History of coronary artery stent placement Family History Family History Mother No problems noted. Father No problems noted. Social History Social History Household Members: Spouse Housing: House Are you a primary acute care surgeon to a significant other at home: No Do you presently have visiting nurse or other home services: No Alcohol intake: former Patient Tobacco Use Status: Former Tobacco user Tobacco use type: Cigarette Cigarette Packs Per Day: 0.25 Years Smoked: 45 Second Hand Smoke Exposure: No Advance Directives: No Advance Directives Information Provided: Yes service: No Cognitive needs: Yes Hearing needs: No Vision needs: No Physical Exam ED Vital Signs: Vital Signs - 24 hr 08/10/24 10:35 08/10/24 11:07 08/10/24 11:25 Temperature 97 F Pulse Rate 110 H 94 96 Respiratory Rate 20 19 20 Blood Pressure 74/50 L 95/54 L 94/56 L Pulse Oximetry 97 97 98 Oxygen Delivery Method Room Air Room Air 08/10/24 12:06 08/10/24 12:28 08/10/24 12:28 Temperature Pulse Rate 90 83 Respiratory Rate 21 H 22 H Blood Pressure 109/53 L 113/64 Pulse Oximetry 94 97 Oxygen Delivery Method Room Air Room Air 08/10/24 12:36 08/10/24 12:36 08/10/24 12:37 Temperature Pulse Rate 57 52 51 Respiratory Rate Blood Pressure 110/58 L 118/66 99/53 L Pulse Oximetry Oxygen Delivery Method 08/10/24 12:40 08/10/24 12:42 08/10/24 13:41 Temperature 97.9 F Pulse Rate 103 H 80 Respiratory Rate 15 20 Blood Pressure 110/58 L 134/55 L Pulse Oximetry 98 97 Oxygen Delivery Method Room Air Room Air 08/10/24 14:00 08/10/24 14:49 08/10/24 14:50 Temperature Pulse Rate 85 64 86 Respiratory Rate Blood Pressure 131/92 H 112/64 101/64 Pulse Oximetry Oxygen Delivery Method 08/10/24 16:18 08/10/24 16:21 08/10/24 16:22 Temperature 97.5 F Pulse Rate 80 85 70 Respiratory Rate 19 Blood Pressure 110/60 110/54 L 96/53 L Pulse Oximetry 95 Oxygen Delivery Method Room Air 08/10/24 16:23 Temperature Pulse Rate 73 Respiratory Rate Blood Pressure 93/51 L Pulse Oximetry Oxygen Delivery Method BMI result Body Mass Index 26.6 GENERAL APPEARANCE: ?AxOx4, generally well-appearing, no acute distress. HEENT: ?NC, AT. Dry MM. EOMI, clear conjunctiva, oropharynx clear. HEART:? Normal rate and regular rhythm, normal S1/S1, no m/r/g LUNGS:? CTAB, moving air well. No crackles or wheezes are heard. ABDOMEN: ?Soft, nontender, nondistended with good bowel sounds heard. Approx 7cm linear incision of the RUQ, well approximated, no active bleeding/drainage. BACK: No CVAT, no obvious deformity. EXTREMITIES: ?Without cyanosis, clubbing or edema. NEUROLOGICAL: ?Grossly nonfocal. Alert and oriented, moving all 4 extremities. Observed to ambulate with normal gait. Skin: ?Warm and dry without any rash. Medications Administered Discontinued Medications Generic Name Dose Route Start Last Admin Trade Name Freq PRN Reason Stop Dose Admin Sodium Chloride 1,000 mls @ 999 mls/hr 08/10/24 11:45 08/10/24 12:42 Ns IV 08/10/24 12:45 Infused .Q1H1M JOSEPHINE Infusion Lactated Ringer's 500 mls @ 999 mls/hr 08/10/24 13:15 08/10/24 13:40 Lr IV 08/10/24 13:45 Infused .Q31M JOSEPHINE Infusion Lactated Ringer's 500 mls @ 999 mls/hr 08/10/24 15:30 08/10/24 16:23 Lr IV 08/10/24 16:00 Infused .Q31M JOSEPHINE Infusion Medical Decision Making Medical Decision Making MDM Narrative: 74-year-old female with medical history of , HTN, CAD w/ stent placed in 2020 with pacemaker, s/p cholecystectomy with Dr. Oh (07/27/2024) presents to the ED today due to hypotension and lightheadedness. Patient states she was in the office today for a postop evaluation when office note as she was hypotensive at 90/60 and patient was symptomatic with lightheadedness/dizziness. Patient states she feels ?woozy? when standing up and is more lightheaded as she does not feel like she is spinning or the room is spinning but states she feels as if she will pass out when standing up. Patient states she has not had much of an appetite since her procedure but does report drinking plenty of fluids. She states the lightheadedness/dizziness has been ongoing since before her surgery. Initial vital signs reveal BP 74/50, and tachycardic rate of 110 beats per minute, started 1 L of IV fluids. Physical exam reveals approximately 7 cm linear incision of the RUQ, well approximated, no erythema, no warmth, not actively draining/bleeding, afebrile, WBC count is mildly elevated at 11.4 this is most likely due to post op status- do not suspect infection. Labs reveal mild anemia with RBCs at 4.1, HGB at 11.4, HCT at 35.3%. This is likely due to recent cholecystectomy surgery that was originally laparoscopic but converted to an open incision. These values at this time do not need immediate transfusion. Abdomen soft, nondistended, nontender. No edema of the lower extremities, no calf tenderness, no shortness of breath, no chest pain- less likely DVT. EKG without ST elevation/depression/T-wave inversions, shows PACs and fusion complexes this is most likely due to pacemaker. initial troponin 7.1 WNL- less likely ACS Course 13:30- 110/58 (57 BPM)- supine 118/66 (101 BPM)- sitting 99/53 (51 BPM)- standing Patient orthostatic with drop of systolic at 19 points and patient symptomatic with lightheadedness. HR increase of greater than 20 from supine to sitting suggests volume depletion. Will give 500mL LR for fluid repletion and re-evaluate orthostatics. 14:42- 131/92 (85)- supine 112/66 (64)- sitting 101/64 (86)- standing Orthostatics evavluated after additional 500ml of fluids (total fluid- 1500mL) patient is still orthostatic with HR increase of 22 points from sitting to standing suggesting patient is still volume depleted. Will give additional 500mL of LR IV fluid and reassess. I ambulated with patient who uses a walker after cholecystectomy, who ambulated without ataxic gait and is not experiencing lightheaded or dizziness while ambulating.Obtaining 2nd troponin to evaluate for significant delta. 16:42- patient recieved additional 500mL (total 2,000mL) IV fluids. 2nd troponin 5.1, showing decrease from initial, without significant delta. 101/54 (85)- supine 96/53 (70)- sitting 93/51 (73)- standing Patient no longer exhibiting orthostatic hypotension, however still experiencing hypotension. Takes 25mg metoprolol succinate daily, this could be contributing to hypotension. Patient adamant that she is feeling better, no longer experiencing lightheadedness. Have witnessed patient ambulate with walker, without dizziness or lightheadedness. Patient feels confident in going home for self-care, lives with and will not be alone. Patient has appointment with PCP this coming Thursday, counseled on discussing dose of metoprolol with PCP and educational sign language interpreter. Counseled patient on keeping up with oral fluids, Pedialyte, use of ensure while she is awaiting her appetite to come back s/p cholecystectomy. Patient is in agreement to plan, went over strict return precautions, she will monitor her BP with home BP cuff. Most recent BP before discharge was 110/54 Differential Diagnosis Differential Diagnoses: The differential diagnosis associated with the presentation includes ACS Orthostatic hypotension Electrolyte abnormality DVT Admission/Observation Consideration of admission/observation: Escalation of care including admission/observation considered Lab Data MDM Lab Attestation statement: I reviewed the patient's lab results. 08/10/24 11:53 08/10/24 11:53 Labs: Lab Results 08/10/24 08/10/24 08/10/24 Range/Units 11:53 14:51 15:51 WBC 11.4 H (4.8-10.8) X10*3/uL RBC 4.19 L (4.20-5.50) X10*6/uL Hgb 11.4 L (12.0-16.0) g/dl Hct 35.3 L (37.0-47.0) % MCV 84.2 (80.0-98.0) fL MCH 27.2 (27.0-33.0) pg MCHC 32.3 (31.0-35.0) g/dl RDW 14.8 (11.0-16.0) % Plt Count 358 D (160-400) X10*3/uL MPV 9.9 (9.4-12.3) fL Immature Gran % (Auto) 0.6 H (0.0-0.4) % Neut % (Auto) 87.9 H (45-73) % Lymph % (Auto) 3.8 L (20-40) % [place] % (Auto) 7.1 (2-11) % Eos % (Auto) 0.2 (0-4) % Baso % (Auto) 0.4 (0-2) % Lymph # (Auto) 0.4 L (1.2-4.9) X10*3/uL [place] # (Auto) 0.8 (0.1-1.2) X10*3/uL Eos # (Auto) 0.0 (0.0-0.4) X10*3/uL Baso # (Auto) 0.0 (0.0-0.2) X10*3/uL Abs Immat Gran (auto) 0.07 H (0.00-0.03) X10*3/uL Absolute Neuts (auto) 10.1 H (2.0-8.3) x10*3/uL Absolute Nucleated RBC 0.000 (0.0-0.012) X10*3/uL Nucleated RBC % (auto) 0.0 (0.0-0.2) /100WBC Sodium 138 (135-145) mmol/L Potassium 3.6 D (3.3-5.1) mmol/L Chloride 106 (96-108) mmol/L Carbon Dioxide 21 L (22-29) mmol/L Anion Gap 15 (12-20) BUN 17 H (9-16) mg/dL Creatinine 0.86 (0.5-1.4) mg/dL Estim Creat Clear Calc 53.5 Estimated GFR > 60 Random Glucose 117 H (60-115) mg/dL Lactic Acid 1.9 (0.5-2.0) mmol/L Calcium 8.1 L D (8.4-10.2) mg/dL Total Bilirubin 0.5 (0.0-1.0) mg/dL AST 40 H (5-31) U/L ALT 9 (0-31) U/L Alkaline Phosphatase 57 (39-117) U/L Troponin I High Sens 7.1 D 5.1 (<3.5-17.0) ng/L C-Reactive Protein 25.72 H (< or = 0.50) mg/dL Total Protein 6.0 L (6.5-8.0) g/dL Albumin 2.8 L (3.5-5.0) g/dL Lipase 10 (8-78) U/L Urine Color Dark Yellow Urine Appearance Turbid Urine pH 6.0 (5.0-9.0) Ur Specific [place] 1.025 (1.005-1.025) Urine Protein 100 (2+) H (Neg-Trace) mg/dL Urine Glucose (UA) 100 H (Negative) mg/dL Urine Ketones 15 (Negative) mg/dL Urine Blood Negative (Negative) Urine Nitrite Negative (Negative) Ur Leukocyte Esterase Trace H (Negative) Urine RBC 0-2 (0-2) /HPF Urine WBC 0-5 (0-5) /HPF Ur Squamous Epith Cells >20 (0-2) /HPF Urine Bacteria 4+ (None Seen) Hyaline Casts >20 (0-2) /LPF Independent Interpretation I performed an independent interpretation of an: EKG Interpretation: I independently interpreted the EKG Vent. Rate : 108 BPM Atrial Rate : 108 BPM P-R Int : 176 ms QRS Dur : 120 ms QT Int : 372 ms P-R-T Axes : 39 -26 123 degrees QTcB Int : 498 ms Atrial-sensed ventricular-paced rhythm with occasional sinus complexes and with occasional Premature ventricular complexes and Fusion complexes Abnormal ECG When compared with ECG of 20-May-2024 11:27, Fusion complexes are now Present Vent. rate has increased by 42 bpm External Record Review External record reviewed: Inpatient record, Office record and Outpatient record Chronic Conditions Patient?s care impacted by: Hypertension and Other (S/P cholecystectomy (07/27), CAD, pacemaker) Discharge Plan Discharge Clinical Impression: Orthostatic hypotension Patient Disposition: Home, Self-Care Instructions: Hypotension (ED), Dizziness (ED) Additional Instructions: You were evaluated in the ED today due to hypotension, and lightheadedness. Your labs today revealed a mild anemia, but non-emergent. Your EKG did not reveal any emergent cardiac process. Your oral mucus membranes looked dry on physical exam, you stated that you were not eating much after your surgery. You were given 2000 mL of IV fluids for rehydration, a peanut butter and jelly sandwich in the department, and panfilo evi all of which you tolerated. After rehydration and eating your blood pressures returned to normal however you do have some mild hypotension. This could be due to your medication called metoprolol succinate you should discuss this with your PCP, and educational sign language interpreter. You should also also discuss rechecking your CBC to ensure improvement of your hemoglobin and hematocrit levels. Please return to the emergency department if you experience chest pain, shortness of breath, low BP at home with BP cuff, lightheadedness, dizziness, nausea, vomiting, black or bloody stool, or any new/worsening/concerning symptoms Prescriptions: No Action atorvastatin 80 mg tablet 80 mg PO BEDTIME aspirin [Adult Low Dose Aspirin] 81 mg tablet,delayed release (DR/EC) 81 mg PO DAILY (DME) Walker See Rx Instructions .Route .MEDSUPPLY Qty: 1 0RF Rx Instructions: As directed clopidogrel 75 mg tablet 75 mg PO DAILY metoprolol succinate 25 mg tablet extended release 24 hr 25 mg PO DAILY docusate sodium [Colace] 100 mg capsule 100 mg PO BID PRN (Reason: constipation) Qty: 30 0RF (DME) Ultra-Light Rollator Misc See Rx Instructions .Route Qty: 1 0RF Rx Instructions: As directed Print Language: Moroccan
--- NOTE | 2024-08-10 11:09 | PC.NURSE ---
Pt A&O X4 NSR with PVCs on tele. Connected to full monitor. Pt states hx of dizziness preop and continues now. Pt came from provider with low BP in office. Provider in evaluating pt now. Pt denies pain. Pt states hx of pacemanker and stents. Stopped plavix for open Cholecystectomy two weeks ago But restarted. No other complaints no N/V. No syncope. No abd pain. States moving bowels normally after OR.
[2024-08-10] MEDS: 0.9 % Sodium Chloride 1,000 ML 999 ML IV (11:32)
[2024-08-10 12:01] LABS: MANUAL DIFF FLAG NO
[2024-08-10 12:02] LABS: Basophils Percent Auto 0.4 % (0-2); Eosinophils Percent Auto 0.2 % (0-4); Hematocrit 35.3 % (37.0-47.0); Hemoglobin 11.4 g/dl (12.0-16.0); Imm Gran Abs Auto 0.07 X10*3/uL (0.00-0.03); Imm Gran Pct Auto 0.6 % (0.0-0.4); Lymphocytes Absolute Auto 0.4 X10*3/uL (1.2-4.9); Lymphocytes Percent Auto 3.8 % (20-40); Mean Corpuscular HGB Conc 32.3 g/dl (31.0-35.0); Mean Corpuscular Hemoglobin 27.2 pg (27.0-33.0); Mean Corpuscular Volume 84.2 fL (80.0-98.0); Mean Platelet Volume 9.9 fL (9.4-12.3); Monocytes Absolute Auto 0.8 X10*3/uL (0.1-1.2); Monocytes Percent Auto 7.1 % (2-11); Neutrophils Absolute Auto 10.1 x10*3/uL (2.0-8.3); Neutrophils Percent Auto 87.9 % (45-73); Platelet Count 358 X10*3/uL (160-400); Red Blood Count 4.19 X10*6/uL (4.20-5.50); Red Cell Distribution Width 14.8 % (11.0-16.0); White Blood Count 11.4 X10*3/uL (4.8-10.8)
[2024-08-10 12:16] LABS: Lactic Acid 1.9 mmol/L (0.5-2.0)
[2024-08-10 12:17] LABS: Alanine Aminotransferase 9 U/L (0-31); Albumin Level 2.8 g/dL (3.5-5.0); Alkaline Phosphatase 57 U/L (39-117); Anion Gap 15 (12-20); Aspartate Amino Transferase 40 U/L (5-31); Bilirubin Total 0.5 mg/dL (0.0-1.0); Blood Urea Nitrogen 17 mg/dL (9-16); C Reactive Protein 25.72 mg/dL (< or = 0.50); Calcium 8.1 mg/dL (8.4-10.2); Carbon Dioxide 21 mmol/L (22-29); Chloride 106 mmol/L (96-108); Creatinine Clr Calc Pharmacy 53.5; Estimated Glomerular Filt Rate > 60; Glucose Random 117 mg/dL (60-115); Lipase 10 U/L (8-78); Potassium 3.6 mmol/L (3.3-5.1); Sodium 138 mmol/L (135-145)
[2024-08-10 12:24] LABS: Troponin-I High Sensitivity 7.1 ng/L (<3.5-17.0)
[2024-08-10] MEDS: Lactated Ringers 500 ML 999 ML IV ×2 (13:18→15:40)
[2024-08-10 14:59] LABS: Appearance Urine Turbid; Color Urine Dark Yellow; Glucose Urine UA 100 mg/dL (Negative); Leukocyte Esterase Urine Trace (Negative); Nitrite Urine Negative (Negative); Specific Gravity - Urine 1.025 (1.005-1.025); UMIC TRIGGER UACC YES; Urine Blood Negative (Negative); Urine Ketones 15 mg/dL (Negative); Urine Protein 100 (2+) mg/dL (Neg-Trace)
--- NOTE | 2024-08-10 15:02 | PC.NURSE ---
Pt ambulated to BR with tech and still c/o dizziness. Provider aware.
[2024-08-10 15:15] LABS: Bacteria Urine 4+ (None Seen); Hyaline Casts Urine >20 /LPF (0-2); RBC Urine 0-2 /HPF (0-2); Squamous Epithelial Cell Urine >20 /HPF (0-2); WBC Urine 0-5 /HPF (0-5)
[2024-08-10 16:18] LABS: Troponin-I High Sensitivity 5.1 ng/L (<3.5-17.0)
--- NOTE | 2024-08-10 16:24 | PC.NURSE ---
Provider aware that IVF is completed, repeat Orthos being completed at this time
== END 2024-08-10 17:38 | disposition home or self-care (01) ==
PROVIDERS: Emergency Provider Emergency Medicine; PCP Internal Medicine
DX: I95.1 Orthostatic hypotension (principal); I10 Essential (primary) hypertension; Z95.0 Presence of cardiac pacemaker; Z90.49 Acquired absence of other specified parts of digestive tract; Z87.891 Personal history of nicotine dependence
CPT/HCPCS: 36415; 80053; 81001; 83605; 83690; 84484; 85025; 86140; 87040; 93005; 96360; 96361; 99212; 99284; 99285; J7120

== ENCOUNTER → 2024-08-10 10:37 | Outpatient (BNV) | payer MEDICARE, SELFPAY | PROVIDERS: Emergency Provider Emergency Medicine; PCP Internal Medicine; Visit Provider Internal Medicine Cardiovascular Disease | DX: I49.3 Ventricular premature depolarization (principal); Z95.0 Presence of cardiac pacemaker | CPT/HCPCS: 93010 ==

== ENCOUNTER 2024-08-12 08:03 | Outpatient (AMB) | payer MEDICARE, SELFPAY ==
[2024-08-12 08:07] VITALS: BP 108/68; PULSE 75; RESP 20; TEMP 36.2; O2SAT 97; BMI 27.2
--- NOTE | 2024-08-12 08:07 | MHC.PC.OV ---
Vital Signs 08/12/24 08:07 Height 5 ft 4 in Weight 158 lb 4.67 oz BMI 27.2 BP 108/68 Blood Pressure Location Lt brachial Position Sitting Respiration 20 Pulse 75 Pulse Source Pulse Oximeter Temp 97.1 F Temp Source Temporal Artery Scan Pulse Oximetry (%) 97 Oxygen Delivery Method Room Air Intake Visit Reasons: TCM [facility] 07/30 s/p cholecystectomy Intake Note: Patient is here for hospital discharge follow up. Patient was discharged from [facility] in [place], [place] on 07/30/2024. Toucher Up Required: No Accompanied by: Self / Same As Patient Allergies No Known Allergies Allergy (Mild, Verified 08/12/24 08:08) N/A Tobacco use date assessed: 08/12/24 Fall risk assessment: 1 Fall in past year Last assessed Fall Risk: 08/12/24 Dental Screening Dental Screen Date: 08/12/24 Did you have a dental visit in the last 12 months?: No Did you have a dental problem in the last 6 months where you did not have access to dental care?: No Was dental information given to patient?: No HPI HPI Comments History of Present Illness Details 74 y/o Female patient who presents to the clinic for TCM. Pt was admitted at [facility] on 07/27 - 07/30 for an evaluation and treatment of Acute Cholecystitis. S/p laparoscopic cholecystectomy, converted to open subtotal Fenestrating cholecystectomy on 07/27/24. Pt had Post-Op Appointment with Surgeon on 08/10/24. She is doing well at home, no severe pain. She does report poor appetite and has not been eating well (Solids) and she has not moved her Bowels in 3 days. She does have Colace but hasn't taken it for 3 days due to Diarrhea. [facility] Medical History Gallstones Hospital discharge follow-up Hyperkalemia Adrenal nodule History of ST elevation myocardial infarction (STEMI) Ischemic cardiomyopathy History of complete heart block Hypertension Coronary artery disease History of pacemaker Surgical History S/P cholecystectomy (07/27/24) H/O hand surgery History of bladder surgery H/O hernia repair History of low anterior resection of rectum History of coronary artery stent placement Family History Mother No problems noted. Father No problems noted. Social History Household Members: Spouse Housing: House Are you a primary skin care specialist to a significant other at home: No Do you presently have visiting nurse or other home services: No Alcohol intake: former Patient Tobacco Use Status: Former Tobacco user Tobacco use type: Cigarette Cigarette Packs Per Day: 0.25 Years Smoked: 45 Packs Per Year: 11 e-Cigarette/Vaping Use: Never Used Second Hand Smoke Exposure: No service: No Cognitive needs: Yes (Walker) Hearing needs: No Vision needs: No Questionnaire Thrive Questionnaire Date Thrive assessed: 08/12/24 I am a: Patient What is your living situation today?: I have a steady place to live Within the past 12 months, did the food you bought not last and you didn't have the money to get more?: Never true Within the past 12 months, did you worry whether your food would run out before you got money to buy more?: Never true Do you have trouble paying for medicines?: No Do you have trouble getting transportation to medical appointments?: No Do you have trouble paying your heating and electricity bill?: No Do you have trouble taking care of your child, family member or friend?: No Do you have trouble with day-to-day activities such as bathing, preparing meals, shopping, managing finances, etc.?: No Are you currently unemployed and looking for a job?: No Are you interested in more education?: No Please select the resources that you would like help with: None Currently or been in a relationship where the following occur: No concerns reported THRIVE Score: 0 AUDIT C Alcohol Use Questionnaire (AUDIT-C) 1. How often do you have a drink containing alcohol?: Never Total Score: 0 Score Reviewed/Action Taken: No DOUGLAS-7 AMB Questionnaire DOUGLAS-7 Date DOUGLAS - 7 assessed: 05/27/24 Source: Developed by Drs. Edy Beltran, Skylar Dykes, Jose Angel Partida and colleagues, with an educational rosalba from [employer]. Review of Systems Const All systems reviewed & are unremarkable except as noted in HPI and below Physical exam (Primary Care) Vital Signs: Last Vital Signs Temp 97.1 F 08/12/24 08:07 Pulse 75 08/12/24 08:07 Resp 20 08/12/24 08:07 BP 108/68 08/12/24 08:07 Pulse Ox 97 08/12/24 08:07 Oxygen Delivery Method Room Air 08/12/24 08:07 BMI result Body Mass Index 27.2 Tobacco/Smoking Status: Tobacco use Status Tobacco use date assessed 08/12/24 08/12/24 08:16 Patient Tobacco Use Status Former Tobacco user 08/12/24 08:16 Tobacco use type Cigarette 08/12/24 08:16 e-Cigarette/Vaping Use Never Used 08/12/24 08:16 Thrive Assessment: Date of Thrive Assessment Date Thrive assessed 08/12/24 08/12/24 08:16 Currently or been in a relationship where the following occur: No concerns reported Const General: no acute distress Orientation/consciousness: patient oriented x3 Limitations: ambulation with walker Resp Effort & Inspection: normal respiratory effort Auscultation: clear to auscultation bilaterally Cardio Heart sounds: S1 normal heart sound present and S2 normal heart sound present GI Palpation (GI): Soft to palpation, not firm, Tenderness to palpation present (GI) (Surgical wound), no guarding, not rigid and No hepatosplenomegaly present Auscultation: Hypoactive bowel sounds present Rectal Exam - Female: deferred Abdomen image:  1. Well healing surgical wound, skin dry and intact, no drainage. Mild TTP 2. Small ?Hematoma ?swelling around the area where the surgical Drain was placed and removed - very TTP. General: Yes no CVA tenderness Back/Spine/Pelvis Back: no CVA tenderness Neuro General: patient oriented x3, gait normal and moves all extremities Psych Speech and movement: Normal speech and movement present Coding Level of Care Code TCM Mod MDM <= 14 Days Diagnoses S/P cholecystectomy Z90.49 Time Spent (min) 20 Assessment & Plan Assessment & Plan (1) S/P cholecystectomy: Onset Date: 07/27/24 Comment: Dr. Oh Code(s): Z90.49 - Acquired absence of other specified parts of digestive tract Category: Surgical Plan: Continues to heal well at home Educated on signs and symptoms to report to ED and Surgeon Advised to take Colace Apply heat/Ice at the swelling area ?Hematoma
== END 2024-08-12 10:00 | disposition home or self-care (01) ==
LOC: HO.HMCH 08:04
PROVIDERS: PCP Internal Medicine; Visit Provider Nurse Practitioner Family
DX: K81.0 Acute cholecystitis (principal); Z90.49 Acquired absence of other specified parts of digestive tract

== ENCOUNTER → 2024-08-12 08:03 | Outpatient (BNVA) | payer MEDICARE, SELFPAY | PROVIDERS: PCP Internal Medicine; Visit Provider Nurse Practitioner Family | DX: Z90.49 Acquired absence of other specified parts of digestive tract (principal); Z87.891 Personal history of nicotine dependence | CPT/HCPCS: 99495 ==

== ENCOUNTER 2024-09-08 08:21 | Outpatient (AMB) | payer MEDICARE, SELFPAY ==
--- NOTE | 2024-09-08 08:27 | A.OFFVIS_ITS ---
Vital Signs 09/08/24 08:30 Height 5 ft 4 in Weight 146 lb BMI 25.1 Blood Pressure Location Lt brachial Position Sitting Intake Visit Reasons: 1mth S/P lap trent Intake Note: Pt states, I'm feeling better. I have my appetite back. c/o lightheadedness at times Journalism Teacher Required: No Allergies No Known Allergies Allergy (Mild, Verified 09/08/24 08:33) N/A Medication List - Last Reconciled 09/08/24 by Charly Peralta RN aspirin (Adult Low Dose Aspirin) 81 mg PO DAILY atorvastatin 80 mg PO BEDTIME clopidogrel 75 mg PO DAILY docusate sodium (Colace) 100 mg PO BID PRN metoprolol succinate ER 25 mg PO DAILY [Walker As directed] walker (Ultra-Light Rollator misc) As directed HPI HPI 1mth S/P lap trent: Details: She is here for follow-up after open subtotal fenestrating cholecystectomy last 07/27/2024. She now says that she now is feeling much better. She does not have any pain. She has had good oral intake. She describes having more energy. He denies any nausea or vomiting. [facility] Medical History Gallstones Hospital discharge follow-up Hyperkalemia Adrenal nodule History of ST elevation myocardial infarction (STEMI) Ischemic cardiomyopathy History of complete heart block Hypertension Coronary artery disease History of pacemaker Surgical History S/P cholecystectomy (07/27/24) H/O hand surgery History of bladder surgery H/O hernia repair History of low anterior resection of rectum History of coronary artery stent placement Family History Mother No problems noted. Father No problems noted. Social History Household Members: Spouse Housing: House Are you a primary patient care provider to a significant other at home: No Do you presently have visiting nurse or other home services: No Alcohol intake: former Patient Tobacco Use Status: Former Tobacco user Tobacco use type: Cigarette Cigarette Packs Per Day: 0.25 Years Smoked: 45 e-Cigarette/Vaping Use: Never Used Second Hand Smoke Exposure: No service: No Cognitive needs: Yes (Walker) Hearing needs: No Vision needs: No Review of Systems Const Denies chills and Denies fever(s) Card Denies chest pain at rest and Reports dyspnea on exertion Resp Reports dyspnea on exertion GI Denies abdominal pain Physical Exam Vital Signs: BMI result Body Mass Index 25.1 Const Other: Looks well General: comfortable and no acute distress Eyes Other: Anicteric sclerae GI Other: Cholecystectomy incision is well healed Palpation (GI): Soft to palpation, not firm, nontender and no guarding Assessment & Plan Assessment & Plan (1) S/P cholecystectomy: Onset Date: 07/27/24 Comment: Dr. Oh Code(s): Z90.49 - Acquired absence of other specified parts of digestive tract Category: Surgical Plan: She is now doing very well after open subtotal fenestrating cholecystectomy last July. She has had good oral intake. She has more energy. She denies any abdominal pain. She is allowed to return to her normal/baseline level of activity . She can follow up on a p.r.n. basis. Coding Level of Care Code Global (20572) Diagnoses S/P cholecystectomy Z90.49
[2024-09-08 08:30] VITALS: BMI 25.1
== END 2024-09-08 08:55 | disposition home or self-care (01) ==
LOC: HO.HGS 08:21
PROVIDERS: PCP Internal Medicine; Visit Provider Surgery
DX: Z90.49 Acquired absence of other specified parts of digestive tract (principal)
CPT/HCPCS: 99024

== ENCOUNTER → 2024-09-08 08:21 | Outpatient (BNVA) | payer MEDICARE, SELFPAY | PROVIDERS: PCP Internal Medicine; Visit Provider Surgery | DX: Z09 Encounter for follow-up examination after completed treatment for conditions other than malignant neoplasm (principal); Z90.49 Acquired absence of other specified parts of digestive tract | CPT/HCPCS: 99212 ==

== ENCOUNTER 2024-09-22 09:22 | Outpatient (AMB) | payer MEDICARE, SELFPAY ==
--- NOTE | 2024-09-22 09:36 | A.OFFPC_ITS ---
Vital Signs 09/22/24 09:38 Height 5 ft 4 in Weight 145 lb 8 oz BMI 25.0 BP 102/68 Blood Pressure Location Lt brachial Position Sitting Pulse 97 Pulse Source Pulse Oximeter Temp 97.1 F Temp Source Temporal Artery Scan Pulse Oximetry (%) 98 Oxygen Delivery Method Room Air Intake Visit Reasons: Transfer Care from Dr. Orr Follow Up Intake Note: Patient is here today for YESSENIA from Dr Orr Licensing Worker Required: No Haul Cane Brakeman: Not Required per policy Accompanied by: Self / Same As Patient Allergies No Known Allergies Allergy (Mild, Verified 09/22/24 09:37) N/A Tobacco use date assessed: 09/22/24 Fall risk assessment: No Falls in past year Last assessed Fall Risk: 09/22/24 Dental Screening Dental Screen Date: 08/12/24 [facility] Medical History Gallstones Hospital discharge follow-up Hyperkalemia Adrenal nodule History of ST elevation myocardial infarction (STEMI) Ischemic cardiomyopathy History of complete heart block Hypertension Coronary artery disease History of pacemaker Surgical History S/P cholecystectomy (07/27/24) H/O hand surgery History of bladder surgery H/O hernia repair History of low anterior resection of rectum History of coronary artery stent placement Family History (Updated 09/22/24 @ 09:37 by ANGELA Madrid) Mother No problems noted. Father No problems noted. Social History Household Members: Spouse Housing: House Are you a primary health care specialist to a significant other at home: No Do you presently have visiting nurse or other home services: No Alcohol intake: former Patient Tobacco Use Status: Former Tobacco user Tobacco use type: Cigarette Cigarette Packs Per Day: 0.25 Years Smoked: 45 e-Cigarette/Vaping Use: Never Used Second Hand Smoke Exposure: Yes service: No Current occupational status: retired Cognitive needs: Yes (Walker) Hearing needs: No Vision needs: No Questionnaire PHQ-9 Over the last 2 weeks, how often have you been bothered by any of the following problems? 1. Little interest or pleasure in doing things: not at all 2. Feeling down, depressed, or hopeless: not at all 3. Trouble falling or staying asleep, or sleeping too much: not at all 4. Feeling tired or having little energy: several days 5. Poor appetite or overeating: not at all 6. Feeling bad about yourself - or that you are a failure or have let yourself or your family down: not at all 7. Trouble concentrating on things, such as reading the newspaper or watching television: not at all 8. Moving or speaking so slowly that other people could have noticed. Or the opposite - being so fidgety or restless that you have been moving around a lot more than usual: not at all 9. Thoughts that you would be better off or of hurting yourself in some way: not at all Total score: 1 Depression Screening Interpretation: Positive Depression Screening Done: Yes Source: Developed by Drs. Edy Beltran, Skylar Dykes, Jose Angel Partida and colleagues, with an educational rosalba from [employer]. Thrive Questionnaire Date Thrive assessed: 08/12/24 DOUGLAS-7 AMB Questionnaire DOUGLAS-7 Date DOUGLAS - 7 assessed: 05/27/24 Source: Developed by Drs. Edy Beltran, Skylar Dykes, Jose Angel Partida and colleagues, with an educational rosalba from [employer]. Physical exam (Primary Care) Vital Signs: Last Vital Signs Temp 97.1 F 09/22/24 09:38 Pulse 97 09/22/24 09:38 BP 102/68 09/22/24 09:38 Pulse Ox 98 09/22/24 09:38 Oxygen Delivery Method Room Air 09/22/24 09:38 BMI result Body Mass Index 25.0 Tobacco/Smoking Status: Tobacco use Status Tobacco use date assessed 09/22/24 09/22/24 09:46 Patient Tobacco Use Status Former Tobacco user 09/22/24 09:46 Tobacco use type Cigarette 09/22/24 09:46 e-Cigarette/Vaping Use Never Used 09/22/24 09:46 PHQ-9: PHQ-9 Score PHQ-9: Total score 1 09/22/24 09:46 Depression Screening Interpretation: Positive Thrive Assessment: Date of Thrive Assessment Date Thrive assessed 08/12/24 09/22/24 09:46 Coding Level of Care Code Est Pt Level 4 (74298) Complex EM visit Add On G2211 Diagnoses S/P cholecystectomy Z90.49 Unstable angina I20.0 Assessment & Plan Assessment & Plan (1) S/P cholecystectomy: Onset Date: 07/27/24 Comment: Dr. Oh Code(s): Z90.49 - Acquired absence of other specified parts of digestive tract Category: Surgical Plan: Patient is recovering well. CRP will be repeated. (2) Unstable angina: Code(s): I20.0 - Unstable angina Category: Medical Plan: Condition has resolved. Plan History of Present Illness - The patient is a 74-year-old female presenting with a follow-up after cholecystectomy and management of hypertension. - Cholecystectomy was performed by Dr. Cabrera, and the patient reports complete healing with no discomfort or pain post-surgery. - Hypertension is managed by a drawer in [employer], Dr. Sommers, who prescribes her medication. - The patient reports postural instability and lightheadedness since the surgery, leading to the use of a cane for stability. - She denies any falls but experiences lightheadedness, which she manages by sitting down until it passes. - The patient has not been grocery shopping since the surgery, relying on her for this task. - Blood work in July showed elevated levels due to surgery, and repeat blood work is planned to monitor these levels. Social History - The patient is and relies on her for grocery shopping since her surgery. - She maintains activity by moving around as much as possible to manage her postural instability. Review of Systems - General: Denies pain or discomfort post-cholecystectomy. - Cardiovascular: Reports lightheadedness, denies chest pain or syncope. - Neurological: Reports postural instability, denies falls. Physical Exam General: Cooperative and healthy appearing Nutritional Appearance: Well nourished Orientation/consciousness: Patient oriented x3 Limitations: No limitations Head: Normal to inspection General: Appearance normal, both eyes and all related structures Neck: Normal visual inspection Chest: Normal palpation of entire chest wall Respiratory: Pacemaker present, comfortable. ormal respiratory effort Neurology: Patient oriented x3, reports lightheadedness and unsteadiness, uses a cane since surgery. Results - Labs: Blood work in July showed elevated levels due to surgery, repeat blood work planned. Plan 1. Hypertension - Hypertension is managed by a drawer in [employer], Dr. Sommers, with prescribed m edication. 2. Postural Instability - The patient uses a cane for stability due to postural instability and lightheadedness. - No physical therapy is deemed necessary at this time. 3. Lightheadedness - Lightheadedness is managed by sitting down until it passes. 4. Preventative Care: Follow-Up Blood Work - Repeat blood work is planned to monitor previously elevated levels. Discussion Notes I discussed with the patient the importance of monitoring her blood pressure and following up with her drawer in [employer], Dr. Sommers, for hypertension management. We also talked about the need for repeat blood work to check the levels that were elevated post-surgery. I agreed to assist with the handicap placard application to aid her mobility. Patient Instructions - Follow up with your drawer in [employer] for hypertension management. - Schedule and complete repeat blood work as discussed. - Use a cane for stability as needed and sit down if feeling lightheaded. - Bring the handicap placard form for completion. Orders: Orders C Reactive Protein Today Z90.49 - Acquired absence of other specified parts of digestive tract
[2024-09-22 09:38] VITALS: BP 102/68; PULSE 97; TEMP 36.2; O2SAT 98; BMI 25.0
== END 2024-09-22 10:12 | disposition home or self-care (01) ==
LOC: HO.HMCH 09:23
PROVIDERS: PCP Internal Medicine; Visit Provider Internal Medicine
DX: Z90.49 Acquired absence of other specified parts of digestive tract (principal); I20.0 Unstable angina

== ENCOUNTER → 2024-09-22 09:22 | Outpatient (BNVA) | payer MEDICARE, SELFPAY | PROVIDERS: PCP Internal Medicine; Visit Provider Internal Medicine | DX: I20.0 Unstable angina (principal); Z90.49 Acquired absence of other specified parts of digestive tract; I10 Essential (primary) hypertension; Z87.891 Personal history of nicotine dependence | CPT/HCPCS: 99212 ==

== ENCOUNTER 2024-10-10 08:25 | Outpatient (REF) | payer MEDICARE, SELFPAY ==
--- OUTSIDE RECORDS SUMMARY | 2024-10-10 08:50 | XMS_ITS | Clinical Summary ---
Author Organization [facility] Address [address] [place] [address] Phone Care Team Providers Care Hoister Name Role Phone Nathan Orr MD Primary Care Provider [phone] Encounters Date Type Department Care Team Description 10/04/2024 Transcribe [facility] [address], [address] [place], [place] [id number] Brianna Galo Cardiomyopathy, unspecified (Primary Dx); Dizziness and giddiness from Last 3 Months Social History Tobacco Use Types Packs/Day Years Used Date Smoking Tobacco: Never Assessed Education Answer Date Recorded Are you interested in more education? Not on fabrizio e 10/04/2024 Are you concerned about learning? Not on file 10/04/2024 No 10/04/2024 No 10/04/2024 Digital Access Answer Date Recorded No 10/04/2024 No 10/04/2024 Reliable internet access at home? Not on file 10/04/2024 Device with a working camera? Not on file Comments Unknown Sex and Gender Information Value Date Recorded Sex Assigned at Not on file Legal Sex Female 2:22 PM EDT Gender Identity Not on file Sexual Orientation Not on file Plan of Treatment Upcoming Encounters Date Type Department Care Team (Late st Contact Info) Description 10/04/2024 Procedure [facility] [address] [place] [id number] 11/15/2024 9:15 AM EDT Appointment [facility] [address] [place] [address] Gregor Hyde, DO [address] [place] [address] 12/01/2024 11:00 AM EDT Appointment [facility] [address] [place], [place] [id number] Gregor Hyde, DO [address] [place] [id number] 12/09/2024 9:00 AM EDT Office Visit [facility] [address], [address] [place] [address] Gregor Hyde, DO [address] [place] [address] [place] [address] [id number] [email or web address] Health Maintenance Due Date Last Done Comments Adult Td,Tdap Booster 1948 LIPID PANEL 1948 DEPRESSION SCREENING 1960 SMOKING Hx and SMOKELESS TOB ACCO SCREENING 1961 HEPATITIS C SCREENING 1966 PNEUMOCOCCAL VACCINES (50+ y ears) (1 of 1 - PCV) 1998 ZOSTER VACCINES (1 of 2) 1998 OSTEOPOROSIS SCREENING INITI AL (ONE-TIME) 2013 RSV VACCINE (1 - 1-dose 75+ series) 2023 COVID-19 VACCINE (1 - 2023-2 5 season) 2023 HEPATITIS A VACCINES Aged Out No long er eligible based on patient's age to complete this topic HIB VACCINES Aged Out No longer eligi ble based on patient's age to complete this topic MENINGOCOCCAL VACCINES (ACWY) Aged Out No longer eligible based on patient's age to complete this topic MENINGOCOCCAL VACCINES (B) Aged Out N o longer eligible based on patient's age to complete this topic Medical Devices Not on file Insurance MEDICARE PART A & B MEDICARE PART A & B MEDICARE PART A & B MEDICARE PART A & B MEDICARE PART A & B MEDICARE PART A & B Care Teams Hoister Relationship Specialty Start Date End Date Nathan Orr MD [address] [place] [address] [place] [address] PCP - General Internal Medicine 10/04/24 Additional Source Comments The information contained in this document represents components of the legal health record. It is not the complete legal health record.[facility]
[2024-10-10 11:05] LABS: Anion Gap 14 (12-20); Blood Urea Nitrogen 9 mg/dL (9-16); Calcium 8.9 mg/dL (8.4-10.2); Carbon Dioxide 25 mmol/L (22-29); Chloride 109 mmol/L (96-108); Estimated Glomerular Filt Rate > 60; Potassium 4.5 mmol/L (3.3-5.1); Sodium 143 mmol/L (135-145)
== END 2024-10-10 08:26 | disposition home or self-care (01) ==
LOC: HO.LAB 08:25
PROVIDERS: Surgery; Absent Provider Physician Assistant Medical; PCP Internal Medicine; Visit Provider Internal Medicine
DX: E87.5 Hyperkalemia (principal); Z90.49 Acquired absence of other specified parts of digestive tract
CPT/HCPCS: 36415; 80048; 86140

== ENCOUNTER 2025-01-04 11:33 | Outpatient (AMB) | payer MEDICARE, SELFPAY ==
--- NOTE | 2025-01-04 11:47 | A.OFFPC_ITS ---
Vital Signs 01/04/25 11:49 Height 5 ft 4 in Weight 149 lb 2 oz BMI 25.6 BP 130/70 Blood Pressure Location Lt brachial Position Sitting Pulse 57 Pulse Source Pulse Oximeter Temp 97.1 F Temp Source Temporal Artery Scan Pulse Oximetry (%) 98 Oxygen Delivery Method Room Air Intake Visit Reasons: follow up-needs A1C Intake Note: Patient is here to follow up on HTN, CAD. Lay Out Former Required: No Cloth Winding Supervisor: Not Required per policy Accompanied by: Self / Same As Patient Allergies No Known Allergies Allergy (Mild, Verified 01/04/25 11:48) N/A Tobacco use date assessed: 01/04/25 Fall risk assessment: No Falls in past year Last assessed Fall Risk: 01/04/25 Dental Screening Dental Screen Date: 08/12/24 [facility] Medical History Gallstones Hospital discharge follow-up Hyperkalemia Adrenal nodule History of ST elevation myocardial infarction (STEMI) Ischemic cardiomyopathy History of complete heart block Hypertension Coronary artery disease History of pacemaker Surgical History S/P cholecystectomy (07/27/24) H/O hand surgery History of bladder surgery H/O hernia repair History of low anterior resection of rectum History of coronary artery stent placement Family History Mother No problems noted. Father No problems noted. Social History Household Members: Spouse Housing: House Are you a primary medicare sales representative to a significant other at home: No Do you presently have visiting nurse or other home services: No Alcohol intake: former Patient Tobacco Use Status: Former Tobacco user Tobacco use type: Cigarette Cigarette Packs Per Day: 0.25 Years Smoked: 45 e-Cigarette/Vaping Use: Never Used Second Hand Smoke Exposure: Yes service: No Current occupational status: retired Cognitive needs: Yes (Walker) Hearing needs: No Vision needs: No Questionnaire Thrive Questionnaire Date Thrive assessed: 01/04/25 I am a: Patient What is your living situation today?: I have a steady place to live Within the past 12 months, did the food you bought not last and you didn't have the money to get more?: I choose not to answer this question Within the past 12 months, did you worry whether your food would run out before you got money to buy more?: I choose not to answer this question Do you have trouble paying for medicines?: No Do you have trouble getting transportation to medical appointments?: No Do you have trouble paying your heating and electricity bill?: No Do you have trouble taking care of your child, family member or friend?: No Do you have trouble with day-to-day activities such as bathing, preparing meals, shopping, managing finances, etc.?: No Are you currently unemployed and looking for a job?: I choose not to answer this question Are you interested in more education?: I choose not to answer this question Please select the resources that you would like help with: None Currently or been in a relationship where the following occur: No concerns reported THRIVE Score: 0 AUDIT C Alcohol Use Questionnaire (AUDIT-C) 1. How often do you have a drink containing alcohol?: Never Total Score: 0 DOUGLAS-7 AMB Questionnaire DOUGLAS-7 Date DOUGLAS - 7 assessed: 05/27/24 Feeling nervous, anxious, or on edge: 0 = Not at all Not being able to stop or control worryin = Not at all Worrying too much about different things: 0 = Not at all Trouble relaxin = Not at all Being so restless that it is hard to sit still: 0 = Not at all Becoming easily annoyed or irritable: 0 = Not at all Feeling afraid as if something awful might happen: 0 = Not at all Total DOUGLAS-7 score (0-4 normal; 5-9 mild; 10-14 moderate; 15-21 severe): 0 Source: Developed by Drs. Edy Beltran, Skylar Dykes, Jose Angel Partida and colleagues, with an educational rosalba from [employer]. Physical exam (Primary Care) Vital Signs: Last Vital Signs Temp 97.1 F 01/04/25 11:49 Pulse 57 01/04/25 11:49 BP 130/70 01/04/25 11:49 Pulse Ox 98 01/04/25 11:49 Oxygen Delivery Method Room Air 01/04/25 11:49 BMI result Body Mass Index 25.6 Tobacco/Smoking Status: Tobacco use Status Tobacco use date assessed 01/04/25 01/04/25 11:54 Patient Tobacco Use Status Former Tobacco user 01/04/25 11:54 Tobacco use type Cigarette 01/04/25 11:54 e-Cigarette/Vaping Use Never Used 01/04/25 11:54 Thrive Assessment: Date of Thrive Assessment Date Thrive assessed 01/04/25 01/04/25 11:54 Currently or been in a relationship where the following occur: No concerns reported Coding Level of Care Code Est Pt Level 4 (66796) Complex EM visit Add On G2211 Diagnoses Coronary artery disease I25.10 Assessment & Plan Assessment & Plan (1) Coronary artery disease: Code(s): I25.10 - Atherosclerotic heart disease of [place] coronary artery without angina pectoris Category: Medical Plan: History of Present Illness - The patient is a 74-year-old female presenting for a routine follow-up visit. - She reports feeling well following a recent cholecystectomy. - Her hypertension is managed by her educational guidance counselor, Dr. Jung, and she continues to take her prescribed medications. - Her last blood work was performed in July, prior to her surgery. - She denies any history of diabetes mellitus. - She has declined the influenza vaccine and states she has never had the flu. Social History - The patient lives at home with her . - She reports her functional status has improved, and she is now able to get around and participate in grocery shopping. - She cooks at home. - She does not drive. Review of Systems - Constitutional: Reports feeling well and sleeping well. - HEENT: Reports hearing is okay and she can have conversations on the phone. - Endocrine: Denies diabetes. - Genitourinary: Denies any urinary issues. Physical Exam General: Cooperative and healthy appearing Nutritional Appearance: Well nourished Orientation/consciousness: Patient oriented x3 Limitations: No limitations Head: Normal to inspection General: Appearance normal, both eyes and all related structures Neck: Normal visual inspection Chest: Normal palpation of entire chest wall Respiratory: N ormal respiratory effort Neurology: Patient oriented x3, no trouble sleeping, hearing is okay, able to make phone conversations Results Plan - Routine blood work will be ordered. - The patient will complete blood work prior to her next visit. - A follow-up appointment is scheduled in six months. Discussion Notes I discussed with the patient that she is feeling well since her gallbladder surgery. We reviewed her ongoing care for hypertension, which is managed by her educational guidance counselor, Dr. Jung. I advised that I will order routine blood work, which she agreed to complete before her next visit. The patient declined the influenza vaccine. We will have a follow-up visit in six months. Patient Instructions - Please complete the blood work that was ordered for you before your next visit. - Please schedule a follow-up appointment to see me in six months.
[2025-01-04 11:49] VITALS: BP 130/70; PULSE 57; TEMP 36.2; O2SAT 98; BMI 25.6
--- OUTSIDE RECORDS SUMMARY | 2025-01-04 14:24 | XMS_ITS | Clinical Summary ---
Author Organization [facility] Address [address] [place] [id number] Phone Care Team Providers Care Vegetable Packer Name Role Phone Ghassan Anton MD Primary Care Provid er Allergies No known active allergies Medications clopidogrel (PLAVIX) 75 mg tablet Take 1 tablet by mouth every morning. 11/09/2024 Active metoprolol succinate (TOPROL-XL) 25 MG 24 hr tablet Take 1 tablet by mouth every morning. 11/09/2024 Active atorvastatin calcium (ATORVASTATIN ORAL) Take by mouth. Unsure of dose Active Active Problems Problem Noted Date Diagnosed Date Encounter to establish care 12/09/2024 Assessment & Plan (12/09/2024 8:28 AM EDT): She is here to establish care from our other office in [place] Cardiac murmur, unspecified 12/09/2024 Assessment & Plan (12/09/2024 8:28 AM EDT): She does not have any significant aortic stenosis or mitral regurgitation she has a dilated aortic root we will repeat the echo in 6 months Palpitations 12/09/2024 Assessment & Plan (12/09/2024 8:28 AM EDT): No palpitations at this time Atherosclerosis of [place] coronary artery 2024 Assessment & Plan (12/09/2024 8:28 AM EDT): She had PCI twice rendering her symptom-free last echo done earlier this month shows a normal EF Encounters Date Type Department Care Team Description 12/09/2024 9:00 AM EDT Office Visit [facility] [address] [place] [address] [address] Floor, [address] [place] [address] Gregor Hyde, DO Encounter to establish care (Primary Dx); Cardiac murmur, unspecified; Palpitations; Atherosclerosis of [place] coronary artery of [place] heart without angina pectoris 12/06/2024 10:33 AM EDT - 12/06/2024 11:59 PM EDT Hospital Encounter [facility] [address] [place] [address] Gregor Hyde, DO Discharge Disposition: Home or Self Care 12/01/2024 7:25 AM EDT - 12/01/2024 11:59 PM EDT Hospital Encounter [facility] [address] [place] [address] Gregor Hyde, DO Discharge Disposition: Home or Self Care 10/04/2024 Procedure Pass Echo Lab [address] [place] [address] 10/04/2024 Transcribe Orders [facility] [address], [address] [place] [address] Iraj, Brianna Cardiomyopathy, unspecified (Primary Dx); Dizziness and giddiness [...] on file Sexual Orientation Not on file Last Filed Vital Signs Vital Sign Reading Time Taken Comments Blood Pressure 136/78 12/09/2024 8:29 AM EDT Pulse 60 12/09/2024 8:29 AM EDT Temperature - - Respiratory Rate - - Oxygen Saturation - - Inhaled Oxygen Concentration - - Weight 67.1 kg (148 lb) 12/09/2024 8:29 AM EDT Height - - Body Mass Index - - Plan of Treatment Upcoming Encounters Date Type Department Care Team (Ceferino st Contact Info) Description 12/09/2024 Procedure Pass Echo Lab [address] [place] [address] 06/09/2025 9:30 AM EDT Appointment Echo Lab [address] [place] [address] Gregor Hyde, [address] [place] [phone] 08/14/2025 11:30 AM EDT Office Visit [facility] [address] [place] [address] [address] [facility], [address] [place] [address] Gregor Hyde [address] [address] 12/12/2025 9:15 AM EDT Appointment [facility] [place] [place] [address] Gregor Hyde, [address] [place] [address] Health Maintenance Due Date Last Done Comments Adult Td,Tdap Booster 1948 DEPRESSION SCREENING 1960 SMOKING Hx and SMOKELESS TOB ACCO SCREENING 1961 HEPATITIS C SCREENING 1966 LIPID PANEL 1966 PNEUMOCOCCAL VACCINES (50+ y ears) (1 of 1 - PCV) 1998 ZOSTER VACCINES (1 of 2) 1998 OSTEOPOROSIS SCREENING INITI AL (ONE-TIME) 2013 RSV VACCINE (1 - 1-dose 75+ series) 2023 INFLUENZA VACCINE (#1) 2024 COVID-19 VACCINE ( - 2024-2 6 season) 2024 HEPATITIS A VACCINES Aged Out No long er eligible based on patient's age to complete this topic HIB VACCINES Aged Out No longer eligi ble based on patient's age to complete this topic IPV VACCINES Aged Out No longer eligi ble based on patient's age to complete this topic MENINGOCOCCAL VACCINES (ACWY) Aged Out No longer eligible based on patient's age to complete this topic MENINGOCOCCAL VACCINES (B) Aged Out N o longer eligible based on patient's age to complete this topic Medical Devices Not on file Procedures Procedure Name Priority Date/Time Associated Diagnosis Comments US CAROTID DUPLEX COMPLETE (BILATERAL) Routine 12/06/2024 11:10 AM EDT Dizziness and giddiness TTE COMPREHENSIVE Routine 12/01/2024 9:1 9 AM EDT Cardiomyopathy, unspecified from Last 3 Months Results * US Carotid Duplex Complete (Bilateral) (12/06/2024 11:10 AM EDT) Prox CCA 42 cm/sec Prox CCA 10 cm/sec Mid CCA 60 cm/sec Mid CCA 14 cm/sec Dist CCA 63 cm/sec Dist CCA 15 cm/sec Prox ICA 116 cm/sec Prox ICA 25 cm/sec Mid ICA 52 cm/sec Mid ICA 19 cm/sec Dist ICA 56 cm/sec Dist ICA 20 cm/sec ECA 133 cm/sec Vertebral 38 cm/sec Prox Subclavian 101 cm/sec Prox CCA 45 cm/sec Prox CCA 15 cm/sec Mid CCA 47 cm/sec Mid CCA 14 cm/sec Dist CCA 44 cm/sec Dist CCA 11 cm/sec Prox ICA 60 cm/sec Prox ICA 19 cm/sec Mid ICA 88 cm/sec Mid ICA 27 cm/sec Dist ICA 62 cm/sec Dist ICA 33 cm/sec ECA 115 cm/sec Vertebral 33 cm/sec Prox Subclavian 88 cm/sec Anatomical Region Laterality Modality Heart, Thoracic Vasculature, Neck Ultrasound Narrative 12/06/2024 12:10 PM EDT Impression: Right Side: Internal carotid artery stenosis range: 16-49% Vertebral artery is antegrade Subclavian artery is biphasic. Left Side: Internal carotid artery stenosis range: 16-49% Vertebral artery is antegrade Subclavian artery is biphasic. Carotid Artery Right COMMON CAROTID ARTERY Distal: plaque Distal: calcified INTERNAL CAROTID ARTERY Proximal: plaque Proximal: calcified VERTEBRAL antegrade SUBCLAVIAN ARTERY Proximal: biphasic Carotid Artery Left COMMON CAROTID ARTERY Distal: plaque Distal: calcified INTERNAL CAROTID ARTERY Proximal: plaque Proximal: calcified SUBCLAVIAN ARTERY Proximal: biphasic Introductory Comments Techniques used for this study included: color flow Doppler and spectral waveform Doppler. us Gregor A Arcoleo DO CV US NEUROVASCULAR Final Res ult * TTE COMPREHENSIVE (12/01/2024 9:19 AM EDT) Height 163 cm Weight 66 kg Interventricular Septum Thickness 11 6 - 11 mm Left Ventricle Internal Diameter End Diastole 43 37 - 52 mm Left Ventricle Internal Diameter End Systole 32 <35 mm Left Ventricular Outflow Tract Diameter 21.0 mm Left Ventricular Posterior Wall Thickness 10 6 - 11 mm Left Ventricle Ea Lateral Wave Speed 4.8 cm/s Left Ventricle Ea Septal Wave Speed 4.8 cm/s Ejection Fraction 59 50 - 75 Percent Left Atrium Dimension Anterior-Posterior 44 15 - 40 mm Aortic Valve Regurgitation Pressure Half Time 648 ms Aortic Valve Peak Velocity 1.3 m/s Aortic Valve Peak Gradient 6 mmHg Aortic Valve Mean Gradient 3 mmHg Aortic Valve Time Velocity Integral 279.0 mm Aortic Arch Diameter 25 mm Aortic Sinus Diameter 34 <40 mm Ascending Aorta Diameter 38 <36 mm Inferior Vena Cava Diameter 11 <21 mm Mitral Valve Deceleration Time 229 ms Left Ventricle A Wave Speed 76.2 cm/s Left Ventricle E Wave Speed 37.3 cm/s Pulmonary Valve Peak Velocity 0.8 m/s Pulmonary Valve Peak Gradient 2 mmHg Right Ventricle Basal Diameter 34 25 - 41 mm Tricuspid Valve Peak Velocity 2.5 m/s Raw LV EF% 45 % MV E/E' Tissue Velocity Lateral 7.77 Relative Wall Thickness 0.47 0.22 - 0.42 MV E/A ratio 0.5 MV E/e' septal 7.77 Left Ventricle E/e' Average 7.8 Aortic Valve Prosthetic Peak Gradient 6 mmHg Aortic Valve Prosthetic Mean Gradient 3 mmHg Aorta Sinus Index by Height 2.09 cm/m Aorta Sinus CSA index by Height 5.57 cm2/m Asc Aorta CSA Index by Height 6.95 cm2/m Right Ventricle to Right Atrium Pressure Gradient 25 mmHg Right Ventricle Peak Systolic Pressure (Assuming RAP 10) 35 mmHg MGB CV ECHO TV RVSP (ASSUMING RAP OF 5) 30 mmHg RVSP (Exclusive of RAP) 25 mmHg Pulmonic Valve Prosthetic Peak Gradient 2 mmHg Echo E/Ea 7.77 Body Surface Area 1.71 m2 Left Ventricle indexed to BSA 89.2 g/m2 Left Ventricular Outflow Tract Velocity 0.9 m/s LVOT VTI REST 17.0 cm Aortic Valve Sinus Index by BSA 20 mm/m2 Ascending Aorta Index 22 mm/m2 MGB CV AV DIMENSIONLESS INDEX (PEAK) - STRESS ECHO DOBUT - REST 0.69 Ascending Aorta Index 22 mm Aortic Sinus Index 20 mm Ascending Aorta Diameter 22 mm Aortic Valve Sinus Index 1 20 19 - 27 mm AO ASC DIAM BSA INDEX 22.22 Anatomical Region Laterality Modality Heart Ultrasound Narrative 12/03/2024 9:04 AM EDT Images from the original result were not included. 1. The indication is cardiomyopathy. The estimated ejection fraction of the left ventricle is normal or low normal. I would estimate the ejection fraction is 55 to 60% there is pacing artifact possibly leading to the low normal call on the ejection fraction. Overall it is preserved. Diastolic function was grade 1 there is mild concentric LVH and regional wall motion is normal. 2. Normal RV size and function there is a pacing catheter evident in the right heart. 3. Trileaflet aortic valve there is no evidence of aortic stenosis, the ascending aortic root is 38 mm. 4. Trace mitral and mild tricuspid sufficiency, the PA pressure is normal. 5. Normal pericardium and no prior echo available for comparison. Left Ventricle There is mild concentric hypertrophy. There is normal left ventricular systolic function. The LV ejection fraction is 59% (visually estimated). There is abnormal diastolic function. There is Grade I diastolic dysfunction. Right Ventricle The right ventricle is normal in size. There is a lead (ICD/pacer) present in the right ventricle. There is mildly reduced right ventricular systolic function. Left Atrium The left atrium is normal in size. Right Atrium The right atrium is normal in size. The IVC is normal in size with normal inspiratory collapse. Mitral Valve The mitral valve appears normal. There is mitral annular calcification. There is no mitral stenosis. There is trace mitral regurgitation. Tricuspid Valve The tricuspid valve appears normal. There is no tricuspid stenosis. There is mild tricuspid regurgitation. Aortic Valve The aortic valve is tricuspid. There is no aortic stenosis. The aortic valve peak velocity is 1.3 m/s. The peak and mean aortic valve gradients are 6 mmHg and 3 mmHg respectively. There is mild aortic regurgitation. The aortic sinuses are normal in size. The ascending aorta is dilated. Pulmonic Valve The pulmonic valve appears normal. There is no pulmonic stenosis. There is trace pulmonic regurgitation. Pericardium There is a trace to small pericardial effusion. General Findings The image quality was fair (3). Technique(s) used in the evaluation: Multiplane, Color flow Doppler, Spectral Doppler and Epiaortic scan. Comparison Findings Compared to prior TTE report on 11/19/2023, IAS/IVS The interatrial septum appears normal. The interatrial septum appears thickened consistent with lipomatous hypertrophy (normal variant). There is no evidence of patent foramen ovale (PFO). The interventricular septum appears normal. us Gregor Hyde DO CV ECHO ORDERABLES Final Resu lt from Last 3 Months Insurance MEDICARE PART A & B MEDICARE PART A & B MEDICARE PART A & B MEDICARE PART A & B MEDICARE PART A & B MEDICARE PART A & B Care Teams Vegetable Packer Relationship Specialty Start Date End Date Ghassan Anton MD [address] [place] [id number] PCP - General Internal Medicine 12/01/24 Additional Source Comments The information contained in this document represents components of the legal health record. It is not the complete legal health record.[facility]
--- OUTSIDE RECORDS SUMMARY | 2025-01-04 14:24 | XMS_ITS | Encounter Summary ---
Author Organization [facility] Address [address] [place] [address] Phone Care Team Providers Care Grade Teacher Name Role Phone Nathan Orr MD Primary Care Provider [phone] Ghassan Anton MD Primary Care Provid er Encounter Details Date Type Department Care Team (Late st Contact Info) Description 10/04/2024 Procedure Pass Echo Lab [address] [place] [address] Social History Tobacco Use Types Packs/Day Years [...] on file Sexual Orientation Not on file documented as of this encounter Plan of Treatment Upcoming Encounters Date Type Department Care Team (Late st Contact Info) Description 12/09/2024 Procedure Pass Echo Lab [address] [place] [address] 06/09/2025 9:30 AM EDT Appointment Echo Lab [address] [place] [address] Gregor Hyde, DO [facility] [address] [place] [address] 08/14/2025 11:30 AM EDT Office Visit [facility] [address], [address] [place] [address] Gregor Hyde, DO [address] [facility] [address] [place] [phone] 12/12/2025 9:15 AM EDT Appointment [facility] [address] [place] [address] Gregor Hyde, DO [address] [facility] [address] [place] [phone] documented as of this encounter Visit Diagnoses Not on filedocumented in this encounter Care Teams Grade Teacher Relationship Specialty Start Date End Date Nathan Orr MD [address] [place] [id number] PCP - General Internal Medicine 10/04/24 11/30/24 Ghassan Anton MD [address] [place] [id number] PCP - General Internal Medicine 12/01/24 documented as of this encounter Additional Source Comments The information contained in this document represents components of the legal health record. It is not the complete legal health record.[facility]
== END 2025-01-04 12:05 | disposition home or self-care (01) ==
LOC: HO.HMCH 11:34
PROVIDERS: PCP Internal Medicine; Visit Provider Internal Medicine
DX: I25.10 Atherosclerotic heart disease of native coronary artery without angina pectoris (principal)

== ENCOUNTER → 2025-01-04 11:33 | Outpatient (BNVA) | payer MEDICARE, SELFPAY | PROVIDERS: PCP Internal Medicine; Visit Provider Internal Medicine | DX: I25.10 Atherosclerotic heart disease of native coronary artery without angina pectoris (principal) | CPT/HCPCS: 99212 ==